=== PATIENT | male | born 1960 | race Caucasian/White ===

== ENCOUNTER 2016-10-07 15:54 | Inpatient (IN) | payer MEDICAID, OTHER ==
[~2016-10-07] VITALS: Ht 188 cm; Wt 71.5 kg
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
--- NOTE | ~2016-10-07 | CT4 ---
[facility] A Service of [facility] & [facility] RADIOLOGY TEXT RESULTS PATIENT: FRANCESCA RAI LOCATION: [facility] 333-01 : [birth year] UNIT #: [id number] AGE: [address]: Reece Carter MD SEX: M ORDER DR: [id number] [facility]. [place], [place] [address] [id number] I MR#: [id number] Acc #: [id number] NAME: FRANCESCA RAI : 1960 SEX: M STUDY DATE/TIME: 10/07/2016 17:47 UNIT: CEDOF ROOM: 95646 STUDY DESCRIPTION: CT Abd and Pelv Wo Cont Attending Physician: Reece Carter M.D. Referring Physician: No Primary Care Physician Ordering Physician: Joe Zarate D.O. Primary Care Physician: No Primary Care Physician MEDICAL IMAGING REPORT This report is preliminary unless electronic signature is present EXAM CT abdomen and pelvis without contrast. HISTORY Abdominal pain, upper abdominal epigastric pain for 2 days. Rectal bleeding. TECHNIQUE Axial images performed through the abdomen and pelvis without contrast. Multi-plantar reconstructed images reviewed at a workstation. This CT exam was performed with one or more of the following radiation dose reduction techniques: automatic exposure control, adjustment of mA and/or kV according to patient size, and iterative reconstruction. FINDINGS ABDOMEN: Lung bases demonstrate severe emphysema with extensive right pleural thickening and extensive right pleural and diaphragmatic calcifications. This may be related to prior trauma or infection. Liver, spleen and gallbladder unremarkable. Pancreas and kidneys and adrenal glands unremarkable. Focal inflammatory changes are seen about the distal stomach and first portion of the duodenum could reflect underlying duodenitis or ulcer disease. Further evaluation with endoscopy may be warranted. No free air or free fluid. Visualized colon unremarkable. Diffuse aortic and iliac atherosclerotic changes. PELVIS: Bladder unremarkable. Postsurgical change seen in the right groin from femoral bypass. IMPRESSION 1. Suspected inflammatory changes within the distal stomach or proximal duodenum with bowel wall thickening and inflammation within the adjacent mesentery. This raises a concern for gastritis, duodenitis and/or ulcer disease. Further evaluation with endoscopy recommended. [facility] A Service of [facility] & [facility] RADIOLOGY TEXT RESULTS PATIENT: FRANCESCA RAI LOCATION: [facility] 333-01 : [birth year] UNIT #: [id number] AGE: [address]: Reece Carter MD SEX: M ORDER DR: No perforation or free air seen. 2. Severe emphysema, fibrosis at lung bases with extensive right pleural diaphragmatic calcifications. Dictated by... Kim Goodman M.D. THIS IS AN ELECTRONICALLY VERIFIED REPORT Kim Goodman M.D. at 10/08/2016 1:03 PM Ingrid TD: 10/08/2016 01:16 JOB #: [id number] MEDICAL IMAGING REPORT Page 1 of 1 COPY
--- NOTE | ~2016-10-07 | XA257 ---
[facility] A Service of [facility] & [facility] RADIOLOGY TEXT RESULTS PATIENT: FRANCESCA RAI LOCATION: [facility] 547-01 : [birth year] UNIT #: [id number] AGE: [address]: Sophy Ruiz MD SEX: M ORDER DR: [id number] [facility] [address] [facility]. [place], [place] [address] [id number] I MR#: [id number] Acc #: [id number] NAME: FRANCESCA RAI : 1960 SEX: M STUDY DATE/TIME: 10/11/2016 16:47 [facility] ST[facility]Y DESCRIPTION: XA [place] Arterial/Venous Bleed Attending Physician: Sophy Ruiz M.D. Referring Physician: No Primary Care Physician Ordering Physician: Roberto Richards M.D. Primary Care Physician: No Primary Care Physician MEDICAL IMAGING REPORT This report is preliminary unless electronic signature is present EXAM Mesenteric arteriogram with gastroduodenal artery embolization with conscious sedation. HISTORY Active bleeding duodenal ulcer seen in endoscopy. Significant active GI bleeding. TECHNIQUE The procedure was explained to the patient including risks, benefits, and complications. Informed consent was obtained and a formal time-out procedure was utilized. Informed consent was obtained from the patient's family. Full barrier sterile technique was utilized including long drapes, ChloraPrep skin preparation, cap, gloves, gowns, masks, shoe covers. Conscious sedation was employed with intravenous Versed and Fentanyl that was administered by nursing who was present and monitoring the patient during the examination. Total face time with the patient by the physician 45 minutes. TECHNIQUE Using full barrier sterile technique and following local anesthesia with 1% Xylocaine, a micropuncture set was used access the right common femoral artery. A 5-Canadian dilator was placed over the wire and a 5-Canadian sheath was placed at the groin. Through this a 5-Canadian C2 catheter was used initially to inject the celiac axis. The hydrophilic glide wire would not pass through the CT catheter. A Cobra catheter was used instead, satisfactorily. The Cobra catheter was anchored at the origin of the celiac axis and through this, a 3-Canadian Progreat tracking catheter was passed into the gastroduodenal artery and multiple DSA views were obtained. The catheter was advanced to the site of bleeding and contrast could be seen flowing directly from the catheter into the duodenal bulb. At this location, a series of coils were deposited in the duodenal branch and back into the gastroduodenal artery almost back to the hepatic artery [facility] A Service of [facility] & [facility] RADIOLOGY TEXT RESULTS PATIENT: FRANCESCA RAI LOCATION: [facility] 547-01 : 56 UNIT #: [id number] AGE: [address]: Sophy Ruiz MD SEX: M ORDER DR: origin. 6 coils were used. Three 2 mm x 4 cm coils, L1 3 mm x 5 cm coil, and to 3 mm x 10 cm coils. Packing of the coils was satisfactory. Repeat DSA imaging after coil placement shows no significant flow through the occluded segment. The catheters and sheath were withdrawn. Hemostasis was achieved at the groin with an Angio-Seal device. Total fluoroscopy time 18.2 minutes. Total contrast utilized at 25 mL of Isovue. The patient will be kept on bed rest for 4 hours following the procedure with close monitoring of vital signs. IMPRESSION Technically successful coil embolization of the gastroduodenal artery and the main duodenal branch to the site of bleeding. Dictated by... Jhonny Sanchez M.D. THIS IS AN ELECTRONICALLY VERIFIED REPORT Jhonny Sanchez M.D. at 10/12/2016 3:39 PM LUANN/kyler TD: 10/12/2016 08:31 JOB #: [id number] MEDICAL IMAGING REPORT Page 1 of 1 COPY
--- NOTE | ~2016-10-07 | EKG ---
PATIENT: FRANCESCA RAI UNIT #: [id number] Ventricular Rate: 125 BPM Atrial Rate: 125 BPM P-R Interval: 152 ms QRS Duration: 86 ms Q-T Interval: 326 ms QTC Calculation(Bezet): 470 ms Calculated R [place]: 37 degrees Calculated T [place]: 88 degrees Diagnosis Line: Sinus tachycardia Diagnosis Line: Cannot rule out Inferior infarct , age Diagnosis Line: undetermined Diagnosis Line: ST and T wave abnormality, consider anterolateral Diagnosis Line: ischemia Diagnosis Line: Abnormal ECG Diagnosis Line: No previous ECGs available Diagnosis Line: Confirmed by YEN HOGUE MD ([id number]) on Diagnosis Line: 10/10/2016 5:06:45 PM INTERPRETING MD: LENNIE ERICKSON
--- NOTE | ~2016-10-07 | CR72 ---
[facility] A Service of [facility] & [facility] RADIOLOGY TEXT RESULTS PATIENT: FRANCESCA RAI [address]: [address] : [birth year] UNIT #: [id number] AGE: [address]: Spohy Ruiz MD SEX: M ORDER DR: [id number] [facility] [address] [facility]. [place], [place] [address] [id number] I MR#: [id number] Acc #: [id number] NAME: FRANCESCA RAI : 1960 SEX: M STUDY DATE/TIME: 10/10/2016 5:09 UNIT: [facility] ROOM: [facility] STUDY DESCRIPTION: CR Chest Single View Portable Attending Physician: Sophy Ruiz M.D. Referring Physician: Primary Care Physician No Ordering Physician: Ed Doctor [id number] [facility] Primary Care Physician: Primary Care Physician No MEDICAL IMAGING REPORT This report is preliminary unless electronic signature is present EXAM Portable chest, 10/10/2016 HISTORY Post invasive procedure. Central line placement today. FINDINGS There is no prior chest radiograph for comparison. The heart is normal in size. Right internal jugular central line tip is in the superior vena cava. The lungs are hyperinflated with emphysematous and fibrotic changes characteristic of COPD. Pleural thickening and calcifications are seen at the right lung base. There is no airspace consolidation. There is no pneumothorax. IMPRESSION COPD with right internal jugular central line tip SVC. No pneumothorax. Dictated by... Keanu Olmos M.D. THIS IS AN ELECTRONICALLY VERIFIED REPORT Keanu Olmos M.D. at 10/10/2016 2:13 PM GA/reena TD: 10/10/2016 09:21 JOB #: [id number] MEDICAL IMAGING REPORT Page 1 of 1 COPY
--- NOTE | ~2016-10-07 | A ---
[facility] Nutrition Therapy DATE: 10/10/16 Patient: FRANCESCA RAI Physician: KATHIA Address: [address] [facility] Room/Bed: [address], Zip: [place] [address] Admit Date: 10/07/16 Date of : 56 Height: 6 2 Weight: 159 72.5 NUTRITIONAL ASSESSMENT: REASON: Low BMI, NPO in ICU (rapid response transfer from 10/09) Admitting dx: 56 y/o male admitted with GIB PMH: Depression, ETOH abuse, ischemic R foot, smoker, PTSD, CAD, PVD, HTN Anthropometrics: Ht: 74", Wt: 134 lbs (family confirms; pt is NOT 159 lbs), BMI: 17.3 (underweight) Labs: Na 134, glucose 113, AST 46, Mg 1.5, Phos/K WNL Meds: Zofran prn, therapeutic formula, protonix drip, NSIVF @ 100 ml/hr I/O & Bowel function: BM 10/10 Skin Integrity: Ischemic R foot, no edema Estimated Nutrition Needs: Increased due to underweight status/clinical condition Assessment: Chart reviewed, events noted. Patient on room air, with anxiety/confusion. EGD yesterday (10/09) showed clots in stomach, source of GIB unclear. He is scheduled for amputation of R foot today however due to receiving 4 units of blood and Hgb of 7.8 he may not get surgery today. He remains NPO since yesterday, was on clear liquids prior to NPO status). Has been without adequate nutrition x 3 days. Spoke with family at bedside who confirmed weight of 134 lbs, which puts the pt in the underweight category. They were unsure of recent weight loss. Discussed sending chocolate Ensure once oral diet advances. See RD recs, will follow. Dx: 1) Inadequate energy intake r/t diet not yet advanced AEB clear liquids/NPO x 3 days. 2) Underweight r/t unknown etiology AEB BMI 17.3. Intervention: GI soft diet/ONS Monitoring, Evaluation and Goals: 1. Tolerance of diet advancement. 2. Gradual weight gain towards a healthy BMI range. 3. Lytes WNL. Monitor: per protocol, criteria to determine if above goals met [facility] Nutrition Therapy DATE: 10/10/16 Patient: FRANCESCA LAMBOPHELIAJoshua Physician: KATHIA Address: [address] [facility] Room/Bed: [address], Zip: [place] [address] Admit Date: 10/07/16 Date of : [birth year] Height: 6 2 Weight: 159 72.5 Recommendations: 1. Once medically feasible advance to clear liquid diet and order Ensure clear mixed bolanos TID. Advance to full liquids and then GI soft diet as tolerated. Once diet advanced beyond clear liquids please change oral supplement to chocolate Ensure Enlive BID to provide more kcals/protein to promote weight gain. Once GIB resolved pt will be appropriate for a regular diet. 2. Replace lytes prn. 3. Please weigh q 3 days for monitoring purposes, as he is clinically underweight. RD will follow Moderate nutrition risk Respectfully, Krystal Barnard, TRUDY, CANDE [employer] [facility] cc: client file
--- NOTE | ~2016-10-07 | HP ---
Unit #: [id number] #: [id number] Patient: FRANCESCA RAI [id number] [facility]. [place], [place] [address] [id number] MR#: [id number] NAME: FRANCESCA RAI ROOM: 333 Age: 56 Sex: M Admission Date: 10/07/2016 : 1960 Attending Physician: Reece Carter M.D. HISTORY AND PHYSICAL CHIEF COMPLAINT Epigastric pain, GI bleed, and dark, black tarry stool. DISCUSSION This is a 56-year-old gentleman who has a past medical history significant for history of anxiety, depression, posttraumatic stress disorder, tobacco abuse, and alcohol abuse on a daily basis. He said he had an ischemic right foot. He had a femoral-popliteal bypass two years ago which has failed, and he has been having chronic right foot pain. He was told he needs amputation, but he said he has been holding on it. He has recently been drinking one pint of whiskey on a daily basis to kill the pain and has also been using marijuana on a daily basis. He presented to the emergency room today with the chief complaint of having epigastric pain which has been going on for almost one month and has been having dark, black tarry stool off and on for one week, and with increasing abdominal pain and weakness he came to the ER. He underwent workup, and his CT scan of the abdomen shows inflammatory changes in the distal stomach and also in proximal duodenum consistent with ulceration of the duodenum and gastritis versus peptic ulcer disease. He has been admitted for further workup and evaluation. He has been complaining of severe right foot pain. Denies fever, chills, or any other complaints. PAST MEDICAL HISTORY 1. Peripheral vascular disease. 2. (1) . 3. Ischemic right foot with history of right femoral-popliteal bypass two years ago which has failed. 4. Hypertension. 5. Anxiety and depression/posttraumatic stress disorder. SOCIAL HISTORY He has smoked one pack daily since age 13. He drinks alcohol, one pint of whiskey daily, and marijuana on a daily basis. FAMILY HISTORY Mother and father have history of heart disease and both from lung cancer. HOME MEDICATIONS 1. Zestril 40 mg daily. 2. Citalopram 40 mg daily. REVIEW OF SYSTEMS Unit #: [id number] #: [id number] Patient: FRANCESCA RAI CONSTITUTIONAL: Positive for generalized weakness but no fever. SKIN: No rash. ENDOCRINE: No history of diabetes and no polyuria or polydipsia. PULMONARY: No cough, no wheezing, and no shortness of breath. GASTROINTESTINAL: He reported dark, black tarry stool off and on for one week and diffuse epigastric pain. GENITOURINARY: No dysuria. NEUROLOGIC: No headache, no dizziness, no loss of consciousness. PSYCHIATRIC: Normal mood and affect. EXTREMITIES: Severe right foot pain. PHYSICAL EXAMINATION GENERAL: A middle-aged male lying in the bed comfortably, currently not in any distress. He is alert, awake, and oriented x3. CURRENT VITAL SIGNS: Temperature 98.4, respiratory rate 18, heart rate 90, blood pressure 137/84, and oxygen 100%. HEENT: Pupils equally reactive to light and accommodation. Head is normocephalic and atraumatic. NECK: Supple. No JVD. HEART: S1 and S2, regular rate and rhythm. LUNGS: Clear to auscultation bilaterally. No rhonchi and no wheezing. ABDOMEN: Soft, nontender, and nondistended. Bowel sounds positive. EXTREMITIES: Right foot with positive tenderness on touching in the foot. I did not feel any dorsalis pedis pulse. NEUROLOGIC: No focal neurologic deficit. Cranial nerves II-XII intact bilaterally, 5 out of 5 on both side. SKIN: No rash. PSYCHIATRIC: Normal mood and affect. DIAGNOSTIC STUDIES LABORATORY: INR 0.9. Troponin less than 0.05. WBC 8, hemoglobin 12, hematocrit 38, and platelets of 429,000. Chemistry with sodium of 136, potassium 4, chloride 101, CO2 of 23, glucose 92, BUN 17, and creatinine 0.69. LFTs within normal limits. Lipase 34. IMAGING: CT scan shows inflammatory changes around the distal stomach and proximal duodenum. ASSESSMENT AND PLAN 1. Gastrointestinal bleed with epigastric pain. Differential diagnosis includes gastritis, duodenitis, and peptic ulcer disease. Will keep the patient on clear liquid diet, start on IV Protonix, monitor hemoglobin and hematocrit, and ask Gastroenterology, Dr. Richards, to evaluate. 2. Peripheral vascular disease with ischemic right foot with history of right femoral-popliteal bypass which has failed. As per him, he was told he needs amputation. Will ask Vascular Surgery to evaluate. 3. Hypertension. 4. History of depression and posttraumatic stress disorder. Continue citalopram. 5. Alcohol abuse, uses whiskey one pint on a daily basis. Will place the patient on CIWA protocol. 6. Tobacco abuse. 7. Deep venous thrombosis prophylaxis. Will place the patient on SCDs. 1. Dictated by Martha Sullivan M.D. Unit #: [id number] #: [id number] Patient: CECELIAFRANCESCA Birgit TD: 10/08/2016 14:55 JOB #: [id number] HISTORY AND PHYSICAL Page 1 of 1 X X HISTORY AND PHYSICAL
--- NOTE | ~2016-10-07 | CO ---
Unit #: [id number] #: [id number] Patient: FRANCESCA RAI [id number] [address] [place], [place] [address] [id number] I MR#: [id number] NAME: FRANCESCA RAI ROOM: 562 Age: 56 Sex: M Admission Date: 10/07/2016 : 1960 Attending Physician: Sophy Ruiz M.D. Primary Care Physician: Primary Care Physician No Consultation Date: 10/13/2016 CONSULTATION REPORT REASON FOR CONSULTATION Atrial fibrillation. HISTORY OF PRESENT ILLNESS This is a 56-year-old male with a prior history of hypertension, COPD, severe peripheral artery disease, status post fem-pop bypass in 2014 with persistent chronic foot pain, PTSD, anxiety, depression, tobacco abuse x40 years, alcoholism, and daily marijuana use. He presented to the ER on 10/07 with ongoing epigastric pain and tarry stools for approximately [address] scan of the abdomen showed gastric inflammatory changes consistent with an ulcer. In addition, Vascular was consulted for his ischemic right foot. On 10/10/2016, he underwent right above-knee amputation. Postoperatively, he had a low hemoglobin of 4 to 6. On 10/11/2016, he underwent an EEG with GDA embolization. Last night, he experienced atrial fibrillation with rates in the 150s to 160s. He was given a Cardizem bolus and started on Cardizem drip. He is now in normal sinus rhythm with controlled rate in the 80s. He denies any prior history of cardiac disease. Denies chest pain or shortness of air at rest or with activities. He does report palpitations with episodes of anxiety. States he has PTSD with anxiety attacks. An EKG on 10/09/2016 showed atrial fibrillation with rate of 108, and EKG last night showed atrial fibrillation with rapid ventricular rate of 132. PAST MEDICAL HISTORY 1. Severe peripheral artery disease, status post fem-pop bypass in 2014. 2. Hypertension. 3. Chronic obstructive pulmonary disease. 4. Posttraumatic stress disorder. 5. Anxiety. 6. Depression. 7. Tobacco abuse x40 years. 8. Alcoholism, drinks 1 pint per day. 9. Marijuana use. SOCIAL HISTORY Lives with his . He states he is survivor of [place] and has suffered from PTSD since then. He drinks 1 pint of whisky per day. He has been smoking marijuana everyday due to his chronic foot pain. He does smoke 1 pack per day since the age of 13. FAMILY HISTORY Positive for coronary artery disease in his mother and father. Unit #: [id number] #: [id number] Patient: FRANCESCA RAI PAST SURGICAL HISTORY 1. Right thoracotomy with lung resection for a benign mass. 2. Right femoral-tibial bypass graft with prosthetic graft. 3. Right above-knee amputation on 10/10/2016. 4. EGD with GDA embolization on 10/11/2016. ALLERGIES No known drug allergies. HOME MEDICATIONS Zestril 40 mg p.o. daily and citalopram 40 mg p.o. daily. REVIEW OF SYSTEMS A 10-point review of systems was conducted and was otherwise negative except for what was stated in the HPI. PHYSICAL EXAMINATION VITAL SIGNS: Temperature 98.9, heart rate 85, respiratory rate 18, and blood pressure 117/66. GENERAL APPEARANCE: This is a 56-year-old male, resting in bed, in no acute distress. HEENT: Head is atraumatic and normocephalic. Pupils are equal and reacting to light. Mucous membranes are moist. NECK: Supple. Trachea is midline. Negative for JVD. LUNGS: Clear. Diminished at bases. Nonlabored respirations. EXTREMITIES: Left lower extremity, pulses palpable, no pedal edema. No cyanosis. NEUROLOGIC: Alert and oriented x3. Moves all extremities equally and following commands without difficulty. DIAGNOSTIC STUDIES LABORATORY RESULTS: Sodium 136, potassium 3.5, chloride 108, BUN 9, creatinine 0.5, glucose 89, and magnesium 1.7. Hemoglobin 8.9, hematocrit 27.1, white blood cell count 12.9, and platelets 179. AST 23, ALT 11, and alkaline phosphatase 47. IMAGING STUDIES: Chest x-ray shows normal heart size. Hyperinflated lungs with emphysematous and fibrotic changes characteristic COPD. Pleural thickening and calcification at right lung base. No pneumothorax. CARDIOVASCULAR STUDIES: EKG on 10/09/2016 showed atrial fibrillation with rate of 108. EKG on 10/12/2016, which showed atrial fibrillation with rate of 152. No acute ST changes. ASSESSMENT 1. Upper gastrointestinal bleed secondary to duodenal ulcer, status post esophagogastroduodenoscopy with gastroduodenal artery embolization on 10/11/2016. 2. Peripheral artery disease, status post right above-knee amputation on 10/10/2016. 3. New paroxysmal atrial fibrillation with rapid ventricular rate, now normal sinus rhythm. 4. Anemia. 5. ETOH abuse. 6. Tobacco abuse. Unit #: [id number] #: [id number] Patient: FRANCESCA RAI He has currently normal sinus rhythm. We will discontinue his Cardizem drip and start p.o. Cardizem 30 mg p.o. every 6 hours. We will provide parameters to hold if his rate less than 60 or systolic blood pressure less than 100. We will check an echocardiogram. Check his magnesium level. We will not anticoagulate him due to his high risk for bleeding. Thank you for asking us to see this patient. We appreciate the consult. Dictated by... RIKKI Villalta/kathleen TD: 10/14/2016 05:45 JOB #: [id number] CONSULTATION REPORT Page 1 of 1 X X CONSULTATION REPORT
--- NOTE | ~2016-10-07 | DS ---
Unit #: [id number] #: [id number] Patient: FRANCESCA RAI [id number] [address] [address] [id number] I MR#: [id number] NAME: FRANCESCA RAI ROOM: 562 Age: 56 Sex: M Admission Date: 10/07/2016 : 1960 Discharge Date: 10/16/2016 Attending Physician: Sophy Ruiz M.D. Referring Physician: No Primary Care Physician Primary Care Physician: No Primary Care Physician DISCHARGE SUMMARY NOTE This is in followup of transition of care note dictated earlier. ADDITIONAL DISCHARGE DIAGNOSES 1. Acute delirium. 2. Systolic congestive heart failure. Ejection fraction 45%. No acute exacerbation. CONSULTANTS Dr. Cevallos, psychiatry. HOSPITAL COURSE Following last dictation, the patient became increasingly agitated and delirious last Sunday. He had been on Celexa as an outpatient, which had not been reinitiated in anticipation of his recent discharge. Ultimately Dr. Cevallos was consulted and the patient was placed back on his Celexa in addition to Vistaril and behavior has been much more appropriate. The patient was monitored all weekend by cardiology. He has converted back to normal sinus rhythm and then changed from Cardizem to metoprolol succinate. Ejection fraction is noted to be mildly low at 45%. Unfortunately, his blood pressure will not tolerate the addition of an TAQUERIA inhibitor at this time secondary to hypotension. This can be reevaluated as an outpatient. The patient is otherwise clinically stable and will be discharged home today with [facility] for a few visits psychiatric. DISCHARGE CONDITION Stable. DISPOSITION Discharge to home. DISCHARGE MEDICATIONS 1. Celexa 40 mg daily. 2. Vistaril 25 mg b.i.d. 3. Toprol XL 25 mg b.i.d. 4. Percocet 10/325 mg 0.5-1 tablet q.6 h. p.r.n. pain. 5. Protonix 40 mg b.i.d. DISCHARGE INSTRUCTIONS The patient was instructed to follow a regular diet. He can increase his activity as tolerated. He is to use a walker with activity. Unit #: [id number] #: [id number] Patient: FRANCESCA RAI FOLLOWUP 1. The patient is to follow up with Dr. Suhail Stevens in one month. 2. The patient is to follow up with Dr. Richards in four to six weeks. 3. The patient will follow up with Dr. Lin in one month as well. Dictated by... pAple Allen/jeevan TD: 10/18/2016 08:50 JOB #: [id number] DISCHARGE SUMMARY Page 1 of 1 X Sophy Ruiz MD X DISCHARGE SUMMARY
--- NOTE | ~2016-10-07 | CO ---
Unit #: [id number] #: [id number] Patient: FRANCESCA RAI [id number] [facility] [address] [facility]. [place], [place] [address] [id number] I MR#: [id number] NAME: FRANCESCA RAI ROOM: 562 Age: 56 Sex: M Admission Date: 10/07/2016 : 1960 Attending Physician: Sophy Ruiz M.D. Primary Care Physician: Primary Care Physician No Consultation Date: 10/15/2016 CONSULTATION REPORT REASON FOR CONSULTATION Followup. DISCUSSION Mr. Flannery is a 56-year-old male, seen in room 562, bed 1, on 10/15/2016 at [facility]. The patient dressed casually, lying comfortably in bed. The patient's family was at the bedside. The patient's vital signs; temperature 98.2, heart rate 66, respiratory rate 18, blood pressure 114/75, and oxygen saturation 98%. The patient reports medication helped him, able to sleep good, feeling better, decrease in anxiety and depression. Denied any psychotic symptom or any suicidal ideation. REVIEW OF SYSTEMS Complete review of systems is unremarkable. MENTAL STATUS EXAMINATION General appearance; the patient dressed casually, lying comfortably in bed. Attention span and concentration, fair. Speech, regular rate and coherent. Oriented in time, place, and person. Mood and affect, sad and dysphoric, but able to smile. Thought process, coherent. Thought content, the patient denied any suicidal or homicidal ideation. Denied any hallucination. Recent and remote memory, fair. Language, intact. Fund of knowledge, fair. Insight and judgment, fair to slightly impaired. DIAGNOSES Psychiatric: Major depressive disorder, recurrent, severe, F33.2; posttraumatic stress disorder, chronic; and anxiety disorder, not otherwise specified, F40.01. ASSESSMENT AND PLAN 1. Supportive psychotherapy and psychoeducation provided to the patient. 2. Educated about benefits and side effects of medication and course and prognosis of illness. 3. Advised to continue with current medication. If needed, consider further adjustment of medication. Please feel free to call if any questions, telephone #[phone]. Dictated by... Girish Cevallos M.D. ARASELI/kathleen Unit #: [id number] #: [id number] Patient: FRANCESCA RAI TD: 10/15/2016 19:52 JOB #: [id number] CONSULTATION REPORT Page 1 of 1 X Girish Cevallos MD CONSULTATION REPORT
--- NOTE | ~2016-10-07 | CO ---
Unit #: [id number] #: [id number] Patient: FRANCESCA HENDRICKS [id number] [facility] [address] [facility]. [place], [place] [address] [id number] I MR#: [id number] NAME: FRANCESCA HENDRICKS ROOM: 333 Age: 56 Sex: M Admission Date: 10/07/2016 : 1960 Attending Physician: Reece Carter M.D. Primary Care Physician: Primary Care Physician No Consultation Date: 10/08/2016 CONSULTATION REPORT CHIEF COMPLAINT Pain, right foot. HISTORY OF PRESENT ILLNESS Mr. Hendricks is a 56-year-old gentleman with a history of peripheral artery disease, who states that he underwent a right leg bypass with an artificial graft at [facility] about 2 years ago. He reports that his bypass graft thrombosed about 2 months ago. He was told that he has no alternatives except undergo a right above-knee amputation. He was not ready to proceed with amputation, so he was declined to have any type of intervention. The pain in his foot is so bad that has been drinking about one pint of liquor a day. However, he is now reporting blood in his stool. He presented to the emergency room at [facility] for further evaluation. He states that he was ambulatory when his bypass graft was open, but he has not been able to ambulate well since that time, because of pain in his right foot. He denies any similar pain in his left foot. He has never had ulceration or gangrene of his feet. He denies any fevers or chills. He states that he has been diagnosed with bleeding from his stomach in the past. He was on Coumadin to help keep his right leg bypass graft open, but his Coumadin was discontinued when he began bleeding from his stomach. PAST MEDICAL HISTORY Hypertension, hyperlipidemia, coronary artery disease. PAST SURGICAL HISTORY 1. Right thoracotomy with lung resection for a benign mass. 2. Right femoral tibial bypass graft with prosthetic graft. MEDICATIONS Lisinopril 40 mg p.o. daily, citalopram 40 mg p.o. daily. Since admission, he has also been started on Protonix and Zofran. ALLERGIES Penicillin. He is not sure what type of problem penicillin causes him. SOCIAL HISTORY He is and lives in [place]. 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 He smokes one pack of cigarettes per day. He drinks one pint of alcohol per day. He also smokes marijuana. FAMILY HISTORY Both parents had heart disease. He states that both parents of lung Unit #: [id number] #: [id number] Patient: FRANCESCA HENDRICKS cancer related to asbestos exposure. REVIEW OF SYSTEMS Positive for GI bleeding as described above. Otherwise 10-point review of systems negative. PHYSICAL EXAMINATION VITAL SIGNS: Temperature 97.4, pulse 62, respirations 16, blood pressure 112/75. GENERAL APPEARANCE: Thin white male, relatively stoic. Cooperative. Fully alert and oriented. Fair historian. No acute distress. HEENT: Extraocular movements intact. No xanthelasma of the eyelids. Oral mucosa is pink and moist. NECK: No cervical bruits. No JVD. LUNGS: Decreased breath sounds bilaterally. Clear. No use of accessory respiratory muscles. HEART: Regular rate and rhythm without murmur. No extra heart sounds. CHEST: Well-healed right lateral thoracotomy scar. ABDOMEN: Soft, nondistended, and nontender. No palpable masses. No palpable hepatomegaly or splenomegaly. EXTREMITIES: Both feet are cool. There is dependent rubor of the right foot. There is an open wound on the plantar aspect of the right fifth metatarsal head, which measures about 15 mm x 10 mm. There is no erythema, fluctuance, or drainage associated with his right foot wound. There are multiple well-healed surgical scars on the right leg including one over the right dorsalis pedis artery. Radial and femoral pulses are palpable bilaterally. Popliteal, dorsalis pedis, and posterior tibial pulses are not palpable on either side. DIAGNOSTIC STUDIES LABORATORY RESULTS: Remarkable for hemoglobin of 10.0 and white blood count 7.3. BUN and creatinine are 15 and 0.6 respectively. Estimated GFR is 110. Coags are normal. IMPRESSION 1. Ischemic rest pain of the right foot. Status post failed right femoral tibial bypass. 2. Active gastrointestinal bleeding. Evaluation of his gastrointestinal bleed is currently underway. He is tentatively scheduled for an esophagogastroduodenoscopy on 10/09/2016. 3. Hypertension. 4. Hyperlipidemia. 5. History of coronary artery disease. PLAN My recommendation would be to perform a lower extremity arterial segmental pressure to better evaluate the severity of his ischemia. If he requires an amputation, the segmental pressure will also help to determine his level of the amputation. I would also recommend a lower extremity arteriogram to see if he is a candidate for redo bypass surgery for attempted limb salvage. We can tentatively schedule arteriogram for 10/09/2016 or 10/10/2016 depending on the schedule in the timing of the upper GI endoscopy. Based on the results of the arteriogram, we can decide to proceed with redo right lower extremity revascularization versus primary amputation. The risks, benefits, and alternatives of the procedure were discussed with Unit #: [id number] #: [id number] Patient: FRANCESCA HENDRICKS the patient. Dictated by... Apple Kim/kathleen TD: 10/08/2016 12:16 JOB #: [id number] CONSULTATION REPORT Page 1 of 1 X Suhail Stevens MD X CONSULTATION REPORT
--- NOTE | ~2016-10-07 | TOC ---
Unit #: [id number] #: [id number] Patient: FRANCESCA RAI [id number] [address] [place], [place] [address] [id number] I MR#: [id number] NAME: FRANCESCA RAI ROOM: 562 Age: 56 Sex: M Admission Date: 10/07/2016 : 1960 Attending Physician: Sophy Ruiz M.D. Referring Physician: No Primary Care Physician Primary Care Physician: No Primary Care Physician TRANSFER OF CARE SUMMARY ANTICIPATED DATE OF DISCHARGE 10/14/2016. PRINCIPAL DIAGNOSES 1. Hemorrhagic shock secondary to number two. 2. Acute upper GI bleed secondary to duodenal ulcer, now status post embolization of the gastroduodenal artery. 3. Acute blood loss anemia, status post transfusion of six units of packed red blood cells. 4. Severe right lower extremity peripheral arterial disease, status post right xooxo-qyr-blik amputation. 5. New onset atrial fibrillation with rapid ventricular response, now converted back to normal sinus rhythm. 6. Non-anion gap metabolic acidosis. 7. Chronic alcohol abuse with very mild delirium tremens, now resolved. 8. Chronic obstructive pulmonary disease. 9. Acute hypoxic respiratory failure secondary to blood loss, now resolved. 10. Under weight. 11. Severe protein malnutrition. 12. History of hypertension with stable blood pressure currently. 13. Peripheral arterial disease. 14. Anxiety and depression. 15. PTSD. 16. Tobaccoism. CONSULTANTS Dr. Richards, gastroenterology. Dr. Stevens, vascular surgery. Dr. Ohara, pulmonology. PROCEDURES 1. EGD on 10/09/2016, with residual blood and clots and food residue in the fundus of the stomach. No active bleeding was noted. The rest of the upper gastrointestinal tract was normal. 2. Repeat EGD on 10/11/2016 with a large duodenal ulcer near the posterior duodenal bulb with a pulsating visible vessel; 3 cc of 1:10,000 epinephrine and heater probe were applied. 3. Mesenteric arteriogram with gastroduodenal artery embolization on 10/11/2016. 4. Ultrasound-guided cannulation of the left common femoral artery, abdominal and pelvic arteriogram, selective right lower extremity arteriogram and placement of left common femoral artery 5-Frisian Minx closure device on 10/09/2016. Unit #: [id number] #: [id number] Patient: FRANCESCA RAI 5. Right hkoha-hpd-xonv amputation on 10/10/2016. 6. Central line placement which occurred without complication. DIAGNOSTIC DATA IMAGING: CT scan of the abdomen and pelvis without contrast on 10/07/2016, with inflammatory changes of the distal stomach or proximal duodenum with bowel thickening, inflammation within the adjacent mesentery. Severe emphysema or fibrosis of the lung bases noted. Chest x-ray on 10/10/2016 with changes of chronic obstructive pulmonary disease. CLINICAL HISTORY/HOSPITAL COURSE Mr. Rai is a 56-year-old male admitted to the hospital due to having black tarry stools at home. The patient had been drinking alcohol heavily for quite some time to numb pain of chronic ischemic right foot, for which he did not want amputation. In the emergency department he was Hemoccult positive. Hemoglobin was found to be 12 and the patient was subsequently admitted. In regard to the patient's GI bleed, Dr. Richards was consulted. The patient was placed on Protonix IV q.12 h. The following morning hemoglobin was down to 10.0 and by the morning of the it dropped to 8.3. Plan was for a routine EGD on the . However, the patient developed significant amount of bright red blood per rectum and subsequently became hypotensive, tachycardic and hypoxic. He was subsequently transferred to the ICU and given aggressive fluid resuscitation. Hemoglobin following this episode dropped to as low as 4.9 and the patient was transfused 2 units of packed red blood cells. Later that day, when blood pressure and respiratory status were stable, the patient underwent the first of his EGDs with finding of a large clot. He was placed on Protonix drip. Just prior to this EGD he was continued on Protonix drip. However, the patient continued to be transfused and hemoglobin continued to drop back down. A second EGD was done on the , with findings as noted and the patient underwent epinephrine injection and heat probe placement. He subsequently was sent to IR and underwent embolization of his gastroduodenal artery. After this procedure hemoglobin has been trending upward and is now in the 8's. He has had no further abdominal pain and is tolerating a diet. He has been transitioned to oral Protonix. Need for alcohol cessation has been discussed extensively. The patient also needs to avoid NSAIDs in the future. Vascular surgery was consulted, given the patient's chronic right lower extremity ischemia, for which he had avoided amputation. He was seen her by vascular and on the prior to his large blood bowel movement underwent arteriogram which revealed no blood flow to the right lower extremity and plans were for an kvikk-cno-baxu amputation. After discussion with Dr. Richards, the patient subsequently underwent his right sfqve-twg-dbkq amputation on the . He is still having a little bit of oozing from the wound site, but otherwise in regard to this condition the patient is stable. He has received his AmpuShield. I will note the patient has no insurance and does not qualify for Medicaid. His family is well aware that he will have to go home and he does have a nurse in the family who is going to help him with physical therapy at home. I am going to ask [place] to evaluate to hopefully help with perhaps reduced cost therapy on an outpatient basis. As noted above, the patient did have significant alcohol use, but only had Unit #: [id number] #: [id number] Patient: FRANCESCA RAI very mild withdrawal. No type of seizure. He is going to be seen by social work regarding alcohol treatment. The patient did have a very short run of atrial fibrillation with his initial hypotension when transferred to the unit, but then transitioned back to normal sinus rhythm. However, last evening he returned to atrial fibrillation and was placed on Cardizem drip, which has converted him back to normal sinus rhythm. I am awaiting cardiology evaluation and will likely transition the patient to oral rate control medications. At this point in time, given his other conditions, he is a very poor candidate for anticoagulation and this would not be in his best interest. As noted above, the patient has no medical insurance and is unable to get it through his 's employer at this time and makes too much for Medicaid. I believe that the family is in the process of trying to perhaps arrange insurance through the exchange. The family, however, is agreeable to taking the patient home with the necessary equipment and we will try to arrange outpatient physical therapy at reduced cost at [facility]. I anticipate home within the next 24-48 hours and further hospital course will be dictated as an addendum. Dictated by... Sophy Ruiz M.D. CARLYH/gz TD: 10/13/2016 09:23 JOB #: [id number] TRANSFER OF CARE SUMMARY Page 1 of 1 X Sophy Ruiz MD X TRANSFER OF CARE SUMMARY
--- NOTE | ~2016-10-07 | CO ---
Unit #: [id number] #: [id number] Patient: FRANCESCA HENDRICKS [id number] [address] [place], [place] [address] [id number] I MR#: [id number] NAME: FRANCESCA HENDRICKS ROOM: [facility] Age: 56 Sex: M Admission Date: 10/07/2016 : 1960 Attending Physician: Sophy Ruiz M.D. Consultation Date: 10/09/2016 CONSULTATION REPORT REASON FOR CONSULTATION Upper gastrointestinal bleed, melena, and anemia of acute gastrointestinal blood loss. HISTORY OF PRESENT ILLNESS Mr. Hendricks is a 56-year-old white gentleman, who has presented with pain in the right foot and has been found to have failed femoral-popliteal bypass done couple of years ago with recurrent ischemia of the right foot. In addition, he also presents with history of epigastric pain along with black tarry stools for about a week before presentation. The patient was found to have a normal hemoglobin at admission which has since dropped from 12 to 8. PAST MEDICAL HISTORY Significant for history of anxiety, depression, hypertension, PTSD, ischemic right foot with history of right femoral-popliteal bypass surgery done years ago, history of peripheral arterial disease. MEDICATIONS At home included citalopram and Zestril. SOCIAL HISTORY Smokes a pack of cigarette daily from the past 40 to 45 years. Does drink alcohol, 1 pint of whiskey on a daily basis and uses marijuana on a daily basis. ALLERGIES No known drug allergies. FAMILY HISTORY Heart disease and lung cancer in both parents. REVIEW OF SYSTEMS Detailed review of organ systems does not reveal any recent weight loss. No history of fever, chills, or rigors. No history of headache, seizures, chest pain, or syncope. No history of cough, expectoration, or hemoptysis. No history of dysuria, hematuria, or pyuria. No history of focal seizures or extremity weakness. There is history of right foot pain from the ischemic foot. PHYSICAL EXAMINATION GENERAL: He is alert and oriented, and appears comfortable. VITAL SIGNS: Stable with a temperature of 98.5, pulse is 95 per minute and regular, respirations 18, blood pressure is 100/70. He weighs 134 Unit #: [id number] #: [id number] Patient: FRANCESCA HENDRICKS pounds and appears average. HEENT: He has mild pallor. There being no icterus, lymphadenopathy, or peripheral edema. CARDIOVASCULAR: Normal heart sounds. No murmurs. LUNGS: Auscultation over the lungs reveals normal breath sounds. Good air entry. ABDOMEN: Soft and nontender. Liver and spleen are not palpable. Bowel sounds normal. DIAGNOSTIC STUDIES LABORATORY RESULTS: Shows a hemoglobin of 8.3, baseline hemoglobin on admission day before yesterday was 12.5; his white count is normal at 6000; MCV is elevated to 107; and platelet count is 307. INR is 0.9. Serum chemistry shows normal BUN, creatinine, and electrolytes and albumin of 2.8 yesterday and 3.5 day before yesterday. LFTs otherwise normal. Alcohol level on admission was 73. IMAGING STUDIES: The patient had a CT scan of the abdomen and pelvis without contrast, and the latter showed thickening and inflammation of the distal stomach and adjacent duodenum in this entry as well as severe emphysema. IMPRESSION 1. The patient most likely has had an upper gastrointestinal bleed as a result of gastroduodenal ulcer. 2. Anemia of acute gastrointestinal blood loss. 3. Underlying chronic obstructive pulmonary disease and emphysema. 4. Right ischemic foot as a result of peripheral arterial disease. MANAGEMENT PLAN 1. The patient being seen by Vascular surgery. 2. An upper GI endoscopy and possible endotherapy will be needed and is being scheduled for later today. The pros and cons of procedure, potential risks, and complications were discussed with the patient, he was reassured. Thank you for asking me to see this pleasant gentleman. I appreciate the consult. Dictated by... Apple Kidd/kathleen TD: 10/09/2016 13:11 JOB #: [id number] CC: Apple Perales M.D. Unit #: [id number] #: [id number] Patient: FRANCESCA HENDRICKS CONSULTATION REPORT Page 1 of 1 X Roberto Richards MD X CONSULTATION REPORT
--- NOTE | ~2016-10-07 | OR ---
Unit #: [id number] #: [id number] Patient: FRANCESCA RAI [id number] [address] [place], [place] [address] [id number] MR#: [id number] NAME: FRANCESCA RAI ROOM: [facility] Date of Procedure: 10/09/2016 Admission Date: 10/07/2016 Surgeon: Mariza Queen M.D. : 1960 Attending Physician: Sophy Ruiz M.D. Referring Physician: Primary Care Physician No OPERATIVE REPORT PREOPERATIVE DIAGNOSES Peripheral arterial disease with ischemic rest pain of the right lower extremity. POSTOPERATIVE DIAGNOSES Peripheral arterial disease with ischemic rest pain of the right lower extremity. PROCEDURES PERFORMED 1. Ultrasound-guided cannulation, left common femoral artery. 2. Abdominal and pelvic arteriogram. 3. Selective right lower extremity arteriogram. 4. Placement of left common femoral artery 5-Mosotho Mynx closure device. ANESTHESIA Local with sedation, total time 45 minutes. COMPLICATIONS None. ESTIMATED BLOOD LOSS 10 mL. SPECIMENS None. INDICATIONS FOR PROCEDURE The patient is a 56-year-old gentleman with significant peripheral arterial disease with a past history of bypass of the right lower extremity that had failed 2 years ago. He was offered at that time amputation as no other re-constructable options of the right leg were identified. He deferred at that time, and is now admitted for other reasons, but has increasing in significant rest pain of the right lower extremity. He was seen over the weekend and recommended an arteriogram. He understood the planned procedure including the associated risks, benefits, complications, and alternatives and he wishes to proceed. DESCRIPTION OF PROCEDURE The patient was taken to the operating room, placed on the operating table in the supine position. Following initiation of continuous pulse, pulse oximetry, and blood pressure monitoring by nursing staff, he was given Versed and fentanyl for sedation. Total time of sedation was 45 minutes. Unit #: [id number] #: [id number] Patient: FRANCESCA RAI The bilateral groins were then prepped and draped in normal standard manner. Using fluoroscopy, the femoral heads were identified and marked. Using ultrasound, the left common femoral artery was identified and 1% lidocaine was infused over it. Using the ultrasound, the artery was directly cannulated under direct ultrasound vision with the access needle and a starter wire was then passed into the infrarenal aorta confirmed on fluoroscopy. A 4-Mosotho sheath was advanced over the wire and a sheath arteriogram confirmed common femoral artery placement. An Omni Flush catheter was advanced to the L1 vertebral body. An abdominal and pelvic arteriogram was then performed with 20 mL of contrast at 10 mL/second. Utilizing a glidewire, the Omni Flush catheter was selectively placed into the distal right external iliac artery and then a bolus moraima technique arteriogram of the right lower extremity was performed from the femoral head to the toes with 40 mL of contrast at 4 mL/second. A single arteriogram of the right foot was then performed with 20 mL of contrast at 5 mL/sec. The Omni Flush catheter was withdrawn over a wire and a 5-Mosotho sheath was used to replace this 4-Mosotho sheath. A 5-Mosotho Mynx closure device was then advanced into the sheath and deployed without incident with hemostasis being excellent. Pressure was held on the site for 5 minutes. No bleeding was noted. Dressing applied. The procedure was then terminated. The patient tolerated the procedure well and was taken to the recovery room in stable condition. All needle, sponge, and instrument counts were correct at the end of the case. FINDINGS The abdominal aorta is widely patent from the renal arteries to the aortic bifurcation. There were single renal vessel bilaterally. The right and left common iliac artery, internal iliac artery, and external iliac arteries were patent with mild diffuse atherosclerotic plaque, but no stenosis. The right common femoral artery and profunda femoral artery were widely patent with no stenosis or occlusions. The right superficial femoral artery and popliteal arteries are occluded and did not reconstitute. The anterior tibial artery and peroneal arteries are occluded and did not reconstitute. The posterior tibial artery proximally is occluded, but in the mid calf reconstitutes via collaterals and then is patent for a short distance and is very small and only fills from the mid calf to above the malleolus. There is no observable flow into the right foot. Dictated by... Apple Handy/kathleen TD: 10/10/2016 03:15 JOB #: [id number] Unit #: [id number] #: [id number] Patient: FRANCESCA RAI OPERATIVE REPORT Page 1 of 1 X Mariza Queen MD PROCEDURE OPERATIVE NOTE
--- NOTE | ~2016-10-07 | OR ---
Unit #: [id number] #: [id number] Patient: FRANCESCA RAI [id number] [address] [place], [place] [address] [id number] I MR#: [id number] NAME: FRANCESCA RAI ROOM: 56 Date of Procedure: 10/11/2016 Admission Date: 10/07/2016 Surgeon: Roberto Richards M.D. : 1960 Attending Physician: Sophy Ruiz M.D. OPERATIVE REPORT PREOPERATIVE DIAGNOSIS Upper gastrointestinal bleed. PROCEDURES PERFORMED Upper gastrointestinal endoscopy and hemorrhage control. POSTOPERATIVE DIAGNOSES The patient had a large anterior duodenal ulcer located near the roof of the duodenal bulb. There was a single pulsating visible vessel in the middle of the ulcer. The ulcer was at least 1.52 cm in size. After injection of epinephrine, the visible vessel was coagulated using heater probe application. Subsequently, significant hemorrhage was noted and an Endoclip was applied. The area was then immediately covered with a clot formation. RECOMMENDATIONS The patient has had extremely high risk of recurrent bleed and embolization of the gastroduodenal artery is needed. Discussion was held with intervention radiologist on-call and the patient was taken immediately to the intervention radiology suite for embolization therapy. SEDATION USED MAC. DESCRIPTION OF PROCEDURE Following detailed explanation of the potential risks and complications of an upper endoscopy, namely perforation, bleeding, and complication related to sedation, the patient was brought to GI lab. The patient was laid in the supine position, head of the bed elevated. The procedure was done in intensive care unit. Sedation using MAC was given. A bite-block was placed. Lubricated tip of the Olympus video upper endoscope was passed through bite-block into the proximal esophagus under direct vision. The entire esophageal mucosa was examined and appeared normal. Z-line was nicely demarcated, there being no esophagitis or hiatus hernia. The scope was advanced into the gastric cavity and the latter was insufflated. The entire gastric mucosa appeared clear except for presence of fresh blood entering into the stomach from the duodenum through the pyloric channel. The scope was then advanced and the pylorus was intubated with visualization of the duodenal bulb. A large duodenal ulcer was noted located near the roof posteriorly off the duodenal bulb. The ulcer was at least 1.52 cm in size, grayish-white ulcer base, and a single pulsating visible vessel in the middle. After careful assessment, we proceeded to Unit #: [id number] #: [id number] Patient: FRANCESCA RAI with visible vessel. 1:10,000 epinephrine was injected around the visible vessel, about 3 mL was injected. Then, using heater probe application, the visible vessel was treated by coaptive coagulation, instantly it started to bleed. After significant coaptive coagulation was done, it was felt that continuation will be lead to perforation. A single Endoclip was then applied. The area was rapidly covered with fresh hemorrhage and clot formation making it impossible to visualize the initial area of interest. However, clot formation suggested cessation of hemorrhage. The scope was then withdrawn after suctioning of the blood and blood residue. I then called the Intervention Radiology and spoke with the intervention radiology doctor and the patient was taken down to the intervention radiology suite for embolization therapy. This was done successfully and family was appropriately kept informed throughout the procedure. Dictated by... Apple Kidd/kathleen TD: 10/12/2016 08:25 JOB #: [id number] CC: Sophy Ruiz M.D. OPERATIVE REPORT Page 1 of 1 X Roberto Richards MD X PROCEDURE OPERATIVE NOTE
--- NOTE | ~2016-10-07 | EKG ---
PATIENT: FRANCESCA RAI UNIT #: [id number] Ventricular Rate: 108 BPM Atrial Rate: 87 BPM QRS Duration: 90 ms Q-T Interval: 362 ms QTC Calculation(Bezet): 485 ms Calculated R [place]: -19 degrees Calculated T [place]: 118 degrees Diagnosis Line: Atrial fibrillation with rapid ventricular Diagnosis Line: response Diagnosis Line: ST depression, consider subendocardial injury or Diagnosis Line: digitalis effect Diagnosis Line: Nonspecific T wave abnormality , probably Diagnosis Line: digitalis effect Diagnosis Line: Abnormal ECG Diagnosis Line: When compared with ECG of 09-OCT-2016 16:08, Diagnosis Line: (unconfirmed) Diagnosis Line: Atrial fibrillation has replaced Sinus rhythm Diagnosis Line: T wave inversion no longer evident in Anterior Diagnosis Line: leads Diagnosis Line: Confirmed by YEN HOGUE MD ([id number]) on Diagnosis Line: 10/10/2016 5:07:45 PM INTERPRETING MD: LENNIE ERICKSON
--- NOTE | ~2016-10-07 | EKG ---
PATIENT: FRANCESCA RAI UNIT #: [id number] Ventricular Rate: 152 BPM Atrial Rate: 90 BPM QRS Duration: 74 ms Q-T Interval: 274 ms QTC Calculation(Bezet): 435 ms Calculated R [place]: -17 degrees Calculated T [place]: 115 degrees Diagnosis Line: Atrial fibrillation with rapid ventricular Diagnosis Line: response with premature ventricular or aberrantly Diagnosis Line: conducted complexes Diagnosis Line: ST and T wave abnormality, consider anterolateral Diagnosis Line: ischemia or digitalis effect Diagnosis Line: Abnormal ECG Diagnosis Line: When compared with ECG of 09-OCT-2016 18:26, Diagnosis Line: ST more depressed Anterior leads Diagnosis Line: Nonspecific T wave abnormality now evident in Diagnosis Line: Inferior leads Diagnosis Line: T wave inversion now evident in Anterior leads Diagnosis Line: Confirmed by LEILA DICKEY MD ([id number]) on Diagnosis Line: 10/13/2016 9:55:11 AM INTERPRETING MD: KELI ERICKSON
--- NOTE | ~2016-10-07 | OR ---
Unit #: [id number] #: [id number] Patient: FRANCESCA RAI [id number] [address]. [place], [place] [address] [id number] I MR#: [id number] NAME: FRANCESCA RAI ROOM: [facility] Date of Procedure: 10/09/2016 Admission Date: 10/07/2016 Surgeon: Roberto Richards M.D. : 1960 Attending Physician: Sophy Ruiz M.D. Referring Physician: Primary Care Physician No OPERATIVE REPORT PREOPERATIVE DIAGNOSIS Upper gastrointestinal bleed. PROCEDURES PERFORMED Upper gastrointestinal endoscopy. POSTOPERATIVE DIAGNOSES The patient had a large amount of the residual blood and clot and food residue in the fundus of the stomach; however, no active bleeding was noted. The rest of the examination of the upper gastrointestinal tract was normal. The esophagus, the body and antrum of the stomach, duodenal bulb and second and third part of duodenum were all normal. RECOMMENDATIONS The patient is given a dose of erythromycin intravenously as a prokinetic to empty the stomach. We will monitor his hemoglobin and hematocrit and based upon the latter, consider a repeat examination either later tonight or in the next 24 hours. If the patient's hemoglobin is maintained on transfusion, then he can undergo amputation of the right lower extremity. SEDATION USED MAC. DESCRIPTION OF PROCEDURE Following detailed explanation of the potential risks and complications of an upper endoscopy, namely perforation, bleeding, and complications related to sedation, the patient was brought to GI lab. The patient was laid in the left lateral decubitus position. The procedure was done in intensive care unit at the bedside. Lubricated tip of the Olympus video upper endoscope was passed through bite block into the proximal esophagus under direct vision. The entire esophageal mucosa was examined and appeared normal. Z-line was nicely demarcated, there being no esophagitis or hiatus hernia. The scope was then advanced into the gastric cavity. A large amount of clot with food residue and fresh blood was seen in the gastric cavity. Systematic examination of the stomach was performed after washing the entire mucosa. It was however impossible to completely clear the fundic mucosa because of the large clots that could not be suctioned. The body and antrum of the stomach appeared normal. Pylorus was intubated with visualization of normal duodenal bulb and second and third part of the duodenum. Upon withdrawal and retroflexion, incisura, cardia, and greater curve were examined and no additional findings were noted. The scope was then withdrawn into the distal esophagus. The entire esophageal Unit #: [id number] #: [id number] Patient: FRANCESCA RAI mucosa was examined all the way up to pharynx. No additional findings were noted. The patient tolerated the procedure without any postprocedure complications. Dictated by... Apple Kidd/kathleen TD: 10/11/2016 06:26 JOB #: [id number] OPERATIVE REPORT Page 1 of 1 X Roberto Richards MD X PROCEDURE OPERATIVE NOTE
--- NOTE | ~2016-10-07 | EKG ---
PATIENT: FRANCESCA RAI UNIT #: [id number] Ventricular Rate: 85 BPM Atrial Rate: 85 BPM P-R Interval: 156 ms QRS Duration: 122 ms Q-T Interval: 390 ms QTC Calculation(Bezet): 464 ms P [place]: 60 degrees Calculated R [place]: 21 degrees Calculated T [place]: 95 degrees Diagnosis Line: Sinus rhythm with occasional Premature ventricular Diagnosis Line: complexes Diagnosis Line: Possible Lateral infarct , age undetermined Diagnosis Line: Possible Inferior infarct , age undetermined Diagnosis Line: Abnormal ECG Diagnosis Line: When compared with ECG of 12-OCT-2016 23:11, Diagnosis Line: Significant changes have occurred Diagnosis Line: Confirmed by KELVIN ALEXANDER MD ([id number]) on 10/18/2016 Diagnosis Line: 7:41:39 AM INTERPRETING MD: BENJAMIN ERICKSON
--- NOTE | ~2016-10-07 | EKG ---
PATIENT: FRANCESCA RAI UNIT #: [id number] Ventricular Rate: 120 BPM Atrial Rate: 120 BPM P-R Interval: 168 ms QRS Duration: 88 ms Q-T Interval: 332 ms QTC Calculation(Bezet): 469 ms P [place]: 79 degrees Calculated R [place]: 12 degrees Calculated T [place]: 93 degrees Diagnosis Line: Sinus tachycardia Diagnosis Line: Low voltage QRS Diagnosis Line: Marked ST abnormality, possible anterior Diagnosis Line: subendocardial injury Diagnosis Line: Abnormal ECG Diagnosis Line: When compared with ECG of 09-OCT-2016 15:26, Diagnosis Line: (unconfirmed) Diagnosis Line: Minimal criteria for Inferior infarct are no Diagnosis Line: longer Present Diagnosis Line: Confirmed by YEN HOGUE MD ([id number]) on Diagnosis Line: 10/10/2016 5:06:55 PM INTERPRETING MD: LENNIE ERICKSON
--- NOTE | ~2016-10-07 | FU ---
[facility] DATE: 10/13/16 Patient: FRANCESCA RAI Physician: KATHIA Address: [address] [facility] Room/Bed: [address] [place] [address], Zip: [place] [address] Admit Date: 10/07/16 Date of : [birth year] Height: 6 2 Weight: 156 71 NUTRITION MONITORING/FOLLOW-UP: Reason: Nutrition follow-up 56 y/o male admitted for GIB Anthropometrics: ht: 6'2" wt: 156# (71 kg) BMI 17 -Previous weights per pt 134#-139# Labs: Creat 0.5, Ca++ 7.2, Phos 2.3, Alb 1.6 Meds: Protonix, miralax, percocet, zofran, NaCL I&O's: 1723/850. BM 10/12 Skin: PAMUNKEY- RT leg; scar- upper back. No edema. 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 Pt seen for follow-up. Pt was transferred to [facility] from ICU and is now on a healthy heart diet. RD accounting intern visited pt at bedside. Pt reports that he has a good appetite and has had no n/v/d. He ate 100% of his breakfast this morning and was getting ready to order his lunch for today. [employer] indicates a weight of 156#, but pt reports he is 139# and states that is his normal weight. Pt was agreeable to chocolate Ensure TID in order to increase his protein/kcal intake to promote weight gain. noted severe PCM, however pt does not qualify for malnutrition based on weight history and PO intake. Although pt is underweight he states his current weight is his usual body weight and he appears well-nourished upon physical exam. RD will continue to follow. Dx: 1) Inadequate energy intake r/t diet not yet advanced AEB clear liquids/NPO x 5 days -RESOLVED 2) Underweight r/t unknown etiology AEB BMI 17.3 -ACTIVE Intervention: 1. Healthy heart diet 2. Ensure enlive TID Monitoring, Evaluation and Goals: 1. Tolerance of diet advancement -MET [facility] DATE: 10/13/16 Patient: FRANCESCA RAI Physician: KATHIA Address: [address] [facility] Room/Bed: [address] [place] [address], Zip: [place] [address] Admit Date: 10/07/16 Date of : [birth year] Height: 6 2 Weight: 156 71 2. Gradual weight gain towards a healthy BMI range -NOT MET/IN PROGRESS 3. Lytes WNL -IMPROVED/IN PROGRESS Recommendations: 1. Healthy heart diet + Ensure Enlive chocolate TID. 2. Encourage adequate PO intake. 3. Please obtain updated weight and weigh q 3 days as pt is clinically underweight. RD will f/u per protocol as pt is at mild/moderate nutritional risk. Respectfully, Alyssia Lui, Caser Krystal Barnard RD, LD [facility] cc: client file
--- NOTE | ~2016-10-07 | CO ---
Unit #: [id number] #: [id number] Patient: FRANCESCA RAI [id number] [address] [place], [place] [address] [id number] I MR#: [id number] NAME: FRANCESCA RAI ROOM: CIC3 Age: 56 Sex: M Admission Date: 10/07/2016 : 1960 Attending Physician: Sophy Ruiz M.D. Primary Care Physician: Leonor Primary Care Physician Consultation Date: 10/10/2016 CONSULTATION REPORT REASON FOR CONSULT ICU management. CHIEF COMPLAINT Right lower extremity pain and bloody bowel movement. HISTORY OF PRESENT ILLNESS This is a pleasant 56-year-old male with past medical history significant for significant peripheral vascular disease, depression, anxiety, PTSD, alcohol abuse who presented to the emergency room with bloody bowel movement. Apparently, patient has been battling with severe peripheral vascular disease of his right lower extremity for two years and he had a failed femoral-popliteal bypass in the past. Patient was dealing with his pain with drinking more alcohol and taking razo-iuw-gfafxol ibuprofen. After presentation, patient's hemoglobin and blood pressure dropped significantly mandating transfer to the intensive care unit for blood transfusion and hydration. Patient underwent EGD that showed large clot in the stomach, but there was no clear source of the bleeding. The patient continued to require multiple blood transfusions throughout the night with low hemoglobin and active bloody bowel movement. PAST MEDICAL HISTORY 1. Peripheral vascular disease. 2. Hypertension. 3. Ischemic right foot. 4. Anxiety. 5. Depression. 6. PTSD. SOCIAL HISTORY The patient smokes one pack daily since age 13. He drinks alcohol, one pint of whiskey daily and he smokes marijuana on daily basis. FAMILY HISTORY Coronary artery disease and cancer. HOME MEDICATIONS 1. Citalopram. 2. Zestril. 3. Ibuprofen. PAST SURGICAL HISTORY 1. Femoral-popliteal bypass graft in the past. 2. Right thoracotomy with lung resection of benign mass. Unit #: [id number] #: [id number] Patient: FRACNESCA RAI REVIEW OF SYSTEMS A 12-point review of systems was obtained and was negative except for what was mentioned above. PHYSICAL EXAMINATION GENERAL: The patient in no acute distress, but he is very frustrated. VITAL SIGNS: Blood pressure 109/62, respiratory rate 20, O2 saturation 98%. HEENT: Atraumatic, normocephalic. PERRLA. EOMI. NECK: Supple. No JVD. No lymphadenopathy. CHEST: Clear to auscultation bilaterally. HEART: S1, S2. No murmurs, gallops, or rubs. ABDOMEN: Soft, nontender. Bowel sounds are positive. No hepatosplenomegaly. EXTREMITIES: No edema or cyanosis; however, the right foot is cold with no pulse and with decreased sensation. SKIN: No rashes. CENTRAL NERVOUS SYSTEM: Awake, alert, oriented x3. No focal motor/sensory deficit. DIAGNOSTIC STUDIES LABORATORY: Creatinine 0.5, sodium 134, CO2 of 25. Magnesium 1.5. Hemoglobin 7.2. IMAGING: Tests are reviewed and noted. ASSESSMENT 1. Hemorrhagic shock. 2. Acute on chronic anemia due to blood loss. 3. Lower gastrointestinal bleed. 4. Ischemic right foot. 5. History of hypertension. 6. Coronary artery disease. 7. Hypomagnesemia. 8. Depression. 9. Posttraumatic stress disorder. PLAN 1. Will continue blood transfusion to keep hemoglobin above 7. 2. Monitor electrolyte with massive blood transfusion. 3. Status post esophagogastroduodenoscopy but continues to have active bleeding. I suggest involving interventional radiology for direct embolization. 4. Discontinue bicarb drip and change to normal saline. 5. Monitor urine output very closely. 6. Pain medication. 7. CIWA protocol. 8. Sequential compression devices. 9. Protonix drip. Critical care time spent on this patient was 34 minutes. Dictated by... Kenzie Ohara M.D. Unit #: [id number] #: [id number] Patient: FRANCESCA RAI YULISSA/tosha TD: 10/10/2016 09:25 JOB #: [id number] CONSULTATION REPORT Page 1 of 1 X KENZIE RENEE MD CONSULTATION REPORT
--- NOTE | ~2016-10-07 | OR ---
Unit #: [id number] #: [id number] Patient: FRANCESCA HENDRICKS [id number] [address] [place], [place] [address] [id number] I MR#: [id number] NAME: FRANCESCA HENDRICKS ROOM: [facility] Date of Procedure: 10/10/2016 Admission Date: 10/07/2016 Surgeon: Suhail Stevens M.D. : 1960 Attending Physician: Sophy Ruiz M.D. Referring Physician: Primary Care Physician No OPERATIVE REPORT PREOPERATIVE DIAGNOSIS Ischemic rest pain, right foot. POSTOPERATIVE DIAGNOSIS Ischemic rest pain, right foot. PROCEDURE PERFORMED Right above-knee amputation. ANESTHESIA General endotracheal. ESTIMATED BLOOD LOSS 200 mL. COMPLICATIONS None. INDICATIONS Mr. Francesca Hendricks is a 56-year-old gentleman with a history of peripheral artery disease, who has undergone right leg bypass in the past. His right leg bypass graft is now occluded. An arteriogram showed no good options for additional revascularization of his right leg for limb salvage. He was taken to the operating room to undergo right above-knee amputation to relieve his severe ischemic symptoms. DESCRIPTION OF PROCEDURE The patient was placed in supine position. His right leg was prepped and sterilely draped. A circumferential incision was made along the distal thigh. The incision was made in a fishmouth shape on the medial and lateral aspects. Dissection continued through the subcutaneous tissue and fascia circumferentially with the use of electrocautery. The anterior muscle groups were divided with electrocautery. The superficial femoral artery and vein were doubly clamped, divided, and ligated with 3-0 silk ties. There was also a bypass graft identified adjacent to the superficial femoral artery, which was dissected free proximally and then transected. The femur was dissected free circumferentially and skeletonized with a periosteal elevator. The femur was transected with a power saw. The posterior muscle groups were divided with electrocautery. The specimen was removed and sent to pathology. The sciatic nerve was identified and ligated high with a 2-0 Vicryl suture Unit #: [id number] #: [id number] Patient: FRANCESCA HENDRICKS ligature. Additional bleeding vessels were treated with electrocautery. The end of the femur was made smooth with a bone rasp. The wound was irrigated with 1 L of bacitracin irrigation solution. The anterior and posterior fascial edges were approximated using interrupted 0 Vicryl. The skin was closed using skin yusuf. Sterile dressings were applied. An Frandy wrap was applied. Sponge and needle count were correct. The patient tolerated the procedure well and was taken to the postanesthesia care unit in stable condition. Dictated by... Apple Kim/kathleen TD: 10/10/2016 18:49 JOB #: [id number] OPERATIVE REPORT Page 1 of 1 X Suhail Stevesn MD X PROCEDURE OPERATIVE NOTE
[2016-10-07 16:59] LABS: BASOPHIL% 0.4 % (0-2.5); EOSINOPHIL% 0.3 % (0.0-7.0); HEMOGLOBIN 12.5 gm/dL (13.0-16.0); LYMPHOCYTE# 2.3 X10e3 (1.0-3.5); LYMPHOCYTE% 26.6 % (17.0-45.0); MEAN CELL VOLUME 106.3 FL (83-96); MEAN CORPUSCULAR HGB CONC 32.9 g/dL (30-36); MEAN PLATELET VOLUME 7.1 FL (6.5-11.5); MONOCYTE# 0.8 X10e3 (0-1.0); MONOCYTE% 9.2 % (3.0-12.0); NEUTROPHIL# 5.4 X10e3 (1.5-7.1); NEUTROPHIL% 63.5 % (40-75); PLATELET COUNT 429 X10e3 (140-420); RED BLOOD COUNT 3.58 X10e (3.90-5.60); RED CELL DISTRIBUTION WIDTH 14.5 % (11.0-15.5); WHITE BLOOD COUNT 8.5 X10e3 (4.0-10.5)
[2016-10-07 17:04] LABS: DIFF IND YES
[2016-10-07 17:05] LABS: INR 0.9; PARTIAL THROMBOPLASTIN TIME 27.4 SECONDS (23.5-31.3)
[2016-10-07 17:07] LABS: POC - CKMB 3.1 ng/mL (0.0-7.9); POC - TROPONIN <0.05 ng/mL (<=0.05)
[2016-10-07 17:14] LABS: ALBUMIN SERUM 3.5 g/dL (3.5-5.0); BILIRUBIN, DIRECT 0.1 mg/dL (0.0-0.2); BILIRUBIN,TOTAL 1.1 mg/dL (0.2-2.0); BUN/CREATININE RATIO 28.33; CALCIUM SERUM 8.8 mg/dL (8.4-10.2); CREATININE SERUM 0.6 mg/dL (0.6-1.4); GLOM FILT RATE Estimated 110.9 mL/min (>60); PROTEIN TOTAL SERUM 6.9 g/dL (6.0-8.3)
[2016-10-07 17:15] LABS: PLATELET ESTIMATE INCREASED (NORMAL)
[2016-10-07] MEDS ORDERED: CITALOPRAM HBR40 M1 PO (19:23)
[2016-10-07] MEDS ORDERED: ZESTRIL40 MG PO (19:23)
[2016-10-07 19:44] LABS: URINE SOURCE CLEAN CATCH
[2016-10-07 19:51] LABS: URINE APPEARANCE CLEAR; URINE BILIRUBIN NEG (NEG); URINE BLOOD NEG (NEG); URINE COLOR DK YELLOW; URINE GLUCOSE NEG (NEG); URINE KETONE NEG (NEG); URINE LEUKOCYTE ESTERASE NEG (NEG); URINE NITRATE NEG (NEG); URINE PH 5.5 (5-8); URINE PROTEIN NEG (NEG); URINE SPECIFIC GRAVITY 1.028 (1.003-1.035)
[2016-10-07 20:08] LABS: CULTURE INDICATED? NO
[2016-10-07 23:40] LABS: THYROID STIMULATING HORMONE 1.45 uIU/ml (0.34-5.60)
[2016-10-07 23:47] LABS: FREE THYROXIN (T4) 0.94 ng/dL (0.58-1.64)
[2016-10-08 01:42] LABS: BASOPHIL# 0.1 X10e3 (0-0.3); BASOPHIL% 1.2 % (0-2.5); EOSINOPHIL% 0.5 % (0.0-7.0); HEMATOCRIT 30.2 % (38.0-50.0); LYMPHOCYTE# 2.4 X10e3 (1.0-3.5); MEAN CELL VOLUME 105.8 FL (83-96); MEAN CORPUSCULAR HEMOGLOBIN 35.1 PG (28-34); MEAN CORPUSCULAR HGB CONC 33.2 g/dL (30-36); MEAN PLATELET VOLUME 6.7 FL (6.5-11.5); MONOCYTE# 0.7 X10e3 (0-1.0); MONOCYTE% 9.6 % (3.0-12.0); NEUTROPHIL# 4.1 X10e3 (1.5-7.1); NEUTROPHIL% 55.7 % (40-75); PLATELET COUNT 334 X10e3 (140-420); RED BLOOD COUNT 2.86 X10e (3.90-5.60); RED CELL DISTRIBUTION WIDTH 14.5 % (11.0-15.5); WHITE BLOOD COUNT 7.3 X10e3 (4.0-10.5)
[2016-10-08 01:43] LABS: DIFF IND NO
[2016-10-08 01:50] LABS: ALBUMIN SERUM 2.8 g/dL (3.5-5.0); BILIRUBIN,TOTAL 0.7 mg/dL (0.2-2.0); CREATININE SERUM 0.6 mg/dL (0.6-1.4); GLOM FILT RATE Estimated 110.9 mL/min (>60); POTASSIUM 4.1 mmol/L (3.5-5.1); PROTEIN TOTAL SERUM 5.7 g/dL (6.0-8.3)
[2016-10-09 06:46] LABS: HEMATOCRIT 25.6 % (38.0-50.0); HEMOGLOBIN 8.3 gm/dL (13.0-16.0); MEAN CELL VOLUME 107.5 FL (83-96); MEAN CORPUSCULAR HEMOGLOBIN 34.9 PG (28-34); MEAN CORPUSCULAR HGB CONC 32.4 g/dL (30-36); MEAN PLATELET VOLUME 7.3 FL (6.5-11.5); RED BLOOD COUNT 2.38 X10e (3.90-5.60); RED CELL DISTRIBUTION WIDTH 14.1 % (11.0-15.5); WHITE BLOOD COUNT 6.1 X10e3 (4.0-10.5)
[2016-10-09 07:26] LABS: BUN/CREATININE RATIO 26.66; CALCIUM SERUM 8.4 mg/dL (8.4-10.2); CREATININE SERUM 0.6 mg/dL (0.6-1.4); GLOM FILT RATE Estimated 110.9 mL/min (>60); MAGNESIUM 1.7 mg/dL (1.6-3.0); POTASSIUM 4.7 mmol/L (3.5-5.1)
[2016-10-09 15:17] LABS: ARTERIAL BLD GAS O2 SATURATION 98.7 % (90.0-100.0); ARTERIAL BLOOD GAS CARBOXY HB 0.7 %sat (0.0-9.0); ARTERIAL BLOOD GAS HCO3 13.5 mmol/L; ARTERIAL BLOOD GAS PCO2 32.9 mmHg (35.0-45.0); ARTERIAL BLOOD GAS pH 7.222 (7.350-7.450)
[2016-10-09 15:18] LABS: ARTERIAL BLOOD GAS ALLEN TEST NORMAL; ARTERIAL BLOOD GAS ART SITE RIGHT BRACHIAL; ARTERIAL BLOOD GAS DELIVERY NON REBREATHER MASK; ARTERIAL DRAW? YES
[2016-10-09 16:34] LABS: HEMATOCRIT 18.5 % (38.0-50.0)
[2016-10-09 16:37] LABS: HEMOGLOBIN 5.9 gm/dL (13.0-16.0)
[2016-10-09 16:38] LABS: ALBUMIN SERUM 2.1 g/dL (3.5-5.0); BILIRUBIN,TOTAL 0.6 mg/dL (0.2-2.0); BUN/CREATININE RATIO 22.85; CALCIUM SERUM 7.3 mg/dL (8.4-10.2); CREATININE SERUM 0.7 mg/dL (0.6-1.4); GLOM FILT RATE Estimated 104.1 mL/min (>60); POTASSIUM 5.2 mmol/L (3.5-5.1); PROTEIN TOTAL SERUM 4.2 g/dL (6.0-8.3)
[2016-10-09 22:27] LABS: HEMATOCRIT 14.7 % (38.0-50.0)
[2016-10-09 22:32] LABS: HEMOGLOBIN 4.9 gm/dL (13.0-16.0)
[2016-10-09 22:46] LABS: BUN/CREATININE RATIO 21.42; CALCIUM SERUM 6.5 mg/dL (8.4-10.2); CREATININE SERUM 0.7 mg/dL (0.6-1.4); GLOM FILT RATE Estimated 104.1 mL/min (>60); POTASSIUM 4.6 mmol/L (3.5-5.1)
[2016-10-10 04:32] LABS: BASOPHIL% 0.2 % (0-2.5); LYMPHOCYTE# 1.6 X10e3 (1.0-3.5); LYMPHOCYTE% 16.4 % (17.0-45.0); MEAN CORPUSCULAR HEMOGLOBIN 30.9 PG (28-34); MEAN CORPUSCULAR HGB CONC 34.3 g/dL (30-36); MEAN PLATELET VOLUME 7.4 FL (6.5-11.5); MONOCYTE# 0.9 X10e3 (0-1.0); MONOCYTE% 8.6 % (3.0-12.0); NEUTROPHIL# 7.5 X10e3 (1.5-7.1); NEUTROPHIL% 74.8 % (40-75); PLATELET COUNT 180 X10e3 (140-420); RED BLOOD COUNT 2.33 X10e (3.90-5.60); RED CELL DISTRIBUTION WIDTH 20.6 % (11.0-15.5)
[2016-10-10 04:33] LABS: HEMOGLOBIN 7.2 gm/dL (13.0-16.0); MEAN CELL VOLUME 90.1 FL (83-96)
[2016-10-10 04:34] LABS: DIFF IND NO
[2016-10-10 04:48] LABS: ALBUMIN SERUM 2.3 g/dL (3.5-5.0); BILIRUBIN,TOTAL 1.4 mg/dL (0.2-2.0); CALCIUM SERUM 6.7 mg/dL (8.4-10.2); CREATININE SERUM 0.5 mg/dL (0.6-1.4); GLOM FILT RATE Estimated 119.5 mL/min (>60); MAGNESIUM 1.5 mg/dL (1.6-3.0); PHOSPHOROUS 3.6 mg/dL (2.5-4.6); POTASSIUM 4.5 mmol/L (3.5-5.1)
[2016-10-10 09:14] LABS: BASOPHIL% 0.2 % (0-2.5); HEMATOCRIT 22.6 % (38.0-50.0); HEMOGLOBIN 7.8 gm/dL (13.0-16.0); LYMPHOCYTE# 1.5 X10e3 (1.0-3.5); LYMPHOCYTE% 18.3 % (17.0-45.0); MEAN CELL VOLUME 89.2 FL (83-96); MEAN CORPUSCULAR HEMOGLOBIN 30.8 PG (28-34); MEAN CORPUSCULAR HGB CONC 34.5 g/dL (30-36); MEAN PLATELET VOLUME 7.5 FL (6.5-11.5); MONOCYTE# 0.8 X10e3 (0-1.0); NEUTROPHIL% 71.5 % (40-75); PLATELET COUNT 164 X10e3 (140-420); RED BLOOD COUNT 2.54 X10e (3.90-5.60); RED CELL DISTRIBUTION WIDTH 19.4 % (11.0-15.5); WHITE BLOOD COUNT 8.4 X10e3 (4.0-10.5)
[2016-10-10 09:26] LABS: DIFF IND YES
[2016-10-10 09:30] LABS: PARTIAL THROMBOPLASTIN TIME 32.2 SECONDS (23.5-31.3); PROTHROMBIN TIME (PATIENT) 11.1 SECONDS (10.0-11.7)
[2016-10-10 10:55] LABS: PLATELET ESTIMATE NORMAL (NORMAL)
[2016-10-10 10:56] LABS: ANISOCYTOSIS SL
[2016-10-10 10:57] LABS: MICROCYTOSIS MOD; POIKILOCYTOSIS SL
[2016-10-10 12:01] LABS: HEMATOCRIT 21.9 % (38.0-50.0); HEMOGLOBIN 7.6 gm/dL (13.0-16.0); MEAN CELL VOLUME 88.4 FL (83-96); MEAN CORPUSCULAR HEMOGLOBIN 30.8 PG (28-34); MEAN CORPUSCULAR HGB CONC 34.8 g/dL (30-36); MEAN PLATELET VOLUME 7.6 FL (6.5-11.5); RED BLOOD COUNT 2.47 X10e (3.90-5.60); RED CELL DISTRIBUTION WIDTH 19.7 % (11.0-15.5); WHITE BLOOD COUNT 8.2 X10e3 (4.0-10.5)
[2016-10-10 17:06] LABS: BASOPHIL% 0.3 % (0-2.5); EOSINOPHIL% 0.2 % (0.0-7.0); HEMATOCRIT 21.1 % (38.0-50.0); HEMOGLOBIN 7.2 gm/dL (13.0-16.0); LYMPHOCYTE# 1.8 X10e3 (1.0-3.5); LYMPHOCYTE% 20.5 % (17.0-45.0); MEAN CORPUSCULAR HEMOGLOBIN 30.6 PG (28-34); MEAN CORPUSCULAR HGB CONC 34.4 g/dL (30-36); MEAN PLATELET VOLUME 7.5 FL (6.5-11.5); MONOCYTE# 0.7 X10e3 (0-1.0); MONOCYTE% 7.8 % (3.0-12.0); NEUTROPHIL# 6.3 X10e3 (1.5-7.1); NEUTROPHIL% 71.2 % (40-75); PLATELET COUNT 166 X10e3 (140-420); RED BLOOD COUNT 2.37 X10e (3.90-5.60); RED CELL DISTRIBUTION WIDTH 20.1 % (11.0-15.5); WHITE BLOOD COUNT 8.8 X10e3 (4.0-10.5)
[2016-10-10 17:08] LABS: DIFF IND NO
[2016-10-11 06:49] LABS: CALCIUM SERUM 6.9 mg/dL (8.4-10.2); CREATININE SERUM 0.5 mg/dL (0.6-1.4); GLOM FILT RATE Estimated 119.5 mL/min (>60); MAGNESIUM 1.7 mg/dL (1.6-3.0); PHOSPHOROUS 2.3 mg/dL (2.5-4.6); POTASSIUM 3.9 mmol/L (3.5-5.1)
[2016-10-11 06:50] LABS: BASOPHIL% 0.2 % (0-2.5); EOSINOPHIL% 0.2 % (0.0-7.0); LYMPHOCYTE# 1.6 X10e3 (1.0-3.5); LYMPHOCYTE% 16.4 % (17.0-45.0); MEAN CELL VOLUME 89.7 FL (83-96); MEAN CORPUSCULAR HEMOGLOBIN 30.1 PG (28-34); MEAN CORPUSCULAR HGB CONC 33.6 g/dL (30-36); MEAN PLATELET VOLUME 7.7 FL (6.5-11.5); MONOCYTE# 0.9 X10e3 (0-1.0); MONOCYTE% 9.4 % (3.0-12.0); NEUTROPHIL# 7.2 X10e3 (1.5-7.1); NEUTROPHIL% 73.8 % (40-75); PLATELET COUNT 181 X10e3 (140-420); RED BLOOD COUNT 2.22 X10e (3.90-5.60); RED CELL DISTRIBUTION WIDTH 19.7 % (11.0-15.5); WHITE BLOOD COUNT 9.7 X10e3 (4.0-10.5)
[2016-10-11 06:58] LABS: DIFF IND NO; HEMOGLOBIN 6.7 gm/dL (13.0-16.0)
[2016-10-11 15:16] LABS: HEMATOCRIT 22.9 % (38.0-50.0); HEMOGLOBIN 8.1 gm/dL (13.0-16.0)
[2016-10-12 00:27] LABS: BASOPHIL% 0.4 % (0-2.5); DIFF IND NO; EOSINOPHIL% 0.1 % (0.0-7.0); HEMATOCRIT 26.3 % (38.0-50.0); HEMOGLOBIN 8.8 gm/dL (13.0-16.0); LYMPHOCYTE# 1.9 X10e3 (1.0-3.5); LYMPHOCYTE% 15.4 % (17.0-45.0); MEAN CELL VOLUME 86.1 FL (83-96); MEAN CORPUSCULAR HEMOGLOBIN 28.8 PG (28-34); MEAN CORPUSCULAR HGB CONC 33.5 g/dL (30-36); MEAN PLATELET VOLUME 7.6 FL (6.5-11.5); MONOCYTE% 8.1 % (3.0-12.0); NEUTROPHIL# 9.3 X10e3 (1.5-7.1); PLATELET COUNT 159 X10e3 (140-420); RED BLOOD COUNT 3.05 X10e (3.90-5.60); RED CELL DISTRIBUTION WIDTH 18.9 % (11.0-15.5); WHITE BLOOD COUNT 12.2 X10e3 (4.0-10.5)
[2016-10-12 04:34] LABS: BASOPHIL% 0.2 % (0-2.5); EOSINOPHIL% 0.2 % (0.0-7.0); HEMATOCRIT 26.4 % (38.0-50.0); HEMOGLOBIN 8.9 gm/dL (13.0-16.0); LYMPHOCYTE# 1.1 X10e3 (1.0-3.5); LYMPHOCYTE% 9.8 % (17.0-45.0); MEAN CELL VOLUME 86.6 FL (83-96); MEAN CORPUSCULAR HEMOGLOBIN 29.1 PG (28-34); MEAN CORPUSCULAR HGB CONC 33.5 g/dL (30-36); MEAN PLATELET VOLUME 7.8 FL (6.5-11.5); MONOCYTE# 1.1 X10e3 (0-1.0); NEUTROPHIL# 9.1 X10e3 (1.5-7.1); NEUTROPHIL% 79.8 % (40-75); PLATELET COUNT 149 X10e3 (140-420); RED BLOOD COUNT 3.05 X10e (3.90-5.60); RED CELL DISTRIBUTION WIDTH 19.1 % (11.0-15.5); WHITE BLOOD COUNT 11.4 X10e3 (4.0-10.5)
[2016-10-12 04:40] LABS: DIFF IND NO
[2016-10-12 05:14] LABS: CALCIUM SERUM 6.8 mg/dL (8.4-10.2); CREATININE SERUM 0.4 mg/dL (0.6-1.4); POTASSIUM 3.6 mmol/L (3.5-5.1)
[2016-10-12 22:35] LABS: BASOPHIL% 0.1 % (0-2.5); EOSINOPHIL% 0.1 % (0.0-7.0); HEMATOCRIT 27.1 % (38.0-50.0); HEMOGLOBIN 8.9 gm/dL (13.0-16.0); LYMPHOCYTE# 0.7 X10e3 (1.0-3.5); LYMPHOCYTE% 5.4 % (17.0-45.0); MEAN CELL VOLUME 87.3 FL (83-96); MEAN CORPUSCULAR HEMOGLOBIN 28.7 PG (28-34); MEAN CORPUSCULAR HGB CONC 32.8 g/dL (30-36); MEAN PLATELET VOLUME 7.4 FL (6.5-11.5); MONOCYTE# 1.3 X10e3 (0-1.0); NEUTROPHIL# 10.9 X10e3 (1.5-7.1); NEUTROPHIL% 84.4 % (40-75); PLATELET COUNT 172 X10e3 (140-420); RED CELL DISTRIBUTION WIDTH 19.4 % (11.0-15.5); WHITE BLOOD COUNT 12.9 X10e3 (4.0-10.5)
[2016-10-12 22:37] LABS: DIFF IND NO
[2016-10-13 05:31] LABS: BASOPHIL% 0.1 % (0-2.5); HEMATOCRIT 23.7 % (38.0-50.0); HEMOGLOBIN 8.1 gm/dL (13.0-16.0); LYMPHOCYTE# 0.8 X10e3 (1.0-3.5); LYMPHOCYTE% 6.7 % (17.0-45.0); MEAN CELL VOLUME 87.8 FL (83-96); MEAN CORPUSCULAR HEMOGLOBIN 29.8 PG (28-34); MEAN PLATELET VOLUME 7.9 FL (6.5-11.5); MONOCYTE# 1.1 X10e3 (0-1.0); MONOCYTE% 8.8 % (3.0-12.0); NEUTROPHIL# 10.1 X10e3 (1.5-7.1); NEUTROPHIL% 84.4 % (40-75); PLATELET COUNT 179 X10e3 (140-420)
[2016-10-13 05:42] LABS: DIFF IND NO
[2016-10-13 06:02] LABS: ALBUMIN SERUM 1.6 g/dL (3.5-5.0); BILIRUBIN,TOTAL 0.9 mg/dL (0.2-2.0); CALCIUM SERUM 7.2 mg/dL (8.4-10.2); CREATININE SERUM 0.5 mg/dL (0.6-1.4); GLOM FILT RATE Estimated 119.5 mL/min (>60); POTASSIUM 3.5 mmol/L (3.5-5.1); PROTEIN TOTAL SERUM 3.9 g/dL (6.0-8.3)
[2016-10-14 07:18] LABS: HEMATOCRIT 23.1 % (38.0-50.0); HEMOGLOBIN 7.7 gm/dL (13.0-16.0); MEAN CELL VOLUME 89.5 FL (83-96); MEAN CORPUSCULAR HEMOGLOBIN 29.9 PG (28-34); MEAN CORPUSCULAR HGB CONC 33.4 g/dL (30-36); MEAN PLATELET VOLUME 7.9 FL (6.5-11.5); RED BLOOD COUNT 2.58 X10e (3.90-5.60); RED CELL DISTRIBUTION WIDTH 19.9 % (11.0-15.5); WHITE BLOOD COUNT 9.8 X10e3 (4.0-10.5)
[2016-10-14 07:56] LABS: BUN/CREATININE RATIO 22.5; CALCIUM SERUM 7.3 mg/dL (8.4-10.2); CREATININE SERUM 0.4 mg/dL (0.6-1.4); POTASSIUM 3.3 mmol/L (3.5-5.1)
[2016-10-14 21:15] LABS: HEMOGLOBIN 9.1 gm/dL (13.0-16.0)
[2016-10-15 06:27] LABS: HEMATOCRIT 25.6 % (38.0-50.0); HEMOGLOBIN 8.7 gm/dL (13.0-16.0); MEAN CELL VOLUME 87.8 FL (83-96); MEAN CORPUSCULAR HEMOGLOBIN 29.8 PG (28-34); MEAN PLATELET VOLUME 7.8 FL (6.5-11.5); RED BLOOD COUNT 2.92 X10e (3.90-5.60); RED CELL DISTRIBUTION WIDTH 19.1 % (11.0-15.5); WHITE BLOOD COUNT 8.6 X10e3 (4.0-10.5)
[2016-10-15 07:58] LABS: ALBUMIN SERUM 1.7 g/dL (3.5-5.0); BILIRUBIN,TOTAL 0.8 mg/dL (0.2-2.0); CALCIUM SERUM 7.5 mg/dL (8.4-10.2); CREATININE SERUM 0.3 mg/dL (0.6-1.4); GLOM FILT RATE Estimated 147.4 mL/min (>60); MAGNESIUM 1.7 mg/dL (1.6-3.0); POTASSIUM 3.4 mmol/L (3.5-5.1); PROTEIN TOTAL SERUM 4.5 g/dL (6.0-8.3)
[2016-10-16 06:40] LABS: HEMATOCRIT 26.1 % (38.0-50.0); HEMOGLOBIN 8.8 gm/dL (13.0-16.0); MEAN CELL VOLUME 88.9 FL (83-96); MEAN CORPUSCULAR HGB CONC 33.8 g/dL (30-36); MEAN PLATELET VOLUME 7.8 FL (6.5-11.5); RED BLOOD COUNT 2.93 X10e (3.90-5.60); RED CELL DISTRIBUTION WIDTH 18.9 % (11.0-15.5); WHITE BLOOD COUNT 8.7 X10e3 (4.0-10.5)
[2016-10-16 07:15] LABS: CALCIUM SERUM 7.6 mg/dL (8.4-10.2); CREATININE SERUM 0.5 mg/dL (0.6-1.4); GLOM FILT RATE Estimated 119.5 mL/min (>60); MAGNESIUM 1.9 mg/dL (1.6-3.0); POTASSIUM 3.9 mmol/L (3.5-5.1)
[2016-10-16] MEDS ORDERED: VISTARIL PO (12:43)
[2016-10-16] MEDS ORDERED: TOPROL XL PO (12:44)
[2016-10-16] MEDS ORDERED: PROTONIX PO (12:44)
[2016-10-16] MEDS ORDERED: PERCOCET10 PO (12:45)
[2016-12-07] MEDS ORDERED: COMBIVENT U/D3 M2 INH (04:25)
[2016-12-07] MEDS ORDERED: PREDNISONE PO (04:28)
[2016-12-07] MEDS ORDERED: DESYREL50 MG PO (04:30)
[2016-12-07] MEDS ORDERED: BUMEX1 MG PO (04:31)
[2016-12-07] MEDS ORDERED: MULTI-VITAMIN1 EAC1 PO (04:33)
[2016-12-07] MEDS ORDERED: K-TAB ER20 MEQ PO (04:36)
[2016-12-07] MEDS ORDERED: ASCORBIC ACID500 M3 PO (04:36)
== END 2016-10-16 13:46 | disposition home health service (06) | DRG 981 ==
LOC: CED 15:54 → CEDOF 20:15 → C3A PCU 20:15 → CED 20:26 → CEDOF 20:26 → C3A PCU 10-08 07:59 → CEDOF 10-08 07:59 → C3A PCU 10-09 09:30 → CICCU3 10-09 15:26 → C5B 10-12 11:09
PROVIDERS: Emergency Medicine; Internal Medicine; Internal Medicine Endocrinology, Diabetes & Metabolism; Internal Medicine Gastroenterology; Internal Medicine Pulmonary Disease; Nurse Practitioner; Surgery Vascular Surgery
PROC: 05H533Z Insertion of Infusion Device into Right Subclavian Vein, Percutaneous Approach (ICD-10-PCS; 2016-10-08)
PROC: B546ZZA Ultrasonography of Right Subclavian Vein, Guidance (ICD-10-PCS; 2016-10-08)
PROC: 0DJ08ZZ Inspection of Upper Intestinal Tract, Via Natural or Artificial Opening Endoscopic (ICD-10-PCS; 2016-10-09)
PROC: B410YZZ Fluoroscopy of Abdominal Aorta using Other Contrast (ICD-10-PCS; 2016-10-09)
PROC: B41CYZZ Fluoroscopy of Pelvic Arteries using Other Contrast (ICD-10-PCS; 2016-10-09)
PROC: B41FYZZ Fluoroscopy of Right Lower Extremity Arteries using Other Contrast (ICD-10-PCS; 2016-10-09)
PROC: 05HM33Z Insertion of Infusion Device into Right Internal Jugular Vein, Percutaneous Approach (ICD-10-PCS; 2016-10-09)
PROC: B543ZZA Ultrasonography of Right Jugular Veins, Guidance (ICD-10-PCS; 2016-10-09)
PROC: 30233N1 Transfusion of Nonautologous Red Blood Cells into Peripheral Vein, Percutaneous Approach (ICD-10-PCS; 2016-10-09)
PROC: 0Y6F0ZZ Detachment at Right Knee Region, Open Approach (ICD-10-PCS; principal; 2016-10-10 12:00)
PROC: 04V33DZ Restriction of Hepatic Artery with Intraluminal Device, Percutaneous Approach (ICD-10-PCS; 2016-10-11 15:35)
PROC: 0W3P8ZZ Control Bleeding in Gastrointestinal Tract, Via Natural or Artificial Opening Endoscopic (ICD-10-PCS; 2016-10-11 15:35)
PROC: B24BYZZ Ultrasonography of Heart with Aorta using Other Contrast (ICD-10-PCS; 2016-10-13)
DX: K26.4 Chronic or unspecified duodenal ulcer with hemorrhage (principal); T81.19XA Other postprocedural shock, initial encounter; J96.01 Acute respiratory failure with hypoxia; E43 Unspecified severe protein-calorie malnutrition; G92 Toxic encephalopathy; F10.231 Alcohol dependence with withdrawal delirium; F33.2 Major depressive disorder, recurrent severe without psychotic features; R65.10 Systemic inflammatory response syndrome (SIRS) of non-infectious origin without acute organ dysfunction; E87.2 Acidosis; D62 Acute posthemorrhagic anemia; E44.0 Moderate protein-calorie malnutrition; E87.1 Hypo-osmolality and hyponatremia; Z68.1 Body mass index [BMI] 19.9 or less, adult; I48.0 Paroxysmal atrial fibrillation; E83.42 Hypomagnesemia; I70.221 Atherosclerosis of native arteries of extremities with rest pain, right leg; F41.9 Anxiety disorder, unspecified; F17.210 Nicotine dependence, cigarettes, uncomplicated; I10 Essential (primary) hypertension; J44.9 Chronic obstructive pulmonary disease, unspecified; F43.12 Post-traumatic stress disorder, chronic; I25.10 Atherosclerotic heart disease of native coronary artery without angina pectoris; E87.6 Hypokalemia
CPT/HCPCS: 36415; 36430; 36600; 71010; 74176; 75625; 75710; 80048; 80053; 80076; 81003; 82330; 82553; 82607; 82803; 82947; 83690; 83735; 84100; 84132; 84439; 84443; 84484; 85014; 85018; 85025; 85027; 85610; 85730; 86592; 86850; 86900; 86901; 86923; 88307; 93005; 93306; 94760; 94761; 96361; 96374; 96375; 97110; 97116; 97162; 97530; 97535; 99285; C1725; C1760; C1887; C1894; C9113; G0480; G8978-GP; G8979-GP; J0171; J0610; J0690; J1170; J1364; J1630; J1644; J1940; J2060; J2250; J2270; J2370; J2405; J3010; J3370; J3411; J3475; J7042; P9016; P9045; Q9967

== ENCOUNTER 2016-10-27 09:08 | Inpatient (IN) | payer MEDICAID ==
[~2016-10-27] VITALS: Ht 182.9 cm; Wt 49.5 kg
--- NOTE | ~2016-10-27 | FU ---
[facility] Nutrition Therapy DATE: 11/02/16 Patient: FRANCESCA RAI Physician: ABIDA Address: [facility] Room/Bed: [address] [place] [address], Zip: [place] [address] Admit Date: 10/27/16 Date of : 56 Height: 6 0 Weight: 109 49.5 NUTRITION MONITORING/FOLLOW-UP: Reason: PT SEEN FOR FOLLOW-UP DX: SOA, SAMAN Anthropometrics: 6'2", WT: 111# (50.4 KG), BMI: 14.3 -ADMIT WEIGHT: 121# Labs: BUN: 8, ALB: 2.1, NA+:133 Meds: FUROSEMIDE, COLACE, SPIRONOLACTONE, PROTONIX, LAXATIVE, NACL I&O's: 2734/1999 Skin: PREVIOUSLY NOTED; SCROTAL FUNGAL IMPACTION EDEMA: LLE CELLULITIS Estimated Nutrition Needs: INCREASED NEEDS 2' PT UNDERWEIGHT, CURRENT CONDITION, PMH, WEIGHT LOSS Assessment: CHART REVIEWED AND EVENTS NOTED. PT SEEN FOR FOLLOW-UP. PT REPORTS GOOD PO INTAKE AND APPETITE, NO C/O N/V/D. PT REPORTS DRINKING ENSURE SHAKE DAILY. PT CONTINUES TO BE ON REGULAR DIET + [address]. THIS [address] ENCOURAGED ADEQUATE KCAL AND PROTEIN INTAKE, PT AGREED. PT REPORTED NO DIET QUESTIONS AT THIS TIME. RD TO REMAIN AVAILABLE. Dx: 1. UNDERWEIGHT R/T UNKNOWN ETIOLOG, RECENT (R) AKA AEB BMI OF 15.5, 64%IBW, WEIGHT LOSS NOTED.-ACTIVE 2. INCREASED PROTEIN NEEDS R/T SKIN BREAKDOWN AEB STAGE 2 PRESSURE ULCER COCCYX + (R)AKA.-ACTIVE Intervention: 1. REGULAR DIET + 1800 ML FLUID RESTRICTION 2. ENSURE SHAKE DAILY Monitoring, Evaluation and Goals: 1. ORAL INTAKE; CONSUME/TOLERATE >50% OF MEALS AND SUPPLEMENTS-MET 2. WEIGHTS; PROMOTE GRADUAL WEIGHT GAIN TOWARDS A HEALTHY BMI; PREVENT WEIGHT LOSS-NOT MET/IN PROGRESS 3. LABS; WNL-IN PROGRESS 4. SKIN; PROMOTE SKIN HEALING-IN PROGRESS [facility] Nutrition Therapy DATE: 11/02/16 Patient: FRANCESCA RAI Physician: ABIDA Address: [facility] Room/Bed: [address] [place] [address], Zip: [place] [address] Admit Date: 10/27/16 Date of : 56 Height: 6 0 Weight: 109 49.5 MONITOR: -PO INTAKE/APPETITE -WEIGHTS -SUPPLEMENT INTAKE Recommendations: 1. CONTINUE TO ENCOURAGE ADEQUATE PO AND SUPPLEMENT INTAKE 2. CONSIDER ADDING MVI W/MINERAL DAILY TO PT'S CURRENT MEDICATION REGIMEN TO PROMOTE SKIN HEALING 3. CONTINUE TO WEIGH q 3 DAYS FOR MONITORING PURPOSES RD WILL F/U PER PROTOCOL PT IS MILDLY COMPROMISED Respectfully, RACHEL ZIEGLER MS, RD, LD Food and Nutritional Services [facility] cc: client file
--- NOTE | ~2016-10-27 | CR151 ---
[facility] A Service of [facility] & [facility] RADIOLOGY TEXT RESULTS PATIENT: FRANCESCA RAI [facility] 560-01 : [birth year] UNIT #: [id number] AGE: [address]: Paris Mccord MD SEX: M ORDER DR: [id number] [facility] [address]. [place], [place] [address] [id number] I MR#: [id number] #: [id number] NAME: FRANCESCA RAI : 1960 SEX: M STUDY DATE/TIME: 10/31/2016 10:42 [facility] ROOM: [facility] STUDY DESCRIPTION: CR Hip Min 2 Views Rt Attending Physician: Paris Mccord M.D. Ordering Physician: Paris Mccord M.D. Primary Care Physician: Primary Care Physician No MEDICAL IMAGING REPORT This report is preliminary unless electronic signature is present EXAM Right hip 2 views, 10/31/2016 HISTORY Right hip pain and swelling for 1 week. No known injury. FINDINGS Two views of the right hip demonstrate no fracture. There is degenerative change with mild axial narrowing of the hip joints bilaterally. The bones are normally mineralized. Atherosclerotic calcification is seen in the inguinal regions bilaterally. IMPRESSION Mild degenerative change right hip. No acute abnormality. Dictated by... Keanu Olmos M.D. THIS IS AN ELECTRONICALLY VERIFIED REPORT Keanu Olmos M.D. at 11/01/2016 7:27 AM AG/reena TD: 10/31/2016 14:06 JOB #: [id number] MEDICAL IMAGING REPORT Page 1 of 1 COPY
--- NOTE | ~2016-10-27 | A ---
[facility] Nutrition Therapy DATE: 10/28/16 Patient: FRANCESCA RAI Physician: ABIDA Address: [address] [place] [address] Room/Bed: [address] [place] [address], Zip: [place] [address] Admit Date: 10/27/16 Date of : 56 Height: 6 0 Weight: 120 54.8 NUTRITIONAL ASSESSMENT: REASON: LOW BMI PT IS 56 Y.O. MALE ADMITTED FOR SOA, PNA PMH: PAD S/P (R) AKA ON 10/10/16 (HX OF ISCHEMIC FOOT), ETOH ABUSE, SMOKER, PTSD, HLD, CAD, HTN, AFIB Anthropometrics: 6'2", WT: 121# (55 KG), BMI: 15.5, 64%IBW Labs: CA+:7.5, ALB: 1.9, PHOS: 2.3 (10/11/16), NA+:134 Meds: NACL, FUROSEMIDE, COLACE, PROTONIX, LAXATIVE, SPIRONLACTONE I/O & Bowel function: 1110/1827, 2 BMs NOTED Skin Integrity: STAGE 2 PRESSURE ULCER COCCYX; SCAR UPPER BACK EDEMA: LLE 1+ EDEMA Estimated Nutrition Needs: INCREASED NEEDS 2' PT UNDERWEIGHT, CURRENT CONDITION, PMH, WEIGHT LOSS Assessment: CHART REVIEWED AND EVENTS NOTED. PT SEEN FOR UNDERWEIGHT STATUS. PT REPORTS USUAL GOOD PO INTAKE AND APPETITE,NO C/O N/V/D (PT REPORTS CONSUMING 2 MEALS + SNACKS DAILY). PT REPORTS UBW IS ~139-140#, WEIGHT LOSS NOTED. PER RD ASSESSMENT SEPTEMBER 2016, PT'S WEIGHT WAS 134#. PT IS S/P (R) AKA, CONTRIBUTING TO HIS WEIGHT LOSS. THIS RD ENCOURAGED ADEQUATE KCAL AND PROTEIN INTAKE, PT AGREED TO ENSURE SHAKE W/LUNCH MEAL. PT ON REGULAR DIET + 1800 ML FLUID RESTRICTION. PT REPORTED NO DIET QUESTIONS AT THIS TIME. RD TO FOLLOW. SEE RECOMMENDATIONS BELOW. Dx: UNDERWEIGHT R/T UNKNOWN ETIOLOGY, RECENT (R) AKA AEB BMI OF 15.5, 64%IBW, WEIGHT LOSS NOTED. 2. INCREASED PROTEIN NEEDS R/T SKIN BREAKDOWN AEB STAGE 2 PRESSURE ULCER COCCYX + (R) AKA. Intervention: 1. REGULAR DIET + 1800 ML FLUID RESTRICTION 2. ENSURE SHAKE DAILY Monitoring, Evaluation and Goals: 1. ORAL INTAKE; CONSUME/TOLERATE >50% OF MEALS AND SUPPLEMENTS 2. WEIGHTS; PROMOTE GRADUAL WEIGHT GAIN TOWARDS A HEALTHY BMI; PREVENT WEIGHT LOSS 3. LABS; WNL 4. SKIN; PROMOTE SKIN HEALING [facility] Nutrition Therapy DATE: 10/28/16 Patient: FRANCESCA LAMBJIGNA Physician: ABIDA Address: [address] [place] [address] Room/Bed: [address] [place] [address], Zip: [place] [address] Admit Date: 10/27/16 Date of : 56 Height: 6 0 Weight: 120 54.8 MONITOR: -PO INTAKE/APPETITE -WEIGHTS -SUPPLEMENT INTAKE Recommendations: 1. PLEASE ORDER STRAWBERRY ENSURE SHAKE W/LUNCH MEAL DAILY FOR ADDITIONAL PROTEIN AND KCAL 2. PLEASE ADD MVI W/MINERAL DAILY + 100-200 MG VITAMIN C DAILY TO PROMOTE SKIN HEALING 3. PLEASE WEIGH PT q 3 DAYS FOR MONITORING PURPOSES, PT IS UNDERWEIGHT RD WILL F/U PER PROTOCOL PT IS MILD/MODERATELY COMPROMISED Respectfully, RACHEL ZIEGLER MS, RD, LD Food and Nutritional Services [facility] cc: client file
--- NOTE | ~2016-10-27 | CO ---
Unit #: [id number] #: [id number] Patient: FRANCESCA RAI [id number] [address] [place], [place] [address] [id number] MR#: [id number] NAME: FRANCESCA RAI ROOM: 560 Age: 56 Sex: M Admission Date: 10/27/2016 : 1960 Attending Physician: Paris Mccord M.D. Primary Care Physician: Leonor Primary Care Physician Consultation Date: 10/31/2016 CONSULTATION REPORT REQUESTING PHYSICIAN Dr. Mccord. REASON FOR CONSULTATION Leukocytosis. HISTORY OF PRESENT ILLNESS The patient is a 56-year-old male with history of hypertension, hyperlipidemia, atrial fibrillation, had a fem-pop bypass, right kvnxn-qbq-vsnb amputation, came in with complaints of shortness of breath. There is some question of left lower extremity cellulitis. He was admitted with possible pneumonia, started on Zosyn and vancomycin. WBC count is increasing. Infectious disease consultation is requested for further evaluation and antibiotic management. The patient denies any nausea, vomiting, diarrhea, cough, congestion, headaches, or dizziness. There are also concerns of scrotal swelling and erythema. The patient does complain of some pain around there and he said it started a day or so ago. PAST MEDICAL HISTORY 1. Peripheral vascular disease. 2. Right ommnt-msv-cwij amputation. 3. Hypertension. 4. Anxiety/depression. 5. Posttraumatic stress disorder. SOCIAL HISTORY Noncontributory. FAMILY HISTORY Noncontributory. ALLERGIES Penicillin, reaction unknown. CURRENT MEDICATIONS List reviewed. Antibiotics include Zosyn and vancomycin, although chart mentions him to be allergic to penicillin. PHYSICAL EXAMINATION GENERAL: Laying comfortably in bed. Does not seem to be in any distress. VITAL SIGNS: Temperature is 97.2, pulse 92, respirations 16, blood pressure 113/82. HEENT: Unremarkable. Unit #: [id number] #: [id number] Patient: FRANCESCA RAI CHEST: Clear to auscultation. HEART: Normal S1, S2. ABDOMEN: Soft, nontender. EXTREMITIES: Show a right aebph-nkz-yiln amputation. Left lower extremity on the lower part of the leg and ankle revealed mild erythema, warmth. No swelling. No tenderness. Scrotal area is mostly erythema without any significant swelling, some tenderness. No masses were felt. DIAGNOSTIC STUDIES LABORATORY: BUN 12, creatinine 0.7. WBC 13.6, hemoglobin 9.2, platelets 741,000. Blood cultures have been negative. IMAGING: CT scan of the chest negative for pulmonary embolism. Does have some evidence of multifocal pneumonia. ASSESSMENT 1. Possible pneumonia. 2. Possible left lower extremity cellulitis. 3. Scrotal (1) . 4. Right mlwpt-xlc-asvn amputation. 5. Leukocytosis. PLAN We are going to continue with current antibiotics, add Diflucan 200 mg IV q.24 hours. Monitor WBC count. Further recommendations depending on the course. I would like to thank Dr. Mccord for asking us to participate in the care of this patient. We will follow this patient along with you. Dictated by... Apple Shi TD: 11/01/2016 16:53 JOB #: [id number] CONSULTATION REPORT Page 1 of 1 X Ranjan Winston MD CONSULTATION REPORT
--- NOTE | ~2016-10-27 | US85 ---
[facility] A Service of [facility] & [facility] RADIOLOGY TEXT RESULTS PATIENT: FRANCESCA RAI LOCATION: [facility] 560-01 : 56 UNIT #: [id number] AGE: [address]: DEXTER OHARA MD SEX: M ORDER DR: [id number] [facility] [address]. [place], [place] [address] [id number] I MR#: [id number] Acc #: [id number] NAME: FRANCESCA RAI : 1960 SEX: M STUDY DATE/TIME: 10/27/2016 9:54 UNIT: [facility] ROOM: [facility] STUDY DESCRIPTION: US LE Veins Unilat or Ltd Stdy Attending Physician: Dexter Ohara M.D. Ordering Physician: Osorio Mojica M.D. Primary Care Physician: Primary Care Physician No MEDICAL IMAGING REPORT This report is preliminary unless electronic signature is present EXAM Left lower extremity venous duplex, 10/27/2016 HISTORY Left lower extremity pain for 2 days status post right leg amputation 2 weeks ago. Evaluate for deep vein thrombosis. TECHNIQUE Venous ultrasound examination of the left lower extremity was performed using grayscale, spectral Doppler and color flow Doppler imaging. FINDINGS The examination is negative. There is no evidence of left lower extremity deep venous thrombus from the groin to the lower calf. Visualized greater saphenous vein is also patent. IMPRESSION Negative examination. No evidence of left lower extremity deep venous thrombosis. Dictated by... Keanu Olmos M.D. THIS IS AN ELECTRONICALLY VERIFIED REPORT Keanu Olmos M.D. at 10/27/2016 4:54 PM AG/reena TD: 10/27/2016 14:45 JOB #: [id number] MEDICAL IMAGING REPORT Page 1 of 1 COPY
--- NOTE | ~2016-10-27 | CT16 ---
[facility] A Service of [facility] & [facility] RADIOLOGY TEXT RESULTS PATIENT: FRANCESCA RAI LOCATION: [facility] 560-01 : 56 UNIT #: [id number] AGE: [address]: DEXTER LARA MD SEX: M ORDER DR: [id number] [facility] [address] [facility] [place], [place] [address] [id number] MR#: [id number] Acc #: [id number] NAME: FRANCESCA RAI : 1960 SEX: M STUDY DATE/TIME: 10/27/2016 11:25 UNIT: [facility] ROOM: STUDY DESCRIPTION: CT Angio Chest for PE Attending Physician: Osorio Mojica M.D. Ordering Physician: Osorio Mojica M.D. Primary Care Physician: Primary Care Physician No MEDICAL IMAGING REPORT This report is preliminary unless electronic signature is present EXAM CT angiogram of the chest for pulmonary embolism, 10/27/2016 11:25 hours HISTORY Shortness of air for 1-1/2 days. Recent surgery with lower extremity amputation last week. Evaluate for pulmonary embolism. COMPARISON Chest film 10/27/2016, 10/09/[address] abdomen and pelvis 10/07/2016. TECHNIQUE Dynamic helical CT angiographic images were obtained from the thoracic inlet through the upper abdomen. 3-D sagittal and coronal reconstructions were performed. Contrast was Isovue-370, 100 mL IV. Total exam DLP 441 mGy-cm. This CT exam was performed with one or more of the following radiation dose reduction techniques: automatic exposure control, adjustment of mA and/or kV according to patient size, and iterative reconstruction. FINDINGS Images through the thoracic inlet demonstrate no thyroid lesion or adenopathy. Images through the chest demonstrate well opacified pulmonary arteries which are normal in caliber. There are no filling defects to suggest the presence of pulmonary emboli. The aorta appears normal as well. There are coronary artery calcifications. Cardiac chambers and pericardium appear normal. The esophagus is normal. There are small likely reactive nodes in the right paratracheal, precarinal, AP window region and subcarinal region. There is a small amount of soft tissue density at the yamileth extending STS. [facility] A Service of [facility] & [facility] RADIOLOGY TEXT RESULTS PATIENT: FRANCESCA RAI LOCATION: [facility] 560-01 : 56 UNIT #: [id number] AGE: [address]: DEXTER LARA MD SEX: M ORDER DR: towards the left mainstem bronchus dependently. Mucous or debris is favored. The lungs are abnormal with marked emphysematous changes more severe at the upper lobe and lower lobes although blebs and bullae are present diffusely. The patient has areas of peribronchiolar wall thickening in the upper lower lungs likely bronchitis which could be chronic. There are multifocal airspace changes as well as areas of ground-glass change and interstitial change in both lungs. These parenchymal changes are new from 10/07/2016. Findings most likely represent multifocal pneumonia. Edema is possible. The irregular distribution may be related to the underlying distorted architecture from the extensive emphysematous change. There is pleural thickening at the right base with very coarse calcification unchanged from prior exams. Limited views through the upper abdomen are negative. IMPRESSION 1. No evidence of pulmonary embolism. Normal aorta. 2. Again demonstrated is marked underlying emphysematous change with blebs and bullae bilaterally and very coarse calcification at the right hemidiaphragm. The patient has new multifocal airspace and ground-glass changes as well as interstitial changes in an irregular distribution through both lungs. The irregular distribution may be related to the distorted underlying architecture from the emphysematous changes. Certainly the basilar changes are new from 10/07/2016. The findings could represent multifocal pneumonia or edema. There is a small amount of mucous debris seen dependently at the yamileth within the airway. This could represent mucous from underlying pneumonia. The presence of aspiration, however cannot be excluded. 3. Limited views through the upper abdomen are unchanged. STAT * RESULT Dictated by... Carly Heart M.D. THIS IS AN ELECTRONICALLY VERIFIED REPORT Carly Heart M.D. at 10/27/2016 2:30 PM JUAN/reena TD: 10/27/2016 11:54 JOB #: [id number] MEDICAL IMAGING REPORT [facility] A Service of [facility] & [facility] RADIOLOGY TEXT RESULTS PATIENT: FRANCESCA RAI LOCATION: [facility] 560-01 : 56 UNIT #: [id number] AGE: [address]: DEXTER LARA MD SEX: M ORDER DR: Page 1 of 1 COPY
--- NOTE | ~2016-10-27 | CO ---
Unit #: [id number] #: [id number] Patient: FRANCESCA RAI [id number] [facility]. [place], [place] [address] [id number] I MR#: [id number] NAME: FRANCESCA RAI ROOM: 560 Age: 56 Sex: M Admission Date: 10/27/2016 : 1960 Attending Physician: Sophy Ruiz M.D. Primary Care Physician: Primary Care Physician No Consultation Date: 10/29/2016 CONSULTATION REPORT REASON FOR CONSULTATION Possible infection, right itcpx-ugh-jiva amputation. HISTORY OF PRESENT ILLNESS He is a 56-year-old gentleman with a history of severe peripheral artery disease, who has undergone previous right leg bypass at [facility] about two years ago. His bypass graft failed. He subsequently underwent right adqyz-auo-kgyy amputation at [facility] on 10/10/2016. He is now readmitted with congestive heart failure and possible pneumonia. He was also noted to have redness of his right jbkbq-vvs-vlze amputation incision. He denies any increased pain from his incision. He denies any fever or chills. He has not observed any drainage from his incision. He was started empirically on antibiotics on admission and the redness of his right leg has been reported to have decreased. PAST MEDICAL HISTORY Coronary artery disease, hypertension, hyperlipidemia, and peripheral artery disease. PAST SURGICAL HISTORY Right thoracotomy with resection of a benign mass, right femoral tibial bypass with prosthetic graft, and right erkxy-pot-fnlz amputation. MEDICATIONS Citalopram 40 mg p.o. daily, Vistaril 25 mg p.o. b.i.d., Toprol-XL 25 mg p.o. b.i.d., Protonix 40 mg p.o. b.i.d., and Percocet 10/325 one p.o. every 6 hours as needed. ALLERGIES Penicillin. SOCIAL HISTORY He is and lives in [place]. 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 He smokes one pack of cigarettes per day. He drinks one pint of alcohol per day. He also smokes marijuana. FAMILY HISTORY Both parents had heart disease. He states that both of his parents of lung cancer related to asbestos exposure. REVIEW OF SYSTEMS 10-point review of systems is negative. PHYSICAL EXAMINATION Unit #: [id number] #: [id number] Patient: FRANCESCA RAI VITAL SIGNS: Temperature 98.3, pulse 58, respirations 16, and blood pressure 109/71. GENERAL APPEARANCE: A thin white male. Relatively stoic. Somewhat confused. No acute distress. HEENT: Extraocular movements intact. No xanthelasma of the eyelids. Oral mucosa is pink and moist. NECK: No cervical bruits. No JVD. LUNGS: Decreased breath sounds bilaterally. Otherwise clear. No use of accessory respiratory muscles. HEART: Regular rate and rhythm without murmur. No extra heart sounds. CHEST: Well-healed right lateral thoracotomy scar. ABDOMEN: Soft, nondistended, and nontender. No palpable masses. No palpable hepatomegaly or splenomegaly. EXTREMITIES: The right stwlq-wuc-bfxh amputation wound edges are well approximated with no fluctuance or drainage. There is mild erythema adjacent to the staple line. Radial and femoral pulses are palpable bilaterally. Popliteal, dorsalis pedis, and posterior tibial pulses are not palpable on the left. DIAGNOSTIC STUDIES LABORATORY RESULTS: White blood count is currently 9200. IMPRESSION 1. Mild erythema of the right pywbh-ied-bxen amputation staple line, could be related to cellulitis, but it is clinically improving. There is no evidence of deep space infection, which would warrant surgical intervention. 2. Congestive heart failure. 3. History of gastrointestinal bleeding. 4. Hypertension. 5. Hyperlipidemia. 6. History of coronary artery disease. PLAN My recommendation would be to remove every other staple from his incision to help decrease irritation from the yusuf. I would also recommend keeping his wound clean with antibacterial soap and water. I will see him back in the office in about two weeks to reassess his wound. Hopefully, the remaining yusuf can be removed at that time. If there are other questions or problems in the meantime, I will be happy to see him sooner. Dictated by... Suhail Stevens M.D. ZULEYMA/kathleen TD: 10/29/2016 15:11 JOB #: [id number] Unit #: [id number] #: [id number] Patient: FRANCESCA RAI CONSULTATION REPORT Page 1 of 1 X Self,Suhail Spencer MD X CONSULTATION REPORT
--- NOTE | ~2016-10-27 | CR72 ---
[facility] A Service of [facility] RADIOLOGY TEXT RESULTS PATIENT: FRANCESCA RAI LOCATION: [facility] 560-01 : 56 UNIT #: [id number] AGE: [address]: DEXTER LARA MD SEX: M ORDER DR: [id number] [id number] [facility]. [place], [place] [address] [id number] MR#: [id number] Acc #: [id number] NAME: FRANCESCA RAI : 1960 SEX: M STUDY DATE/TIME: 10/27/2016 09:36 UNIT: SUSANNA ROOM: STUDY DESCRIPTION: CR Chest Single View Portable Attending Physician: Osorio Mojica M.D. Ordering Physician: Osorio Mojica M.D. Primary Care Physician: Primary Care Physician No MEDICAL IMAGING REPORT This report is preliminary unless electronic signature is present EXAM Chest portable, 10/27/2016 09:36 hours HISTORY 56-year-old man with shortness of air and lower leg swelling today. COMPARISON 10/09/2016 FINDINGS Portable upright chest demonstrates heart size at the upper limits of normal. The aorta is atherosclerotic. The patient has underlying emphysematous change with suture line in the right apex. The patient has developed diffuse coarse bilateral interstitial changes in both lungs since 10/10/2016 most suggestive of pulmonary edema. There is blunting of the right costophrenic sulcus consistent with a small effusion. IMPRESSION There is underlying emphysematous change with new bilateral coarse interstitial change throughout both lungs greater in the mid and lower lung zones since 10/10/2016. There is a small associated right pleural effusion. Findings most likely represent pulmonary edema. Dictated by... Carly Heart M.D. THIS IS AN ELECTRONICALLY VERIFIED REPORT Carly Heart M.D. at 10/27/2016 2:30 PM Ashish TD: 10/27/2016 13:23 [facility] A Service of [facility] RADIOLOGY TEXT RESULTS PATIENT: FRANCESCA RAI LOCATION: [facility] 560-01 : 56 UNIT #: [id number] AGE: [address]: DEXTER LARA MD SEX: M ORDER DR: JOB #: [id number] MEDICAL IMAGING REPORT Page 1 of 1 COPY
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
--- NOTE | ~2016-10-27 | HP ---
Unit #: [id number] #: [id number] Patient: FRANCESCA RAI [id number] [address] [place], [place] [address] [id number] I MR#: [id number] NAME: FRANCESCA RAI ROOM: 560 Age: 56 Sex: M Admission Date: 10/27/2016 : 1960 Attending Physician: Dexter Ohara M.D. Primary Care Physician: No Primary Care Physician HISTORY AND PHYSICAL CHIEF COMPLAINT Shortness of breath. HISTORY OF PRESENT ILLNESS The patient is a 56-year-old male with a history of hypertension, hyperlipidemia, paroxysmal afib, not on anticoagulation secondary to the severe anemia with a GI bleed and peripheral arterial disease, status post fem-pop bypass in 2014 and right above the knee amputation on October 10, presented to the emergency room complaining of the shortness of breath. The patient stated the patient has been having gradually worsening shortness of breath since surgery. The patient was found to be in acute systolic heart failure and the patient with a BNP of 1249. The patient's lactic was 5.8 and then patient had a CT angio of the chest that showed no evidence of pulmonary embolism. Again demonstrates marked underlying emphysematous change with blebs and bullae bilaterally and very coarse calcification at the right hemidiaphragm. The patient has a new multifocal airspace and ground-glass changes as well as interstitial changes in an irregular distribution throughout both lungs. The irregular distribution may be related to distorted underlying architecture from the emphysematous change. Certainly the basilar changes are new from 10/07. The findings could represent multifocal pneumonia or edema. There is a small amount of mucous debris seen dependently at the yamileth within the airway. The patient has been started on the empiric IV antibiotics and sepsis protocol. The patient is being admitted for the above reasons. PAST MEDICAL HISTORY 1. History of peripheral vascular disease. 2. Ischemic foot, status post right AKA. 3. Hypertension. 4. Anxiety and depression. 5. Post traumatic stress disorder. SOCIAL HISTORY He has smoked one pack daily since the age of 13. He drinks alcohol, one pint of whiskey daily. Marijuana on a daily basis. FAMILY HISTORY Positive for heart disease. HOME MEDICATIONS He is on citalopram, Vistaril, Toprol, Protonix, Percocet. ALLERGIES Unit #: [id number] #: [id number] Patient: FRANCESCA RAI. REVIEW OF SYMPTOMS Positive for shortness of breath. Positive for redness of the left lower extremity and swelling of the left lower extremity. Positive for chest pain. Denies any fever. Denies any nausea and vomiting and other systems have been reviewed and all other systems were negative. PHYSICAL EXAMINATION GENERAL APPEARANCE: On examination the patient is lying on a bed, not in acute distress. VITAL SIGNS: Temperature 99.7, pulse 118, respiratory rate 20, blood pressure 115/67, sating 99% at room air. HEENT: Head atraumatic and normocephalic. Pupils equal, round and reacting to light and accommodation. Extraocular movements are intact. NECK: Supple. LUNGS: Decreased air entry at the bases. Positive for rhonchi and rales. HEART: Regular rate and rhythm. ABDOMEN: Soft, positive bowel sounds. EXTREMITIES: Right rqiim-oyc-jbok amputation with the yusuf intact and no open wound. Lower extremities positive for trace edema and the erythema of the left lower extremity. NEUROLOGIC: Awake, alert and oriented. No gross focal motor deficit. DIAGNOSTIC STUDIES LABORATORY DATA: WBCs 9.4, hemoglobin 9.8, hematocrit 29.9 and platelets 684, INR is 1, lactic acid is 5.8, and sodium 140, potassium 3.7, chloride 109, bicarb 118, glucose 93, BUN 8, creatinine 0.5, AST 29, ALT 15, alkaline phosphatase 102, total bilirubin is less than 0.1, albumin is 1.9, BNP is 1249 and troponin is 0.29. Alcohol blood level is 60. Troponin is 0.17. Lactic acid is down to 1.7. Troponin is positive for 0.38. IMAGING: CT angio of the chest shows no evidence of pulmonary embolism. Normal aorta. Again demonstrated is marked underlying emphysematous change with blebs and bullae bilaterally and very coarse calcification at the right hemidiaphragm. The patient has new multifocal airspace and ground-glass changes as well as interstitial changes in an irregular distribution through both lungs. The irregular distribution may be related to the distorted underlying architecture from the emphysematous changes. Certainly the basilar changes are new from 10/07/2016. The findings could represent multifocal pneumonia or edema. There is a small amount of mucous debris seen dependently at the yamileth within the airway. This could represent mucous from underlying pneumonia. The presence of aspiration however cannot be excluded. Limited views through the upper abdomen are unchanged. Chest x-ray shows there is underlying emphysematous change with new bilateral coarse interstitial changes throughout both lungs, greater in the mid and lower lung zones. There is a small associated right pleural effusion. Findings most likely represent pulmonary edema. Ultrasound of the left lower extremity shows negative examination. No evidence of left lower extremity deep venous thrombosis. ASSESSMENT 1. Acute systolic heart failure. 2. Sepsis. Unit #: [id number] #: [id number] Patient: FRANCESCA RAI 3. Multifocal pneumonia. 4. Non-ST elevation myocardial infarction. PLAN 1. Plan to admit the patient to the inpatient. 2. Patient will be continued with the diuresis with the Lasix 40 mg q.6 h. for three days and continue with the empiric IV antibiotic with Maxipime and Zithromax. 3. Continue the sepsis protocol. 4. Further recommendations will follow as more lab results are available. Dictated by Apple Akins/donato TD: 10/27/2016 20:09 JOB #: [id number] HISTORY AND PHYSICAL Page 1 of 1 X DEXTER OHARA MD X HISTORY AND PHYSICAL
--- NOTE | ~2016-10-27 | EKG ---
PATIENT: FRANCESCA RAI UNIT #: [id number] Ventricular Rate: 90 BPM Atrial Rate: 90 BPM P-R Interval: 130 ms QRS Duration: 112 ms Q-T Interval: 414 ms QTC Calculation(Bezet): 506 ms P Rachel: 65 degrees Calculated R Rachel: -9 degrees Calculated T Rachel: 54 degrees Diagnosis Line: Suspect unspecified pacemaker failure Diagnosis Line: Sinus rhythm with occasional Premature atrial Diagnosis Line: complexes Diagnosis Line: Cannot rule out Inferior infarct (cited on or Diagnosis Line: before 15-OCT-2016) Diagnosis Line: ST and T wave abnormality, consider lateral ischemia Diagnosis Line: Prolonged QT Diagnosis Line: Abnormal ECG Diagnosis Line: When compared with ECG of 15-OCT-2016 05:59, Diagnosis Line: Inverted T waves have replaced nonspecific T wave Diagnosis Line: abnormality in Lateral leads Diagnosis Line: Confirmed by KELVIN ALEXANDER MD ([id number]) on 10/29/2016 Diagnosis Line: 2:48:25 PM INTERPRETING MD: BENJAMIN ERICKSON
--- NOTE | ~2016-10-27 | DS ---
Unit #: [id number] #: [id number] Patient: FRANCESCA RAI [id number] [address] [address] [id number] I MR#: [id number] NAME: FRANCESCA RAI ROOM: 560 Age: 56 Sex: M Admission Date: 10/27/2016 : 1960 Discharge Date: 11/02/2016 Attending Physician: Paris Mccord M.D. Primary Care Physician: No Primary Care Physician DISCHARGE SUMMARY DISCHARGE DIAGNOSES 1. Acute systolic heart failure, ejection fraction 45%-50%. 2. Paroxysmal atrial fibrillation, currently normal sinus rhythm. 3. Severe peripheral arterial disease, status post right-side ysrtl-zre-iegu amputation with right stump infection. 4. Left lower leg cellulitis. 5. Scrotal fungal infection. 6. History of recent GI bleed. Status post embolization. 7. Chronic obstructive pulmonary disease. 8. Hypertension. 9. Hyperlipidemia. 10. Anxiety. 11. Depression. 12. Paranoia with acute psychosis. 13. Alcohol dependence. 14. No pneumonia. 15. Anemia, likely iron deficiency. 16. Thrombocytosis. 17. History of posttraumatic stress disorder. CONSULTANTS Dr. Cevallos. Dr. Stevens. Dr. Winston. PROCEDURES PERFORMED None. DIAGNOSTIC DATA LABORATORY: Blood cultures negative. Sodium 133, potassium 4.3, creatinine 0.6, white blood cell count 11.9, hemoglobin 8.7, platelets 706, magnesium 2.2. IMAGING: X-ray of the right hip shows mild degenerative changes. No acute findings. Urinalysis no infection. ALLERGIES No known drug allergies. DISCHARGE MEDICATIONS 1. Neurontin 100 mg p.o. t.i.d. 2. Celexa 40 mg daily. 3. Vistaril 25 mg p.o. b.i.d. 4. Nicotine 21 mg transdermal daily over the counter. Unit #: [id number] #: [id number] Patient: FRANCESCA RAI 5. Toprol XL 25 mg p.o. b.i.d. 6. Colace 100 mg p.o. b.i.d. 7. Lasix 40 mg daily. 8. Chlorhexidine 4% applied topically to the right cpxgy-vcg-cbdp amputation area daily. 9. Percocet 10 mg 0.5-1 tablet p.o. q.6 h. p.r.n. pain. 10. Spironolactone 25 mg p.o. daily. 11. Protonix 40 mg p.o. b.i.d. 12. Potassium 10 mEq p.o. daily. 13. Bactrim DS 1 tablet p.o. b.i.d. for 5 days. 14. Diflucan 200 mg p.o. daily for 5 days. 15. Lisinopril 2.5 mg daily. HOSPITAL COURSE The patient is a 56-year-old admitted because of shortness of breath. Acute systolic heart failure: Ejection fraction 40%-45%. The patient was seen by Dr. Conklin. The patient received diuretics. Currently compensated. He is on Lasix 40 mg p.o. daily, spironolactone, lisinopril daily. Severe peripheral arteria disease: Status post right vkoji-evi-cnfm amputation with right stump infection. The patient was seen by infectious disease. The patient received broad spectrum antibiotics. The patient will continue Bactrim for five more days. Left leg cellulitis: Currently resolved. The patient did receive broad spectrum antibiotics. The patient will continue five more days of Bactrim for it. Scrotal fungal infection: The patient received IV Diflucan. The patient's scrotal swelling got better. His (1) got better. The patient will be discharged on Diflucan 200 mg for 5 more days. Paroxysmal atrial fibrillation: The patient was seen by cardiology. Currently normal sinus rhythm. Rate controlled. Continue with metoprolol. Acute psychosis during hospitalization course: Likely from alcohol dependence and withdrawal. The patient was seen by Dr. Cevallos. He added Haldol. Currently stable. Continue Vistaril at home, which he has a prescription for at home. Severe protein malnutrition: Continue with high protein diet as per dietitian recommendations. Change of Lasix. The patient has been discharged on lisinopril 20 mg p.o. daily and spironolactone 12.5 mg p.o. daily. Discussed with infectious disease. Okay to discharge the patient home. DISCHARGE INSTRUCTIONS 1. The patient discharged home to follow up with family physician in one week time. 2. The patient will have a BMP in one week time and follow up with primary care physician with results. 3. The patient will have home health. 4. Follow up with Dr. Stevens, vascular, in two weeks time. Discharge time taken was 32 minutes. Unit #: [id number] #: [id number] Patient: FRANCESCA RAI Dictated by... Apple Huff/jeevan TD: 11/02/2016 13:14 JOB #: [id number] DISCHARGE SUMMARY Page 1 of 1 X Paris Mccord MD X DISCHARGE SUMMARY
[~2016-10-27 09:08] MED LIST: CITALOPRAM HBR40 M1 PO; PERCOCET10 PO; PROTONIX PO; TOPROL XL PO; VISTARIL PO; ZESTRIL40 MG PO
[2016-10-27 09:51] LABS: BASOPHIL% 0.3 % (0-2.5); EOSINOPHIL% 0.1 % (0.0-7.0); HEMATOCRIT 29.9 % (38.0-50.0); HEMOGLOBIN 9.8 gm/dL (13.0-16.0); LYMPHOCYTE# 1.4 X10e3 (1.0-3.5); LYMPHOCYTE% 14.8 % (17.0-45.0); MEAN CELL VOLUME 88.2 FL (83-96); MEAN CORPUSCULAR HEMOGLOBIN 28.9 PG (28-34); MEAN CORPUSCULAR HGB CONC 32.7 g/dL (30-36); MEAN PLATELET VOLUME 6.9 FL (6.5-11.5); MONOCYTE# 0.9 X10e3 (0-1.0); MONOCYTE% 9.2 % (3.0-12.0); NEUTROPHIL# 7.1 X10e3 (1.5-7.1); NEUTROPHIL% 75.6 % (40-75); PLATELET COUNT 684 X10e3 (140-420); RED BLOOD COUNT 3.39 X10e (3.90-5.60); RED CELL DISTRIBUTION WIDTH 19.3 % (11.0-15.5); WHITE BLOOD COUNT 9.4 X10e3 (4.0-10.5)
[2016-10-27 09:52] LABS: DIFF IND NO
[2016-10-27 10:09] LABS: PARTIAL THROMBOPLASTIN TIME 28.5 SECONDS (23.5-31.3); PROTHROMBIN TIME (PATIENT) 10.7 SECONDS (10.0-11.7)
[2016-10-27 10:21] LABS: ALBUMIN SERUM 1.9 g/dL (3.5-5.0); ALKALINE PHOSPHATASE 102 U/L (32-92); ALT (SGPT) 15 U/L (10-40); AST (SGOT) 29 U/L (10-42); BILIRUBIN, DIRECT 0.1 mg/dL (0.0-0.2); BLOOD UREA NITROGEN 8 mg/dL (9-23); CALCIUM SERUM 7.9 mg/dL (8.4-10.2); CARBON DIOXIDE 18 mmol/L (22-31); CHLORIDE 109 mmol/L (100-111); CREATININE SERUM 0.5 mg/dL (0.6-1.4); GLOM FILT RATE Estimated 119.5 mL/min (>60); GLUCOSE FASTING 93 mg/dL (70-110); POTASSIUM 3.7 mmol/L (3.5-5.1); PROTEIN TOTAL SERUM 5.8 g/dL (6.0-8.3); SODIUM 140 mmol/L (135-145)
[2016-10-27 10:22] LABS: BILIRUBIN,TOTAL <0.1 mg/dL (0.2-2.0)
[2016-10-27 10:41] LABS: POC - CKMB 9.1 ng/mL (0.0-7.9); POC - TROPONIN 0.29 ng/mL (<=0.05)
[2016-10-27 11:15] LABS: POC - TROPONIN 0.17 ng/mL (<=0.05)
[2016-10-28 05:28] LABS: HEMATOCRIT 28.7 % (38.0-50.0); HEMOGLOBIN 9.7 gm/dL (13.0-16.0); MEAN CELL VOLUME 87.1 FL (83-96); MEAN CORPUSCULAR HEMOGLOBIN 29.3 PG (28-34); MEAN CORPUSCULAR HGB CONC 33.7 g/dL (30-36); MEAN PLATELET VOLUME 7.2 FL (6.5-11.5); RED BLOOD COUNT 3.3 X10e (3.90-5.60); RED CELL DISTRIBUTION WIDTH 19.2 % (11.0-15.5); WHITE BLOOD COUNT 9.2 X10e3 (4.0-10.5)
[2016-10-28 06:14] LABS: BUN/CREATININE RATIO 17.14; CALCIUM SERUM 7.5 mg/dL (8.4-10.2); CREATININE SERUM 0.7 mg/dL (0.6-1.4); GLOM FILT RATE Estimated 104.1 mL/min (>60); MAGNESIUM 1.9 mg/dL (1.6-3.0); POTASSIUM 3.5 mmol/L (3.5-5.1)
[2016-10-29 07:05] LABS: BUN/CREATININE RATIO 16.66; CALCIUM SERUM 7.7 mg/dL (8.4-10.2); CREATININE SERUM 0.6 mg/dL (0.6-1.4); GLOM FILT RATE Estimated 110.9 mL/min (>60); POTASSIUM 4.1 mmol/L (3.5-5.1)
[2016-10-30 11:24] LABS: HEMATOCRIT 31.1 % (38.0-50.0); HEMOGLOBIN 9.7 gm/dL (13.0-16.0); MEAN CELL VOLUME 91.5 FL (83-96); MEAN CORPUSCULAR HEMOGLOBIN 28.5 PG (28-34); MEAN CORPUSCULAR HGB CONC 31.2 g/dL (30-36); MEAN PLATELET VOLUME 7.3 FL (6.5-11.5); RED BLOOD COUNT 3.41 X10e (3.90-5.60); RED CELL DISTRIBUTION WIDTH 19.1 % (11.0-15.5); WHITE BLOOD COUNT 12.9 X10e3 (4.0-10.5)
[2016-10-30 11:32] LABS: BUN/CREATININE RATIO 16.66; CREATININE SERUM 0.6 mg/dL (0.6-1.4); GLOM FILT RATE Estimated 110.9 mL/min (>60); POTASSIUM 4.7 mmol/L (3.5-5.1)
[2016-10-31 06:40] LABS: HEMATOCRIT 28.5 % (38.0-50.0); HEMOGLOBIN 9.2 gm/dL (13.0-16.0); MEAN CORPUSCULAR HEMOGLOBIN 28.2 PG (28-34); MEAN CORPUSCULAR HGB CONC 32.2 g/dL (30-36); MEAN PLATELET VOLUME 7.2 FL (6.5-11.5); RED BLOOD COUNT 3.25 X10e (3.90-5.60); RED CELL DISTRIBUTION WIDTH 19.2 % (11.0-15.5); WHITE BLOOD COUNT 13.6 X10e3 (4.0-10.5)
[2016-10-31 07:04] LABS: MEAN CELL VOLUME 87.4 FL (83-96)
[2016-10-31 07:20] LABS: ALBUMIN SERUM 2.1 g/dL (3.5-5.0); BILIRUBIN,TOTAL 0.5 mg/dL (0.2-2.0); BUN/CREATININE RATIO 17.14; CALCIUM SERUM 8.3 mg/dL (8.4-10.2); CREATININE SERUM 0.7 mg/dL (0.6-1.4); GLOM FILT RATE Estimated 104.1 mL/min (>60); POTASSIUM 4.2 mmol/L (3.5-5.1); PROTEIN TOTAL SERUM 6.5 g/dL (6.0-8.3)
[2016-11-01 12:17] LABS: HEMATOCRIT 26.3 % (38.0-50.0); HEMOGLOBIN 8.4 gm/dL (13.0-16.0); MEAN CELL VOLUME 87.7 FL (83-96); MEAN CORPUSCULAR HEMOGLOBIN 27.9 PG (28-34); MEAN CORPUSCULAR HGB CONC 31.8 g/dL (30-36); MEAN PLATELET VOLUME 6.7 FL (6.5-11.5); RED CELL DISTRIBUTION WIDTH 18.8 % (11.0-15.5)
[2016-11-01 13:35] LABS: BUN/CREATININE RATIO 18.33; CREATININE SERUM 0.6 mg/dL (0.6-1.4); GLOM FILT RATE Estimated 110.9 mL/min (>60); POTASSIUM 4.8 mmol/L (3.5-5.1)
[2016-11-02 06:28] LABS: HEMATOCRIT 26.3 % (38.0-50.0); HEMOGLOBIN 8.7 gm/dL (13.0-16.0); MEAN CELL VOLUME 87.5 FL (83-96); MEAN CORPUSCULAR HEMOGLOBIN 28.8 PG (28-34); MEAN CORPUSCULAR HGB CONC 32.9 g/dL (30-36); MEAN PLATELET VOLUME 6.9 FL (6.5-11.5); RED BLOOD COUNT 3.01 X10e (3.90-5.60); RED CELL DISTRIBUTION WIDTH 18.7 % (11.0-15.5); WHITE BLOOD COUNT 11.9 X10e3 (4.0-10.5)
[2016-11-02 07:33] LABS: BUN/CREATININE RATIO 13.33; CALCIUM SERUM 8.4 mg/dL (8.4-10.2); CREATININE SERUM 0.6 mg/dL (0.6-1.4); GLOM FILT RATE Estimated 110.9 mL/min (>60); MAGNESIUM 1.9 mg/dL (1.6-3.0); POTASSIUM 4.3 mmol/L (3.5-5.1)
[2016-11-02] MEDS ORDERED: NEURONTIN100 MG PO (14:14)
[2016-11-02] MEDS ORDERED: DOCUSATE SODIU100 MG PO (14:15)
[2016-11-02] MEDS ORDERED: NICOTINE PATCH1 EACH TD (14:15)
[2016-11-02] MEDS ORDERED: LASIX20 MG PO (14:16)
[2016-11-02] MEDS ORDERED: HIBICLENS 4% L120 ML TOP (14:17)
[2016-11-02] MEDS ORDERED: ALDACTONE PO (14:17)
[2016-11-02] MEDS ORDERED: KCL PO (14:18)
[2016-11-02] MEDS ORDERED: BACTRIM DS TAB1 EACH PO (14:19)
[2016-11-02] MEDS ORDERED: DIFLUCAN200 MG PO (14:19)
[2016-11-02] MEDS ORDERED: LISINOPRIL2.5 MG PO (14:20)
[2016-12-07] MEDS ORDERED: COMBIVENT U/D3 M2 INH (04:25)
[2016-12-07] MEDS ORDERED: PREDNISONE PO (04:28)
[2016-12-07] MEDS ORDERED: DESYREL50 MG PO (04:30)
[2016-12-07] MEDS ORDERED: BUMEX1 MG PO (04:31)
[2016-12-07] MEDS ORDERED: MULTI-VITAMIN1 EAC1 PO (04:33)
[2016-12-07] MEDS ORDERED: ASCORBIC ACID500 M3 PO (04:36)
[2016-12-07] MEDS ORDERED: K-TAB ER20 MEQ PO (04:36)
== END 2016-11-02 15:50 | disposition home health service (06) | DRG 291 ==
LOC: CED 09:08 → C5B 13:07 → CED 14:06 → C5B 10-28 05:26
PROVIDERS: Emergency Medicine; Internal Medicine; Internal Medicine Cardiovascular Disease; Nurse Practitioner
PROC: B32TYZZ Computerized Tomography (CT Scan) of Left Pulmonary Artery using Other Contrast (ICD-10-PCS; principal; 2016-10-27)
PROC: B32SYZZ Computerized Tomography (CT Scan) of Right Pulmonary Artery using Other Contrast (ICD-10-PCS; 2016-10-27)
DX: I50.21 Acute systolic (congestive) heart failure (principal); E43 Unspecified severe protein-calorie malnutrition; F33.2 Major depressive disorder, recurrent severe without psychotic features; B49 Unspecified mycosis; Z89.611 Acquired absence of right leg above knee; T87.43 Infection of amputation stump, right lower extremity; I48.0 Paroxysmal atrial fibrillation; L03.116 Cellulitis of left lower limb; Z68.1 Body mass index [BMI] 19.9 or less, adult; F10.239 Alcohol dependence with withdrawal, unspecified; F41.9 Anxiety disorder, unspecified; F43.12 Post-traumatic stress disorder, chronic; D72.829 Elevated white blood cell count, unspecified; I73.9 Peripheral vascular disease, unspecified; Z88.0 Allergy status to penicillin; I25.10 Atherosclerotic heart disease of native coronary artery without angina pectoris; E78.5 Hyperlipidemia, unspecified; J44.9 Chronic obstructive pulmonary disease, unspecified; D50.9 Iron deficiency anemia, unspecified; Y90.3 Blood alcohol level of 60-79 mg/100 ml
CPT/HCPCS: 36415; 71010; 71275; 73502; 80048; 80053; 80076; 80202; 82308; 82553; 83605; 83735; 83880; 84484; 85025; 85027; 85610; 85730; 87040; 93005; 93971; 96374; 97110; 97162; 97166; 97530; 97535; 99285; G0480; G8978-GP; G8979-GP; G8987-GO; G8988-GO; J0456; J0692; J1450; J1940; J2543; J3260; J3370; Q9967

== ENCOUNTER 2016-11-05 22:10 | Inpatient (IN) | payer MEDICAID ==
--- NOTE | ~2016-11-05 | US83 ---
[facility] A Service of [facility] RADIOLOGY TEXT RESULTS PATIENT: FRANCESCA RAI LOCATION: [facility] 329-01 : 56 UNIT #: [id number] AGE: [address]: Dante Saha MD SEX: M ORDER DR: [id number] [facility] [address] [facility] [facility] [place], [place] [address] [id number] I MR#: [id number] Acc #: [id number] NAME: FRANCESCA RAI : 1960 SEX: M STUDY DATE/TIME: 11/08/2016 20:33 UNIT: [address] ROOM: [address] [place] [address] DESCRIPTION: US [employer] Attending Physician: Janes Perales M.D. Ordering Physician: Mariza Queen M.D. Primary Care Physician: No Primary Care Physician MEDICAL IMAGING REPORT This report is preliminary unless electronic signature is present DATE OF EXAMINATION 11/08/2016 EXAM Right lower extremity arterial duplex. CLINICAL HISTORY Status post right above knee amputation. FINDINGS There is a significant amount of irregular, homogeneous, echogenic plaque seen in the right common femoral artery but no flow is seen. There is no flow seen in the right superficial femoral artery, also with heavy calcification. There is no flow seen in the right superficial femoral artery graft nor the right profunda artery. There is some small collateral flow seen in the groin. IMPRESSION This is an abnormal study. There is no flow seen in the right common femoral artery, superficial femoral artery, or profunda artery. There is no flow seen in the right lower extremity bypass graft. There is some small collateralization that is noted in the groin. STAT * RESULT Dictated by... Will Saldana M.D. THIS IS AN ELECTRONICALLY VERIFIED REPORT Will Saldana M.D. at 11/14/2016 4:06 PM [facility] A Service of [facility] RADIOLOGY TEXT RESULTS PATIENT: FRANCESCA RAI LOCATION: [facility] 329-01 : 56 UNIT #: [id number] AGE: [address]: Dante Saha MD SEX: M ORDER DR: Myron TD: 11/09/2016 13:46 JOB #: [id number] MEDICAL IMAGING REPORT Page 1 of 1 COPY
--- NOTE | ~2016-11-05 | CO ---
Unit #: [id number] #: [id number] Patient: FRANCESCA RAI [id number] [address] [place], [place] [address] [id number] I MR#: [id number] NAME: FRANCESCA RAI ROOM: 329 Age: 56 Sex: M Admission Date: 11/06/2016 : 1960 Attending Physician: Janes Perales M.D. Primary Care Physician: No Primary Care Physician Consultation Date: 11/08/2016 CONSULTATION REPORT REASON FOR CONSULT Possible pneumonia. HISTORY OF PRESENT ILLNESS This is a pleasant 56-year-old male with a past medical history significant for hypertension, peripheral vascular disease, LV dysfunction, who presented to the emergency room with tremors and confusion. The patient is well known to me from previous admission a month ago. However, apparently patient was readmitted again ten days ago for confusion. At that time, he was thought also to have a cellulitis and scrotum infection. CT angiogram on October 27, 2016, was concerning for multifocal pneumonia but there is no clear documentation of pneumonia treatment in the discharge summary. Patient went home on last week. However, on Sunday, he started declining again and becoming confused and shaky. His symptom progressed over the weekend and on Sunday he fell so decided to bring him to the emergency room. His chest x-ray today is consistent with bilateral diffuse infiltrate. However, he is not hypoxic and he has only minimal cough. The patient is oriented to self and place but confused to people. PAST MEDICAL HISTORY 1. LV dysfunction. 2. Upper GI bleed. 3. Duodenal ulcer. 4. COPD. 5. Peripheral vascular disease. 6. Hyperlipidemia. 7. Hypertension. 8. Anxiety. 9. Depression. 10. PTSD. PAST SURGICAL HISTORY 1. Right thoracotomy for benign lesion. 2. Right leg bypass surgery. 3. Above the knee amputation. 4. Multiple EGDs. 5. Embolization of the gastric artery. ALLERGIES Penicillin. Unit #: [id number] #: [id number] Patient: FRANCESCA RAI HOME MEDICATIONS 1. Neurontin. 2. Celexa. 3. Vistaril. 4. Toprol. 5. Lasix. 6. Percocet. 7. Spironolactone. 8. Protonix. 9. Bactrim. 10. Lisinopril. FAMILY HISTORY Coronary artery disease. SOCIAL HISTORY Patient lives with his . He smokes one pack per day since age 13. He used to be a heavy drinker of at least one pint of whiskey daily but, per his , he is drinking only minimally at this point. No history of drug abuse. REVIEW OF SYSTEMS Unable to obtain from the patient fully because he is confused. PHYSICAL EXAMINATION GENERAL: The patient is in no acute distress. VITAL SIGNS: Blood pressure is 110/62, respiratory rate 18, O2 saturation 98% on room air. HEENT: Atraumatic, normocephalic. PERRLA, EOMI. NECK: Supple. No JVD, no lymphadenopathy. CHEST: Decreased breath sounds bilaterally with fine rhonchi at the bases. HEART: S1, S2. No murmur, gallops or rubs. ABDOMEN: Soft, nontender. Bowel sound is positive. No hepatosplenomegaly. EXTREMITIES: Right above the knee amputation. SKIN: No rashes. VAT WASHER: Awake, alert but confused. No focal motor/sensory deficits. DIAGNOSTIC STUDIES LABORATORY: Creatinine 0.5, sodium 131, potassium 5.2, white blood count 17.6, hemoglobin 8.4, platelets 807. ASSESSMENT 1. Healthcare-associated pneumonia, likely Gram-negative/Gram-positive. 2. Toxic metabolic encephalopathy. 3. Leukocytosis. 4. Chronic anemia. 5. Hypertension. 6. Peripheral vascular disease. 7. History of alcoholism. PLAN 1. Hemodynamically stable on room air. However, his chest x-ray and CAT scan are concerning for pneumonia. 2. Will start patient on bronchodilator and mucolytics. 3. Will follow imaging tests to confirm the above findings. 4. Bronchoscopy with samples and lavage. Unit #: [id number] #: [id number] Patient: FRANCESCA RAI 5. I discussed antibiotics with ID and I will defer to them. 6. His altered mental status could be multifactorial secondary to pseudodementia from depression versus pneumonia versus history of alcoholism and polypharmacy. 7. Bronchodilator and Mucolytics. I discussed the case at length with Dr. Siegel, the patient's and the patient himself. Dictated by... Kenzie Ohara M.D. YULISSA/wilner TD: 11/08/2016 12:28 JOB #: [id number] CONSULTATION REPORT Page 1 of 1 X KENZIE RENEE MD CONSULTATION REPORT
--- NOTE | ~2016-11-05 | EKG ---
PATIENT: FRANCESCA RAI UNIT #: [id number] Ventricular Rate: 143 BPM Atrial Rate: 133 BPM QRS Duration: 104 ms Q-T Interval: 280 ms QTC Calculation(Bezet): 432 ms Calculated R [place]: -48 degrees Calculated T [place]: 94 degrees Diagnosis Line: Atrial fibrillation with rapid ventricular Diagnosis Line: response Diagnosis Line: Left anterior fascicular block Diagnosis Line: Minimal voltage criteria for LVH, may be normal Diagnosis Line: variant Diagnosis Line: ST and T wave abnormality, consider lateral ischemia Diagnosis Line: Abnormal ECG Diagnosis Line: When compared with ECG of 05-NOV-2016 22:28, Diagnosis Line: Atrial fibrillation has replaced Sinus rhythm Diagnosis Line: Vent. rate has increased BY 57 BPM Diagnosis Line: Confirmed by KELVIN ALEXANDER MD ([id number]) on 11/10/2016 Diagnosis Line: 4:52:49 PM INTERPRETING MD: BENJAMIN ERICKSON
--- NOTE | ~2016-11-05 | EKG ---
PATIENT: FRANCESCA RAI UNIT #: [id number] Ventricular Rate: 86 BPM Atrial Rate: 86 BPM P-R Interval: 178 ms QRS Duration: 86 ms Q-T Interval: 410 ms QTC Calculation(Bezet): 490 ms P [place]: 100 degrees Calculated R [place]: -18 degrees Calculated T [place]: 102 degrees Diagnosis Line: Normal sinus rhythm Diagnosis Line: Possible Lateral infarct , age undetermined Diagnosis Line: Abnormal ECG Diagnosis Line: When compared with ECG of 27-OCT-2016 09:32, Diagnosis Line: Significant changes have occurred Diagnosis Line: Confirmed by KELVIN ALEXANDER MD ([id number]) on 11/06/2016 Diagnosis Line: 10:06:33 PM INTERPRETING MD: BENJAMIN ERICKSON
--- NOTE | ~2016-11-05 | CO ---
Unit #: [id number] #: [id number] Patient: FRANCESCA HENDRICKS [id number] [facility]. [place], [place] [address] [id number] I MR#: [id number] NAME: FRANCESCA HENDRICKS ROOM: 329 Age: 56 Sex: M Admission Date: 11/06/2016 : 1960 Attending Physician: Janes Perales M.D. Primary Care Physician: No Primary Care Physician Consultation Date: 11/09/2016 CONSULTATION REPORT REASON FOR CONSULTATION Atrial fibrillation with rapid ventricular rate. HISTORY OF PRESENT ILLNESS The patient is a 56-year-old male with history of CHF, PAD, hypertension, who was admitted for confusion on 11/06/2016. He was recently hospitalized 10/27 through 11/02 for shortness of breath. The patient was treated with diuretics for CHF. He also had a left leg cellulitis at that time and was treated with antibiotics. He also had acute psychosis during that hospitalization that they felt was likely due to alcohol withdrawal. The patient is unable to provide much history today due to his confusion. The RN reports that the patient apparently last drank alcohol prior to his admission on 10/27/2016 and has been absent since. The patient was brought in by family due to increased confusion. He has a history of a GI bleed and is not on anticoagulation for that reason. He remained in sinus rhythm the beginning of his hospital course but then developed atrial fibrillation with RVR on 11/08/2016 evening. His heart rates run the 140s to 150s. He was started on an amiodarone drip as well as Lovenox. He has since converted to sinus rhythm. The patient denies chest pain or shortness of breath to me but is unable to tell me his first name, his location or the time. 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 PAST SURGICAL HISTORY He has a history of a thoracotomy for a benign mass, history of embolization of the gastric artery. SOCIAL HISTORY History of tobacco use. History of drinking one pint of whiskey daily. Again, this is reported the patient has not drank since 10/27/2016. History of marijuana use. This is all obtained through chart review. The patient is unable to provide a social history. FAMILY HISTORY Unobtainable due to patient's mental status. ALLERGIES Penicillins. Unit #: [id number] #: [id number] Patient: FRANCESCA HENDRICKS HOME MEDICATIONS 1. Citalopram 40 mg daily. 2. Vistaril 25 mg twice daily. 3. Toprol XL 25 mg twice daily. 4. Protonix 40 mg twice daily. 5. Percocet 10/325 mg one-half to one tab q.6 hours p.r.n. 6. Neurontin 100 mg t.i.d. 7. Colace 100 mg twice daily. 8. Lasix 20 mg daily. 9. Hibiclens one application to right AKA daily. 10. Aldactone 12.5 mg daily. 11. Potassium 10 mEq daily. 12. Bactrim DS one tab twice daily. 13. Lisinopril 2.5 mg daily. REVIEW OF SYSTEMS Unobtainable due to patient's mental status. He does deny chest pain or shortness of breath. PHYSICAL EXAMINATION GENERAL APPEARANCE: The patient is a well developed, thin, male who appears older than his stated age. He is currently confused and not oriented to person, place or time. He then has episodes where he seems a little less confused. VITAL SIGNS: Blood pressure 111/73. Heart rate 82 and regular. Respirations 22 and regular. Temperature 97.4. O2 sat 98% on room air. SKIN: No rashes or hives. HEENT: Head is normocephalic, atraumatic. There are no xanthelasma. Oral mucosa is pink and moist. NECK: No JVD or carotid bruits. SPINE: No scoliosis. CHEST: Clear to auscultation bilaterally with breath sounds decreased at the bases. No wheezes, rhonchi or rales. CORONARY: Regular rate and rhythm with no murmur, gallop, rub or lift appreciated. ABDOMEN: Soft, nontender, nondistended. Positive bowel sounds x4. The abdominal pulsation is not enlarged. EXTREMITIES: No clubbing, cyanosis or edema of left lower extremity. Right lower extremity is status post AKA with ischemic changes at the incision site. NEUROLOGIC: Awake, confused and not oriented. DIAGNOSTIC STUDIES LABORATORY: Sodium 130, potassium 2.7, chloride 98, CO2 21, BUN 9, creatinine 0.5 and glucose 106. WBC count 17, hemoglobin 8.4, hematocrit 25.9 and platelets are 843. IMAGING: Chest x-ray showed new blunting of the right lateral costophrenic angle suggesting small right pleural effusion. CARDIOVASCULAR: EKG from 11/08 shows atrial fibrillation with RVR and a ventricular rate of [address] abnormality. ASSESSMENT AND PLAN 1. Atrial fibrillation with RVR. 2. TME. 3. Possible healthcare-associated pneumonia. 4. Alcoholism. Unit #: [id number] #: [id number] Patient: FRANCESCA HENDRICKS 5. Peripheral arterial disease with right lower extremity bypass and subsequent right above-knee amputation. 6. Chronic obstructive pulmonary disease. 7. Anemia. 8. History of gastrointestinal bleeds bleeds. Mr. Hendricks was also evaluated by Dr. Zen Lin. We will continue the amiodarone drip for now as he is not quite alert enough to take oral medications. Once his mental status improves, this can be changed to oral amiodarone. We will continue Lovenox for now. He has a [id number] score of 2. Long-term AC is of concern given his recurrent GI bleeds. We will continue to monitor his blood count and chemistries. Dictated by... Allison Marroquin P.A.C. for Zen Lin M.D. DESTINY/josé TD: 11/10/2016 07:26 JOB #: [id number] CONSULTATION REPORT Page 1 of 1 X X CONSULTATION REPORT
--- NOTE | ~2016-11-05 | OR ---
Unit #: [id number] #: [id number] Patient: FRANCESCA RAI [id number] [address] [address] [id number] I MR#: [id number] NAME: FRANCESCA RAI ROOM: [facility] Date of Procedure: 11/09/2016 Admission Date: 11/06/2016 Surgeon: Kenzie Ohara M.D. : 1960 Attending Physician: Janes Perales M.D. Primary Care Physician: Leonor Primary Care Physician PROCEDURE OPERATIVE NOTE PROCEDURE PERFORMED Diagnostic and therapeutic bronchoscopy with bronchioalveolar lavage. INDICATION FOR PROCEDURE Pneumonia. FINDINGS Extensive amount of thick greenish secretions extending from the level of the yamileth to the right and lower main bronchi and lower lobes on both sides. ANESTHESIA MAC sedation. COMPLICATIONS None. PROCEDURE An informed consent was obtained from the patient after explaining the benefits and risks of this procedure. The patient was prepped and positioned in the appropriate way. Then he was inducted with propofol and then the bronchoscope was advanced through his oral cavity and at the level of his vocal cords 2% lidocaine was instilled and then the bronchoscope was advanced through the vocal cord into the trachea, which appeared normal except the lower part where extensive and copious amount of thick yellowish secretions were noted, which was aspirated then 1% lidocaine was instilled at the level of the yamileth. Then the bronchoscope was advanced into the right main bronchus and the right upper lobe, right lower lobe and right middle lobe were examined thoroughly and bronchioalveolar lavage was obtained from the right lower lobe. Mucus plugs were lavaged and cleaned properly and then the bronchoscope was retracted. Then we advanced into the left main bronchus and the left upper lobe, left lower lobe and lingula were examined thoroughly and also lavaged and washings were obtained from the left lower lobe. The bronchoscope was retracted out then and the patient tolerated his procedure well with no immediate complication. Dictated by... Kenzie Ohara M.D. Unit #: [id number] #: [id number] Patient: FRANCESCA RAI EA/gz TD: 11/11/2016 06:14 JOB #: [id number] PROCEDURE OPERATIVE NOTE Page 1 of 1 X KENZIE RENEE MD PROCEDURE OPERATIVE NOTE
--- NOTE | ~2016-11-05 | DS ---
Unit #: [id number] #: [id number] Patient: FRANCESCA RAI [id number] [facility]. [place], [place] [address] [id number] I MR#: [id number] NAME: FRANCESCA RAI ROOM: 329 Age: 56 Sex: M Admission Date: 11/06/2016 : 1960 Discharge Date: 11/19/2016 Attending Physician: Dante Saha M.D. Primary Care Physician: No Primary Care Physician DISCHARGE SUMMARY REASON FOR ADMISSION Toxic encephalopathy. HISTORY OF PRESENT ILLNESS/HOSPITAL COURSE Patient was originally admitted secondary to confusion, delirium, initially possibly related to polypharmacy. Neurontin, Vistaril initially were discontinued. Mentation somewhat improved. He had elevated white blood cell count, as well as mental status change. Consultation was placed to Dr. Ohara for reconsideration, as well as Dr. Sigala, infectious disease services. Ultimately, initial part of hospital course patient underwent bronchoscopy. Bronch cultures came back positive for gram-negative radha, likely related to Pseudomonas pneumonia. Patient was appropriately treated with IV antibiotics while here. He was also noted to have discoloration at the incision of right stump and/or ischemic changes/chronic necrotic changes. Consultation was subsequently placed to vascular services after evaluation. Please see their procedure note for complete details. Patient underwent vascular bypass surgery. Postoperatively he was placed on a heparin drip. He, otherwise, has been doing well. His INR today is 2.1, now therapeutic. He will be discharged on Coumadin 5 mg on a daily basis. Dr. Cevallos was also consulted from psychiatric services secondary to patient's acute agitation, as well as altered mental status. He felt as though patient was decisional. Patient did have runs of atrial fibrillation, rapid ventricular response. Cardiology services were consulted, as well. Patient was ultimately placed on amiodarone and will be given a prescription for at time of discharge. Overall, this patient's prognosis is guarded at best secondary to his poor insight into the disease process, as well as lack of appropriate outpatient followup. FINAL DISCHARGE DIAGNOSES 1. Ischemic/necrotic right [id number] amputation status post left common femoral artery to right profunda femoris artery bypass graft surgery. 2. Toxic encephalopathy, metabolic likely in origin, secondary to polypharmacy. 3. Gram-negative pneumonia, likely Pseudomonas, status post treatment. 4. Acute/chronic arterial insufficiency, peripheral vascular disease. 5. Stage (1)____ sacral decubitus ulcer, present on admission. Unit #: [id number] #: [id number] Patient: FRANCESCA RAI 6. Atrial fibrillation with rapid ventricular response. 7. Anxiety. 8. Depression. 9. Psychosis. 10. Alcohol abuse. 11. Chronic systolic heart failure, ejection fraction 45%. 12. Multifactorial anemia. 13. Prior history of severe gastrointestinal bleed with prior history of peptic ulcer disease. DISCHARGE MEDICATIONS 1. Hibiclens topical daily. 2. Percocet 10/325 one tablet p.o. q.6 p.r.n. 3. Protonix 40 mg p.o. b.i.d. 4. Coumadin 5 mg p.o. daily. 5. Tylenol 650 mg p.o. q.4 to 6 p.r.n. 6. Amiodarone 200 mg p.o. daily. 7. Celexa 40 mg p.o. daily. 8. Haldol 1 mg p.o. b.i.d. 9. Toprol XL 25 mg p.o. b.i.d. 10. Colace 100 mg p.o. b.i.d. 11. Lipitor 20 mg p.o. q.h.s. 12. Lisinopril 2.5 mg p.o. q.h.s. DISCHARGE CONDITION Stable. DISCHARGE DISPOSITION Home. FOLLOW UP 1. Follow up, Dr. Stevens, vascular services, 2 weeks. 2. Follow up, PCP, 7 to 10 days. Discharge hemoglobin 9. Discharge INR 2.1. Dictated by... Dante Saha M.D. RADHA/heidy TD: 11/20/2016 21:08 JOB #: [id number] DISCHARGE SUMMARY Page 1 of 1 X Dante Saha MD DISCHARGE SUMMARY
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
--- NOTE | ~2016-11-05 | EKG ---
PATIENT: FRANCESCA RAI UNIT #: [id number] Ventricular Rate: 86 BPM Atrial Rate: 86 BPM P-R Interval: 148 ms QRS Duration: 114 ms Q-T Interval: 412 ms QTC Calculation(Bezet): 493 ms P [place]: 13 degrees Calculated R [place]: -17 degrees Calculated T [place]: 91 degrees Diagnosis Line: Normal sinus rhythm Diagnosis Line: Left atrial enlargement Diagnosis Line: T wave abnormality, consider anterolateral Diagnosis Line: ischemia Baseline wander Prolonged QT Diagnosis Line: Abnormal ECG Diagnosis Line: When compared with ECG of 08-NOV-2016 20:08, Diagnosis Line: (unconfirmed) Diagnosis Line: Sinus rhythm has replaced Atrial fibrillation Diagnosis Line: Vent. rate has decreased BY 57 BPM Diagnosis Line: T wave inversion no longer evident in Lateral Diagnosis Line: leads Diagnosis Line: Confirmed by STEPHANIE DIANA MD ([id number]) on 11/16/2016 Diagnosis Line: 6:59:58 PM INTERPRETING MD: ADALGISA ERICKSON
--- NOTE | ~2016-11-05 | FU ---
[facility] Nutrition Therapy DATE: 11/14/16 Patient: FRANCESCA RAI Physician: GIO Address: [address] [facility] Room/Bed: [address] [place] [address], Zip: [place] [address] Admit Date: 11/06/16 Date of : 56 Height: Weight: 121 55 NUTRITION MONITORING/FOLLOW-UP: Reason: Nutrition follow-up Admitting dx: 56 y/o male admitted with delirium/confusion Anthropometrics: Ht: 71", admission wt: 113-121 lbs, current wt: 121 lbs, BMI: 17 (underweight; based on CBW), 70% IBW Labs: Reviewed; nothing significant Meds: IV Abx, colace, pepcid GI: BM 11/12 Skin: Stage II pressure ulcer coccyx, R AKA, no edema Estimated Nutrition Needs: Increased Assessment: [facility] [facility] chart reviewed, events noted. Physical chart unavailable for review at this time. Patient is now on a regular diet, which he is happy about. He is able to state he consumes < 50% of 2 meals a day. He states he is drinking strawberry Ensure QID but has not been receiving Eliu and does not wish to have it re-ordered. RD reviewed protein rich foods and the necessity for increased nutrient intake, patient agreed. RD encouraged pt to continue to increase oral intake (3 meals per day) and continue Ensure QID. See nutrition goals, dx and recs as stated below. Will continue to follow. Dx: 1) Increased nutrient needs r/t skin breakdown AEB stage II pressure ulcer coccyx, s/p R AKA - ACTIVE 2) Underweight r/t PMH AEB BMI 17, 70% IBW - ACTIVE Intervention: Continue current regimen Monitoring, Evaluation and Goals: 1. PO intake > 50% of meals - IN PROGRESS 2. Gradual weight gain towards a healthy BMI range - IN PROGRESS 3. Promote wound healing - IN PROGRESS 4. Labs WNL - MET No new goals [facility] Nutrition Therapy DATE: 11/14/16 Patient: FRANCESCA RAI Physician: GIO Address: [address] [facility] Room/Bed: [address] [place] [address], Zip: [place] [address] Admit Date: 11/06/16 Date of : [birth year] Height: Weight: 121 55 Monitor: per protocol, criteria to determine if above goals met Recommendations: 1. Continue regular diet with strawberry Ensure Enlive QID to provide adequate protein and kcals. Appreciate staff to assist with ordering meals and encouraging PO intake. 2. Wound care prn. 3. Please weigh q 3 days for monitoring purposes, as the patient is clinically underweight. Status: Mild-moderate nutrition risk Respectfully, Krystal Barnard RD, LD Food and Nutritional Services [facility] cc: client file
--- NOTE | ~2016-11-05 | OR ---
Unit #: [id number] #: [id number] Patient: FRANCESCA RAI [id number] [address] [place], [place] [address] [id number] I MR#: [id number] NAME: FRANCESCA RAI ROOM: [facility] Date of Procedure: 11/16/2016 Admission Date: 11/06/2016 Surgeon: Roberto Richards M.D. : 1960 Attending Physician: Dante Saha M.D. Primary Care Physician: Primary Care Physician No OPERATIVE REPORT PRIMARY CARE PHYSICIAN Dante Saha M.D. and Janes Perales M.D. PREOPERATIVE DIAGNOSES Drop in hemoglobin. The patient has not had any recurrent bleed clinically. He did initially presented with duodenal ulcer bleed several days ago. PROCEDURES PERFORMED Upper gastrointestinal endoscopy. POSTOPERATIVE DIAGNOSES 1. Partially healed duodenal ulcer in the bulb of the duodenum. 2. Mild to moderate prepyloric antral gastritis. This was in the form of erythema and erythematous streaks. 3. Rest of the examination up to third part of duodenum was normal. RECOMMENDATIONS The duodenal ulcer bleed has long resolved and the patient has no risk of rebleed. He can be restarted on heparin and regular diet. We will monitor his hemoglobin and hematocrit. SEDATION USED MAC. DESCRIPTION OF PROCEDURE Following detailed explanation of the potential risks and complications of an upper endoscopy, namely perforation, bleeding, and complications related to sedation, the patient was brought to GI lab and laid in the left lateral decubitus position. Lubricated tip of the Olympus video upper endoscope was passed through bite block into the proximal esophagus under direct vision. The entire esophageal mucosa was examined and appeared normal. Z-line was nicely demarcated, there being no esophagitis or hiatus hernia. The scope was then advanced into the gastric cavity and the latter was insufflated. Mucosa of the fundus, body, and antrum were examined and moderate prepyloric antral gastritis noted in the form of erythema, erythematous streaks, and erosions. Pylorus was intubated with visualization of the duodenal bulb. The latter was noted to have a healed duodenal ulcer posteriorly near the roof. The ulcer base was grayish white and ulcer was partially healed. Second and third part of duodenum were normal. No blood or blood residue was seen in the entire upper gastrointestinal tract. Upon withdrawal and retroflexion, incisura, Unit #: [id number] #: [id number] Patient: SKASKO,FRANCESCA cardia, and greater curve examined and no additional findings noted. The scope was then withdrawn in the distal esophagus. The entire esophageal mucosa was examined all the way up to pharynx. No additional findings noted. The patient tolerated the procedure without any postprocedure complications. Dictated by... Apple Kidd/kathleen TD: 11/16/2016 17:26 JOB #: [id number] OPERATIVE REPORT Page 1 of 1 X Roberto Richards MD X PROCEDURE OPERATIVE NOTE
--- NOTE | ~2016-11-05 | A ---
[facility] Nutrition Therapy DATE: 11/07/16 Patient: FRANCESCA RAI Physician: GIO Address: [address] [place] [address] Room/Bed: [address] [place] [address], Zip: [place] [address] Admit Date: 11/06/16 Date of : 56 Height: Weight: 113 51.3 NUTRITIONAL ASSESSMENT: REASON: LOW BMI PT IS 56 Y.O. MALE ADMITTED FOR DELIRIUM/CONFUSION PMH: PAD S/P (A) AKA IN SEPTEMBER 2016, ETOH ABUSE, SMOKER, CAD, COPD, ANXIETY, DEPRESSION, HTN, HLD, BAL, AFIB, PTSD, UPPER GI BLEED Anthropometrics: 6'2" (PER RD OBSERVATION: 5'11"), WT: 113-121# ( 51-55 KG), BMI: 15.8-16.9, 65-70%IBW Labs: CA+:8.2, ALB: 2.5, AST: 46, PHOS: 5.3 Meds: NACL, COLACE, PROTONIX I/O & Bowel function: 1020/225, IN CHART: PT REPORTS 9 DAYS SINCE LAST BM Skin Integrity: STAGE 2-3 PRESSURE ULCER COCCYX; SCROTUM ?FUNGAL INFECTION. PT IS S/P (R) AKA ON 09/2016 Estimated Nutrition Needs: INCREASED NUTRIENT NEEDS 2' WEIGHT LOSS NOTED, SKIN BREAKDOWN NOTED, PT UNDERWEIGHT Assessment: CHART REVIEWED AND EVENTS NOTED. PT SEEN FOR UNDERWEIGHT STATUS. PT SLIGHTLY CONFUSED AT TIMR OF VISIT REPORTING FAIR PO INTAKE AND APPETITE. THIS RD ENCOURAGED ADEQUATE KCAL AND PROTEIN INTAKE TO PREVENT SKIN BREAKDOWN AND PROMOTE GRADUAL WEIGHT GAIN, PT AGREED TO ENSURE SHAKES TID + BESSIE BID, RD TO ORDER. OF NOTE, RD ASSESSED PT ON 10/28/16. PT REPORTS UBW IS ~139-140#, NOTES LOSING WEIGHT PAST SEVERAL MONTHS. RD PROVIDED WRITTEN AND VERBAL HIGH KCAL AND HIGH PROTEIN + DIET EDUCATION FOR AMPUTATIONS. PT APPRECIATIVE OF THE DIET EDUCATION. PT REPORTED NO DIET QUESTIONS AT THIS TIME. RD TO FOLLOW. Dx: INCREASED NUTRIENT NEEDS R/T SKIN BREAKDOWN AEB STAGE 2-3 PRESSURE ULCER TO COCCYX, PT IS (R) AKA. 2. UNDERWEIGHT R/T PMH AEB LOW BMI OF 15-16, 65-70%IBW, S/P (R) AKA. Intervention: 1. HEALTHY HEART DIET 2. STRAW ENSURE SHAKES TID 3. BESSIE BID W/MEALS 4. MVI W/MINERAL Monitoring, Evaluation and Goals: [facility] Nutrition Therapy DATE: 11/07/16 Patient: FRANCESCA RAI Physician: GIO Address: [address] [facility] Room/Bed: [address] [place] [address], Zip: [place] [address] Admit Date: 11/06/16 Date of : 56 Height: Weight: 113 51.3 1. ORAL INTAKE; CONSUME/TOLERATE >50% OF MEALS 2. WEIGHTS; PROMOTE GRADUAL WEIGHT GAIN TOWARDS HEALTHY BMI; PREVENT WEIGHT LOSS 3. SKIN; PROMOTE SKIN HEALING 4. LABS; WNL MONITOR: -PO INTAKE/APPETITE -WEIGHTS -SUPPLEMENT INTAKE -EDUCATION NEEDS Recommendations: 1. PLEASE ORDER STRAW SHAKES TID W/MEALS 2. BESSIE BID W/MEALS TO PROMOTE SKIN HEALING 3. CONSIDER ADDING MVI W/MINERAL DAILY TO PT'S CURRENT MEDICATION REGIMEN 4. WOUND CARE TO FOLLOW 5. CONTINUE TO ENCOURAGE ADEQUATE PO AND SUPPLEMENT INTAKE 6. PLEASE PROVIDE WEIGHTS q 3 DAYS FOR MONITORING PURPOSES RD WILL F/U PER PROTOCOL PT IS MODERATELY COMPROMISED Respectfully, RACHEL ZIEGLER MS, RD, LD [employer] [facility] [employer] cc: client file
--- NOTE | ~2016-11-05 | TOC ---
Unit #: [id number] #: [id number] Patient: FRANCESCA RAI [id number] [address] [place], [place] [address] [id number] I MR#: [id number] NAME: FRANCESCA RAI ROOM: 329 Age: 56 Sex: M Admission Date: 11/06/2016 : 1960 Attending Physician: Janes Perales M.D. Primary Care Physician: No Primary Care Physician TRANSFER OF CARE SUMMARY PRIMARY DIAGNOSIS Toxic encephalopathy. SECONDARY DIAGNOSES 1. Gram-negative pneumonia, likely Pseudomonas. 2. Acute arterial insufficiency of the patient's right stump secondary to acute arterial atheroemboli. 3. Stage II/III sacral ulcer present on admission. 4. Paroxysmal atrial fibrillation with rapid ventricular rate. 5. Anxiety. 6. Depression. 7. Psychosis. 8. Alcohol abuse. 9. Alcohol dependence. 10. Hyperkalemia, resolved. 11. History of systolic heart failure with ejection fraction of 45%, clinically stable. 12. Hyponatremia, improving. 13. Metabolic acidosis, improving. 14. Thrombocytosis, likely reactive. 15. Anemia, multifactorial. 16. Recent hospitalization for severe GI bleed. HOSPITAL COURSE Patient was put in the hospital for some confusion and delirium and initially was thought possibly related to his medications so he had his Neurontin and Vistaril and pain medication stopped. His mentation improved somewhat but was still not normal for him and was intermittently oriented to situation, place and time, often only one of those but not always at the same time. Additionally he was noted to have some unexplained leukocytosis and was noted to have had some imaging abnormalities on his chest at his last hospitalization which were not felt to be infectious at that time but with his leukocytosis and altered mental status consultation was obtained with Dr. Aggie Ohara for reconsideration as well as Dr. Sigala with infectious disease. Patient underwent bronchoscopy and bronch cultures are growing back a Gram-negative radha which possibly could be pseudomonas at this time and patient is on antibiotics for that which were started after the bronchoscopy. He also empirically was started on vancomycin which could likely be stopped soon. Patient was also noted to have some dark areas of skin at the incision of his right stump at the closure of the rejdn-sos-yinq amputation that the patient recently had and so Dr. Queen with vascular surgery was consulted to reevaluate the stump. Ultrasound and CT angiogram with runoffs showed Unit #: [id number] #: [id number] Patient: FRANCESCA RAI severe atherosclerotic disease of the aorta with some associated disease of the renal arteries, mesenteric arteries and complete occlusion of multiple arteries going down to the stump. In fact, at least one of those arteries had what appeared to be an acute atheroemboli blocking sufficient blood flow to the right stump. As such, further vascular surgery is going to be needed on that leg and was initially planned on Sunday but had to be delayed due to an emergency vascular surgery at another hospital. Patient's surgery is currently planned for Sunday. Patient's mental status changes are possibly related to the toxic encephalopathy related to his ischemia of his right leg as well as the likely pneumonia but were quite unusual and questions for possible depression with pseudodementia or recurrence of his known history of psychosis. As such Dr. Cevallos was consulted who has seen the patient at multiple previous hospitalizations and is following along as well. Patient has been started on a low dose Haldol at his recommendation as well as continuing his Celexa. In addition trying to remove any medication that might be affecting his mental status, I did at least temporarily take him off of his proton pump inhibitor and switched him to an H2 fer. Presuming his mental status gets better I would switch him back to a twice daily proton pump inhibitor sometime in the next 7 to 14 days considering his history of GI bleed. Patient had a run of paroxysmal afib with RVR and cardiology was consulted. Patient was temporarily placed on an amiodarone drip and is being switched to p.o. amiodarone at this time. Final discharge summary will be dictated by the hospitalist taking care of the patient on the day of discharge. Dictated by... Janes Perales M.D. FLOWER/donato TD: 11/12/2016 20:29 JOB #: [id number] TRANSFER OF CARE SUMMARY Page 1 of 1 X Janes Perales MD X TRANSFER OF CARE SUMMARY
--- NOTE | ~2016-11-05 | CO ---
Unit #: [id number] #: [id number] Patient: FRANCESCA RAI [id number] [address] [place], [place] [address] [id number] I MR#: [id number] NAME: FRANCESCA RAI ROOM: 329 Age: 56 Sex: M Admission Date: 11/06/2016 : 1960 Attending Physician: Janes Perales M.D. Primary Care Physician: Primary Care Physician No Consultation Date: 11/08/2016 CONSULTATION REPORT REASON FOR CONSULTATION Peripheral arterial disease, recent fall and right above knee amputation stump incisional changes. HISTORY OF PRESENT ILLNESS The patient is a 48-year-old gentleman known to us with previous right above-knee amputation performed on 10/10/2016. Arteriogram done before amputation demonstrated significant arterial disease with no reconstructible options. He eventually went home after prolonged hospitalization including IR directed embolization for GI bleed. The IR embolization was likely done from the right groin. He was at home and at rehab and has had falls onto his right hhbwe-rob-htsv amputation stump. He has also had tremors and confusion which has made him presented back to the emergency room. He reports currently no pain in his right above-knee amputation stump. He notices no changes on the skin. He notices no change in the color or temperature of his leg. He currently reports eating his diet well and tolerating his medications without difficulty. We were asked to see him because of the changes of his right above-knee amputation stump. PAST MEDICAL HISTORY 1. LV dysfunction. 2. GI bleed. 3. Duodenal ulcer. 4. COPD. 5. Peripheral vascular disease. 6. Hyperlipidemia. 7. Hypertension. PAST SURGICAL HISTORY 1. Right leg bypass. 2. Arteriogram, lower extremity. 3. Right above knee amputation. 4. Multiple EGDs. 5. Embolization of the gastric artery. ALLERGIES Penicillin. MEDICATIONS Neurontin, Celexa, Vistaril, Toprol, Lasix, Percocet, spironolactone, Protonix, Bactrim, lisinopril. FAMILY HISTORY Unit #: [id number] #: [id number] Patient: FRANCESCA RAI Positive for coronary artery disease and hypertension. SOCIAL HISTORY He is a one bxvw-qil-ycw smoker. He is an occasional alcohol drinker, but used to be a heavy drinker. REVIEW OF SYSTEMS Per the HPI. The remainder of a 14-point review of systems appear negative. PHYSICAL EXAMINATION VITAL SIGNS: Temperature is 99, pulse 83, respirations 16, blood pressure 125/88. GENERAL APPEARANCE: The patient is a well-groomed, well-developed individual, appearing his stated age. No distress. Answers questions appropriately. HEENT: Pupils are equal and reactive to light and accommodation. Extraocular movements are intact. Mucous membranes are moist. No intraoral or intramucosal lesion or infections. NECK: Supple. No JVD. No carotid bruits bilaterally. Trachea is midline. Thyroid is midline without enlargement. HEART: S1 and S2. Regular rate and rhythm. No murmurs. LUNGS: Clear to auscultation bilaterally. No wheezing or crackles. ABDOMEN: Soft, nontender, and nondistended. Positive bowel sounds. No abdominal masses or hernias are noted. VASCULAR: Positive radial pulses bilaterally. Faintly palpable right and left femoral pulses. Left pedal pulse is nonpalpable. SKIN: There are ischemic changes to the right above-knee amputation incision both medially and laterally with areas of thin eschar. There is cyanosis and some mottling of the distal right above-knee amputation stump, roughly from the incision line extending cephalad 8 cm. No blebs or blisters. MUSCULOSKELETAL: No soft tissue masses or bony deformities. AK stump as discussed. Left lower extremity, no bony protuberances or abnormalities. LYMPHATICS: No lymphadenopathy of the cervical or femoral chain. PSYCHIATRIC: Alert and oriented x3. NEUROLOGIC: Cranial nerves II through XII are intact and 5/5 strength in all extremities. DIAGNOSTIC STUDIES LABORATORY RESULTS: INR 1.0. White count 17.6, platelets 807, hemoglobin 8.4. IMPRESSION AND PLAN Mr. Francesca Enriquez has a history of peripheral arterial disease, recent fall, and right hcdyj-qai-jdsu amputation stump with ischemic changes. Mr. Enriquez will have ultrasound of the right lower extremity vasculature to evaluate flow into the femoral artery and profunda femoral artery. Due to previous use of the right femoral artery likely from the IR embolization of the gastric artery, he may have issues with inflow to the right leg. This could be hampering healing and may require surgical intervention and/or higher level amputation of the right lower extremity. We will continue to follow along the way for testing results. Continue the remainder of his current medical care. Thank you for having us to see Mr. Enriquez. If you have any questions, do not hesitate to contact me. Unit #: [id number] #: [id number] Patient: FRANCESCA RAI Dictated by... Apple Handy/kathleen TD: 11/09/2016 01:03 JOB #: [id number] CONSULTATION REPORT Page 1 of 1 X Mariza Queen MD X CONSULTATION REPORT
--- NOTE | ~2016-11-05 | HP ---
Unit #: [id number] #: [id number] Patient: FRANCESCA RAI [id number] [address] [place], [place] [address] [id number] I MR#: [id number] NAME: FRANCESCA RAI ROOM: [address]3867 Age: 56 Sex: M Admission Date: 11/06/2016 : 1960 Attending Physician: Janes Perales M.D. Primary Care Physician: No Primary Care Physician HISTORY AND PHYSICAL CHIEF COMPLAINT Confusion/delirium. HISTORY This 56-year-old male with LV dysfunction, PAF, hypertension, peripheral vascular disease, is admitted for confusion. The patient was most recently admitted to this facility 10/27 through 11/02/2016 for left leg cellulitis, scrotal fungal infection, possibly psychosis related to alcohol withdrawal, and possible congestive heart failure, possible pneumonia. After his discharge four days ago, his family told ER physician that he has become somewhat confused, attempting to eat food without utensils. He was brought back to this emergency department where he does seem to be in a delirium. Apparently no alcohol since his discharge. When I speak with the patient, he tends to mumble, but denies any problems. He states that he is "pissed off" at his . He is a bit tremulous on exam. He does appear to be a bit dry. I do note that multiple medications were added at the time of this discharge. Family was concerned that some of these medications may be contributing to his confusion. In the ER, labs were performed. His potassium is 5.2, his BUN is 16, creatinine 1.3 up from a BUN of 8, creatinine of 0.6 several days ago. He as bolused with 2 L of saline. The rest of his workup is fairly unremarkable in terms of a source of his delirium. PAST MEDICAL HISTORY 1. LV dysfunction, ejection fraction 45-50% with paroxysmal atrial fibrillation. Patient is not anticoagulated due to previous admission for GI bleeding. 2. Upper GI bleed, admitted in September. Patient required embolization of a duodenal ulcer and multiple transfusions. 3. COPD. 4. Peripheral vascular disease, status post bypass surgery of the right leg and ultimately right AKA 09/2016. 5. Hyperlipidemia. 6. Hypertension. 7. Anxiety/depression/post-traumatic stress disorder. 8. Right thoracotomy for benign lesion. 9. Right leg bypass surgery and ultimately a right above the knee amputation 10/10/2016. ALLERGIES Listed as penicillin but patient has taken Zosyn in the past without Unit #: [id number] #: [id number] Patient: FRANCESCA RAI so he is not allergic to penicillin. HOME MEDICINES Patient was discharged several days ago on: 1. Neurontin 100 mg t.i.d. 2. Celexa 40 mg daily. 3. Vistaril 25 mg b.i.d. 4. NicoDerm patch. 5. Toprol XL 25 mg b.i.d. 6. Colace b.i.d. 7. Lasix 40 mg daily. 8. Chlorhexidine 4% topically to the right AKA daily. 9. Percocet 10 0.5 to 1 tablet q.6 hours as needed. 10. Spironolactone 25 mg daily. 11. Protonix 40 mg b.i.d. 12. Potassium 10 mEq daily. 13. Bactrim DS which the patient is now about finished with. 14. Diflucan 200 mg daily, again patient is about done with this medicine. 15. Lisinopril 2.5 mg daily. FAMILY HISTORY CAD. SOCIAL HISTORY The patient lives with his . Smoked a pack per day of tobacco since age 13. I believe he is still smoking a few cigarettes from what I can determine from his history. Was drinking a pint of whiskey daily but family told the ER physician the patient stopped drinking recently. REVIEW OF SYSTEMS Impossible to obtain as patient, himself, mumbles a history, is asking for an extra blanket and asking for ice chips. PHYSICAL EXAMINATION GENERAL: Thin 56-year-old, pale male, currently in no acute distress. VITAL SIGNS: Temperature 98.8, pulse 86, respirations 21, blood pressure 108/66. O2 saturation is 97% on room air. HEENT: Eyes PERRLA. Extraocular muscles are intact. Pharynx - very dry mucosal membranes. NECK: Supple without adenopathy or thyromegaly. CHEST: Clear. CARDIAC: Normal S1 and S2 without S3, S4 or murmur. ABDOMEN: Bowel sounds are somewhat hyperactive but abdomen is nontender. There may be mild hepatomegaly on exam but no tenderness. EXTREMITIES: Right AKA with yusuf still in place. Some bruising noted by these yusuf. The incision, however, looks to be clean and dry to my inspection. Left leg - diminished pedal pulse noted. No edema, no ulcers on the foot. NEUROLOGIC EXAM: The patient is awake, he is alert. He is oriented to the fact that he is in the hospital, person and year. His speech tends to be a bit mumbled and he is hard to understand because he is speaking so quietly. He does seem to be a bit delirious/confused but he follows commands appropriately. His cranial nerves are intact. His speech is fluent. He has equal strength throughout but is somewhat tremulous on exam. DIAGNOSTIC STUDIES Unit #: [id number] #: [id number] Patient: FRANCESCA RAI LABORATORY: Admission labs - hematocrit is 26.6 which is stable, white blood count is 14.7, platelet count is 864. Was high last admission but was noted to be normal in September so this could be reactive. Coags normal. SMA-12 - sodium 133, potassium 5.2, chloride 99, albumin is 2.5, normal lipase and amylase. Lactic acid is normal. Urinalysis negative. IMAGING: Chest x-ray is unchanged. COPD, fibrosis, scattered areas of infiltrates which were noted previously and some chronic pleural calcification. Head CT is negative. Mild diffuse chronic changes, chronic bibasilar ganglia, lacunar infarcts. CARDIOVASCULAR: EKG - normal sinus rhythm, rate 86, peaked T waves. T wave inversion AVL. ASSESSMENT 1. Likely delirium which may be, in part, related to medicines. Patient looks to be a little bit dry. Will certainly check an alcohol level and monitor for any alcohol withdrawal. Will also check a urine tox screen. 2. Mildly elevated potassium, on spironolactone and potassium. 3. Mild dehydration. 4. Mild LV dysfunction, ejection fraction 45-50%. 5. History of paroxysmal atrial fibrillation. Currently, patient is in a normal sinus rhythm. He is not anticoagulated due to previous upper GI bleed in September. 6. Peripheral vascular disease, status post right AKA. 7. Essential hypertension. 8. History of alcohol abuse. 9. Anxiety/depression/PTSD. 10. Peptic ulcer disease requiring embolization of duodenal ulcer in September. 11. COPD/tobacco. PLANS 1. Check alcohol level, urine tox screen, ammonia level, thyroid function tests and B12 level. 2. Patient received IV fluids in the ER. At this time, will Hep-lock, hold Lasix and discontinue spironolactone and potassium. 3. Hold some of the central acting medications such as Neurontin, Vistaril and Percocet. 4. Further workup depending on above. Dictated by Melonie Trujillo M.D. AML/df TD: 11/06/2016 07:29 JOB #: [id number] Unit #: [id number] #: [id number] Patient: FRANCESCA RAI HISTORY AND PHYSICAL Page 1 of 1 X Melonie Trujillo MD X HISTORY AND PHYSICAL
--- NOTE | ~2016-11-05 | CR72 ---
[facility] A Service of [facility] & [facility] RADIOLOGY TEXT RESULTS PATIENT: FRANCESCA RAI LOCATION: [facility] 329-01 : 56 UNIT #: [id number] AGE: [address]: Janes Perales MD SEX: M ORDER DR: [id number] [facility] [address] [place], [place] [address] [id number] I MR#: [id number] Acc #: [id number] NAME: FRANCESCA RAI : 1960 SEX: M STUDY DATE/TIME: 11/05/2016 23:05 UNIT: [facility] ROOM: [id number] STUDY DESCRIPTION: CR Chest Single View Portable Attending Physician: Janes Perales M.D. Ordering Physician: Osorio Mojica M.D. Primary Care Physician: No Primary Care Physician MEDICAL IMAGING REPORT This report is preliminary unless electronic signature is present EXAM AP portable chest 11/05/2016. HISTORY 56-year-old male in the ED complaining of 1-day history of shortness of air, cough and weakness. TECHNIQUE AP portable upright chest x-ray. FINDINGS Airspace infiltrates are scattered throughout the mid and lower lungs, unchanged since 10/27/2016. This is superimposed on a background of advanced pulmonary emphysema as well as multifocal pulmonary fibrosis including regions of honeycomb fibrosis. Chronic pleural calcification surrounds portions of the right lung base. Postoperative changes of right upper lung resection surgery with pulmonary surgical yusuf. All of the above findings are unchanged since the previous study of 10/27/2016 and were best demonstrated on chest CT of the same day. Heart size normal. No visible pneumothorax or pleural effusion. IMPRESSION 1. Multifocal pulmonary infiltrates in the mid and lower lungs superimposed on a background severe chronic lung disease as detailed above. 2. No new finding since 10/27/2016. 3. Previous right upper lung resection surgery. Dictated by... Yo Hopkins M.D. THIS IS AN ELECTRONICALLY VERIFIED REPORT Yo Hopkins M.D. at 11/06/2016 8:56 PM [facility] A Service of [facility] & [facility] RADIOLOGY TEXT RESULTS PATIENT: FRANCESCA RAI LOCATION: A 329-01 : 56 UNIT #: [id number] AGE: [address]: Janes Perales MD SEX: M ORDER DR: Juli TD: 11/06/2016 08:31 JOB #: [id number] MEDICAL IMAGING REPORT Page 1 of 1 COPY
--- NOTE | ~2016-11-05 | CT14 ---
[facility] A Service of [facility] & [facility] RADIOLOGY TEXT RESULTS PATIENT: FRANCESCA RAI LOCATION: [facility] 329-01 : 56 UNIT #: [id number] AGE: [address]: Janes Perales MD SEX: M ORDER DR: [id number] [facility] [address] [place], [place] [address] [id number] I MR#: [id number] Acc #: [id number] NAME: FRANCESCA RAI : 1960 SEX: M STUDY DATE/TIME: 11/09/2016 19:08 UNIT: A U ROOM: [facility] STUDY DESCRIPTION: CT Angio Abdomen and Pelvis Attending Physician: Janes Perales M.D. Ordering Physician: Janes Perales M.D. Primary Care Physician: No Primary Care Physician MEDICAL IMAGING REPORT This report is preliminary unless electronic signature is present EXAM CT angiogram of the abdomen and pelvis with bilateral lower extremity runoff. INDICATION This patient has a nonhealing wound of the right lower extremity. He has had a prior right above-knee amputation and had an arterial Doppler today which showed no flow within the right femoral artery. This is a preoperative examination prior to thrombectomy/endarterectomy tomorrow. TECHNIQUE Axial CT images were obtained from the dome of the diaphragm through both lower extremities following the administration of intravenous contrast material. Following this, 3-D reformatted images were obtained. This CT exam was performed with one or more of the following radiation dose reduction techniques: automatic exposure control, adjustment of mA and/or kV according to patient size, and iterative reconstruction. FINDINGS This patient has advanced background emphysematous changes. Calcified pleural plaques are seen at the right lung base. Patient has some areas of consolidation identified within the lungs. These were actually present on the prior exam from October 27, 2016, but appear improved. I would suggest continued followup until complete resolution, however, given advanced background emphysematous changes. Visualized portions of the thoracic aorta appear within normal limits. 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 The superior mesenteric artery shows some plaque within its more distal aspects, which I think does result in some moderate narrowing. There is a single right renal artery. There are 2 left renal arteries. There is probably some at least mild narrowing involving the main left renal artery, although full assessment is limited due to significant STS. [facility] A Service of [facility] & [facility] RADIOLOGY TEXT RESULTS PATIENT: FRANCESCA RAI LOCATION: [facility] 329-01 : 56 UNIT #: [id number] AGE: [address]: Janes Perales MD SEX: M ORDER DR: calcified plaque. Inferior mesenteric artery is patent. Patient is noted to have some areas of ulcerated plaque within the infrarenal abdominal aorta, some of which have a somewhat pedunculated appearance and certainly could reflect the source of this patient's occlusion. There is complete occlusion of the right common iliac artery, as well as the right external iliac artery. Right internal iliac artery does have some reconstitution distally. Left common iliac artery is widely patent as is the left internal iliac artery and left external iliac artery. The right common femoral artery is occluded. Right profunda femoris artery is occluded. Right superficial femoral artery is occluded. Right common femoral to above knee popliteal artery bypass graft. This patient is status post right above-knee amputation. The patient is noted to have some eccentric plaque within the left common femoral artery, probably resulting in some mild narrowing. Left profunda femoris artery does have some thrombus within it, although there is some very distal reconstitution. Left superficial femoral artery is patent, although it does show multifocal disease which becomes more confluent distally. It does, however, remain patent. Extensive eccentric calcified plaque is seen within the left popliteal artery, particularly at the level of the popliteal fossa. I do think there is three-vessel continuous runoff to the left foot. No focal hepatic lesions are identified. Spleen appears unremarkable. Stomach and proximal small bowel are within normal limits. There is heterogeneous enhancement of the right kidney which I think could reflect some infarction, although certainly correlation with urinalysis and urine cultures is suggested as pyelonephritis would be a consideration, although considered less likely. I do not see any free fluid or adenopathy within the abdomen. Extensive fecal burden is seen throughout the colon. Urinary bladder is within normal limits. Prostate gland contains some dystrophic calcifications. Small amount of free fluid is seen within the pelvis which certainly could be reactive. The patient does appear to be osteoporotic. Compression deformity is noted at L1, unchanged when compared to the October 07, 2016 examination. IMPRESSION 1. This patient has extensive atherosclerotic plaque seen within the abdominal aorta within the infrarenal segment. Some of the plaque appears pedunculated and potentially may be the source of this patient's known thromboembolic event. 2. Complete occlusions of the right common iliac artery, right external iliac artery, right common femoral artery, right profunda femoris artery, right superficial femoral artery as well as a right common femoral to above knee popliteal artery bypass graft. The patient also has a proximal occlusion of the right profunda femoris artery but it reconstitutes. There is also reconstitution of the distal right internal iliac artery. This has the appearance of acute STS. [facility] A Service of [facility] RADIOLOGY TEXT RESULTS PATIENT: FRANCESCA RAI LOCATION: [facility] 329-01 : 56 UNIT #: [id number] AGE: [address]: Janes Perales MD SEX: M ORDER DR: thrombus rather than chronic. 3. 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 There is some additional stenosis suspected within the mid superior mesenteric artery, although it remains patent. 4. Suspected at least mild stenosis of the main left renal artery. 5. Somewhat heterogeneous enhancement of the right kidney may reflect some evolving infarction. Pyelonephritis would be another consideration, although considered less likely. Correlation with urinalysis and urine cultures is recommended. 6. Small amount of free fluid identified within the pelvis, likely reactive. 7. Advanced background emphysematous changes as well as multiple scattered nodular-appearing infiltrates seen throughout the lungs. These actually appear improved when compared to the prior CT angiogram from October 27, 2016, but followup until complete resolution is recommended. Dictated by... Beatriz Sotomayor M.D. THIS IS AN ELECTRONICALLY VERIFIED REPORT Beatriz Sotomayor M.D. at 11/10/2016 5:48 PM AFF/tmw TD: 11/10/2016 12:52 JOB #: [id number] MEDICAL IMAGING REPORT Page 1 of 1 COPY
--- NOTE | ~2016-11-05 | CO ---
Unit #: [id number] #: [id number] Patient: FRANCESCA HENDRICKS [id number] [address] [place], [place] [address] [id number] I MR#: [id number] NAME: FRANCESCA HENDRICKS ROOM: 329 Age: 56 Sex: M Admission Date: 11/06/2016 : 1960 Attending Physician: Dante Saah M.D. Primary Care Physician: Primary Care Physician No Consultation Date: 11/13/2016 CONSULTATION REPORT JOB NOTE: CC: HIPS PHYSICIAN REASON FOR CONSULTATION Sacral ulcer. Thank you very much for asking us to see Ms. Hendricks. HISTORY OF PRESENT ILLNESS He is a 56-year-old white male, who is admitted with altered mental status. He was found to have severe peripheral vascular disease and actually underwent a right above-knee amputation recently. He was found to have a sacral area breakdown. We were asked to see at this time for further evaluation. ALLERGIES Penicillin. MEDICATIONS Please see med rec sheet. PAST SURGICAL HISTORY Right above-knee amputation, bypass graft right leg, right upper lung resection. SOCIAL HISTORY Positive alcohol use. Positive tobacco use. PAST MEDICAL HISTORY Heart disease, hypertension, peripheral vascular disease, anxiety, atrial fibrillation, depression. IMMUNIZATION STATUS Unknown. REVIEW OF SYSTEMS Negative except for above. PHYSICAL EXAMINATION GENERAL: Well-developed, well-nourished white male, in no apparent distress. VITAL SIGNS: Afebrile. Vital signs stable. NECK: Supple. No thyromegaly or adenopathy. BACK: No CVA or spinous tenderness. ABDOMEN: Flat, soft, nontender. Unit #: [id number] #: [id number] Patient: FRANCESCA HENDRICKS SACRAL: Examination of the sacrum reveals a superficial area of breakdown, 2 x 1-1/2 cm in size. It does not appear to have any deep necrosis. There is no surrounding erythema, induration, or drainage. IMPRESSION A 56-year-old white male with superficial area breakdown. Currently, the patient is having pressure relief and regular wound care. Will follow expectantly. We will see if we were able to have Dr. Brink of the wound care service to see the patient as well. Dictated by... Rubén Croft M.D. CARMEN/kathleen TD: 11/14/2016 20:57 JOB #: [id number] CC: [facility] CONSULTATION REPORT Page 1 of 1 X Rubén Croft MD CONSULTATION REPORT
--- NOTE | ~2016-11-05 | OR ---
Unit #: [id number] #: [id number] Patient: FRANCESCA RAI [id number] [address] [place], [place] [address] [id number] I MR#: [id number] NAME: FRANCESCA RAI ROOM: [facility] Date of Procedure: 11/13/2016 Admission Date: 11/06/2016 Surgeon: Mariza Queen M.D. : 1960 Attending Physician: Dante Saha M.D. 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 PREOPERATIVE DIAGNOSES Thrombosis, right common iliac artery through right common femoral artery with ischemia of right pasqs-pes-anvv amputation stump. POSTOPERATIVE DIAGNOSES Thrombosis, right common iliac artery through right common femoral artery with ischemia of right mkubm-avm-emxi amputation stump. PROCEDURE PERFORMED Left common femoral artery to right profunda femoris artery bypass with 6 mm ringed reinforced Propaten graft. ANESTHESIA General. COMPLICATIONS None. ESTIMATED BLOOD LOSS 100 mL. SPECIMEN None. INDICATIONS FOR PROCEDURE The patient is a 56-year-old gentleman with significant peripheral arterial disease, who recently had a right olkzv-umg-vftt amputation performed 1 month ago. He had falls at home and was readmitted to the hospital for other medical reasons. He was identified to have an ischemic stump on the right AKA. A CTA was performed, which showed occlusion of the common iliac artery as well as external iliac artery and right common femoral artery. He was recommended a femoral to femoral bypass to improve flow and preserve as much of the stump as possible. He understood the planned procedure including the associated risks, and benefits and wishes to proceed. DESCRIPTION OF PROCEDURE The patient was taken to the operating room and placed on the operating table in supine position. Following general anesthesia, the patient's Unit #: [id number] #: [id number] Patient: FRANCESCA RAI lower abdomen, pelvis, and legs were circumferentially prepped and draped in normal standard manner. In the left groin, a longitudinal incision was created, taken down through subcutaneous tissues with cautery. The common femoral artery was identified and dissected free circumferentially to the level of the inguinal ligament and looped with vessel loops. The origin of the superficial femoral artery and profunda femoris arteries were also identified and dissected free circumferentially and looped with vessel loops. Overlying the inguinal ligament, a suprafascial tunnel was then created to the midline of the lower abdomen and a longitudinal incision was then created in the right groin and taken down through subcutaneous tissues with cautery. Continued dissection deeply identified the patient's previously created femoral to popliteal artery bypass and further dissection laterally identified the profunda femoris artery. The profunda femoris artery was then able to be dissected free from its origin at the common femoral artery and further dissection distally was performed for roughly 10 to 15 cm. The artery looked to be of adequate quality for creation of a bypass distally at the 1 cm or so of the artery. Overlying the right inguinal ligament of the suprafascial tunnel was then further created from the right side to the midline and then completely created through the midline. A 6 mm ringed reinforced Propaten graft was then tunneled into the suprafascial tunnel. The patient was given heparin 100 units/kg and allowed to circulate for 3 minutes. ACT measurements were followed and maintained above 250 seconds with further boluses of heparin as needed. The left common femoral artery, profunda femoris and superficial femoral arteries were then clamped. Longitudinal arteriotomy was created and extended with Bartlett scissors. The PTFE graft was beveled and anastomosis to the femoral artery was performed with a 6-0 Prolene suture in a running manner. Upon completion, the clamps were removed and flow was restored. Excellent arterial inflow was noted in the graft. The graft was flushed with heparinized saline and then clamped. The right profunda femoris artery was then clamped proximally and distally and a longitudinal arteriotomy was created and extended distally with Bartlett scissors. The lumen of the artery was good with good back bleeding identified. The PTFE graft was cut to length and beveled and anastomosis to the artery was performed with a 6-0 Prolene suture in a running manner. Prior to completion of anastomosis, forward and backbleeding of the vessel was performed as well as forward bleeding of the graft. No debris was noted in the anastomosis was then completed. All clamps were then removed and flow was restored. Excellent signal was noted in the distal profunda femoris artery. The patient was given protamine to reverse the heparin. Evaluation of both groin incisions revealed some subcutaneous oozing controlled with cautery. No further bleeding was then identified. The wounds were then closed in 2 layers with a deep running 2-0 Vicryl suture, subcutaneous running 3-0 Vicryl suture, and 4-0 Monocryl suture for skin. The incisions were washed, dressings applied, and the procedure was terminated. The patient tolerated the procedure well and was taken to the recovery room in stable condition. All needle, sponge, and instrument counts were correct at the end of the case. Dictated by... Apple Handy/kathleen Unit #: [id number] #: [id number] Patient: FRANCESCA RAI TD: 11/16/2016 05:28 JOB #: [id number] OPERATIVE REPORT Page 1 of 1 X Mariza Queen MD X PROCEDURE OPERATIVE NOTE
--- NOTE | ~2016-11-05 | CR71 ---
[facility] A Service of [facility] RADIOLOGY TEXT RESULTS PATIENT: FRANCESCA RAI LOCATION: [facility] 329-01 : 56 UNIT #: [id number] AGE: [address]: Janes Perales MD SEX: M ORDER DR: [id number] [facility] [address] [place], [place] [address] [id number] I MR#: [id number] Acc #: [id number] NAME: FRANCESCA RAI : 1960 SEX: M STUDY DATE/TIME: 11/08/2016 12:08 UNIT: [address] ROOM: [facility] STUDY DESCRIPTION: CR Chest Single View Attending Physician: Janes Perales M.D. Ordering Physician: Leonrada Ohara M.D. Primary Care Physician: Primary Care Physician No MEDICAL IMAGING REPORT This report is preliminary unless electronic signature is present EXAM Portable chest INDICATION Shortness of breath, confusion and weakness today. COMPARISON 11/05/2016 FINDINGS There is blunting of the right lateral costophrenic angle suggesting a small right pleural effusion. Background emphysema. Postoperative changes of the right lung. Stable hazy density in the right base. No new infiltrates in the lungs since the previous study. Heart size stable. IMPRESSION New blunting of the right lateral costophrenic angle suggesting small right pleural effusion. Dictated by... Lawrence Goodman M.D. THIS IS AN ELECTRONICALLY VERIFIED REPORT Lawrence Goodman M.D. at 11/08/2016 5:28 PM Jarvis TD: 11/08/2016 13:56 JOB #: [id number] MEDICAL IMAGING REPORT Page 1 of 1 COPY
--- NOTE | ~2016-11-05 | CT71 ---
[facility] A Service of [facility] RADIOLOGY TEXT RESULTS PATIENT: FRANCESCA RAI LOCATION: [facility] 329-01 : 56 UNIT #: [id number] AGE: [address]: Janes Perales MD SEX: M ORDER DR: [id number] [place] [id number] [facility]. [place], [place] [address] [id number] I MR#: [id number] Acc #: [id number] NAME: FRANCESCA RAI : 1960 SEX: M STUDY DATE/TIME: 11/06/2016 0:58 UNIT: [facility] ROOM: 92565 STUDY DESCRIPTION: CT Head Wo Contrast Attending Physician: Janes Perales M.D. Ordering Physician: Osorio Mojica M.D. Primary Care Physician: No Primary Care Physician MEDICAL IMAGING REPORT This report is preliminary unless electronic signature is present EXAM CT head, noncontrast, 11/06/2016. HISTORY 56-year-old male in the ED with a 3-day history of weakness and confusion. Shortness of air. TECHNIQUE CT examination of the head without IV contrast. This CT exam was performed with one or more of the following radiation dose reduction techniques: automatic exposure control, adjustment of mA and/or kV according to patient size, and iterative reconstruction. FINDINGS No acute intracranial abnormality is identified. Mild generalized cerebral cortical atrophy. Mild diffuse low-attenuation white matter changes, nonspecific, but likely related to chronic small vessel disease. Old lacunar infarcts in the left lentiform nucleus, bilateral thalami and right anterior internal capsule. No evidence of intracranial hemorrhage, mass, mass effect, cerebral edema, hydrocephalus or additional abnormality. IMPRESSION 1. No acute intracranial abnormality. 2. Mild diffuse chronic changes as noted above. Bilateral chronic basal ganglia lacunar infarcts. [facility] A Service [facility] RADIOLOGY TEXT RESULTS PATIENT: FRANCESCA RAI LOCATION: [facility] 329-01 : [birth year] UNIT #: [id number] AGE: [address]: Janes Perales MD SEX: M ORDER DR: Dictated by... Yo Hopkins M.D. THIS IS AN ELECTRONICALLY VERIFIED REPORT Yo Hopkins M.D. at 11/06/2016 8:56 PM RGW/marcos TD: 11/06/2016 09:22 JOB #: [id number] MEDICAL IMAGING REPORT Page 1 of 1 COPY
[~2016-11-05 22:10] MED LIST changes: +ALDACTONE PO; +BACTRIM DS TAB1 EACH PO; +DIFLUCAN200 MG PO; +DOCUSATE SODIU100 MG PO; +HIBICLENS 4% L120 ML TOP; +KCL PO; +LASIX20 MG PO; +LISINOPRIL2.5 MG PO; +NEURONTIN100 MG PO; +NICOTINE PATCH1 EACH TD
[2016-11-05 23:11] LABS: BASOPHIL% 0.3 % (0-2.5); EOSINOPHIL% 0.1 % (0.0-7.0); HEMATOCRIT 26.6 % (38.0-50.0); HEMOGLOBIN 8.8 gm/dL (13.0-16.0); LYMPHOCYTE% 13.8 % (17.0-45.0); MEAN CELL VOLUME 86.2 FL (83-96); MEAN CORPUSCULAR HEMOGLOBIN 28.4 PG (28-34); MEAN PLATELET VOLUME 6.7 FL (6.5-11.5); MONOCYTE# 1.8 X10e3 (0-1.0); NEUTROPHIL# 10.8 X10e3 (1.5-7.1); NEUTROPHIL% 73.8 % (40-75); PLATELET COUNT 864 X10e3 (140-420); RED BLOOD COUNT 3.09 X10e (3.90-5.60); WHITE BLOOD COUNT 14.7 X10e3 (4.0-10.5)
[2016-11-05 23:13] LABS: DIFF IND NO
[2016-11-05 23:25] LABS: PARTIAL THROMBOPLASTIN TIME 30.4 SECONDS (23.5-31.3); PROTHROMBIN TIME (PATIENT) 10.9 SECONDS (10.0-11.7)
[2016-11-05 23:52] LABS: ALBUMIN SERUM 2.5 g/dL (3.5-5.0); ALKALINE PHOSPHATASE 92 U/L (32-92); ALT (SGPT) 27 U/L (10-40); AMYLASE 14 U/L (0-46); AST (SGOT) 46 U/L (10-42); BILIRUBIN,TOTAL 0.4 mg/dL (0.2-2.0); BLOOD UREA NITROGEN 16 mg/dL (9-23); CALCIUM SERUM 8.7 mg/dL (8.4-10.2); CARBON DIOXIDE 24 mmol/L (22-31); CHLORIDE 99 mmol/L (100-111); CREATININE SERUM 1.3 mg/dL (0.6-1.4); GLOM FILT RATE Estimated 60.2 mL/min (>60); GLUCOSE FASTING 109 mg/dL (70-110); LIPASE 10 U/L (22-51); MAGNESIUM 2.1 mg/dL (1.6-3.0); PHOSPHOROUS 5.3 mg/dL (2.5-4.6); POTASSIUM 5.2 mmol/L (3.5-5.1); PROTEIN TOTAL SERUM 7.6 g/dL (6.0-8.3); SODIUM 133 mmol/L (135-145)
[2016-11-05 23:55] LABS: BILIRUBIN, DIRECT <0.1 mg/dL (0.0-0.2); BILIRUBIN,INDIRECT 0.3 mg/dL (0.0-0.9)
[2016-11-06 00:09] LABS: URINE SOURCE CLEAN CATCH
[2016-11-06 00:18] LABS: URINE APPEARANCE CLEAR; URINE BILIRUBIN NEG (NEG); URINE BLOOD NEG (NEG); URINE COLOR YELLOW; URINE GLUCOSE NEG (NEG); URINE KETONE NEG (NEG); URINE LEUKOCYTE ESTERASE NEG (NEG); URINE NITRATE NEG (NEG); URINE PH 5.5 (5-8); URINE PROTEIN NEG (NEG); URINE UROBILINOGEN 0.2 MG/DL (NEG)
[2016-11-06 00:28] LABS: CULTURE INDICATED? NO
[2016-11-06 03:01] LABS: POC - TROPONIN <0.05 ng/mL (<=0.05)
[2016-11-06 04:46] LABS: AMPHETAMINE NEG (NEG); BARBITURATES NEG (NEG); BENZODIAZEPINES NEG (NEG); COCAINE NEG (NEG); MARIJUANA NEG (NEG); OPIATES POS (NEG); TRICYCLIC ANTIDEPRESSANTS NEG (NEG); U METHADONE NEG (NEG)
[2016-11-06 07:19] LABS: BASOPHIL% 0.3 % (0-2.5); HEMATOCRIT 24.8 % (38.0-50.0); HEMOGLOBIN 8.3 gm/dL (13.0-16.0); LYMPHOCYTE# 1.4 X10e3 (1.0-3.5); LYMPHOCYTE% 9.8 % (17.0-45.0); MEAN CELL VOLUME 86.4 FL (83-96); MEAN CORPUSCULAR HEMOGLOBIN 28.8 PG (28-34); MEAN CORPUSCULAR HGB CONC 33.4 g/dL (30-36); MEAN PLATELET VOLUME 6.3 FL (6.5-11.5); MONOCYTE# 1.4 X10e3 (0-1.0); MONOCYTE% 9.6 % (3.0-12.0); NEUTROPHIL# 11.3 X10e3 (1.5-7.1); NEUTROPHIL% 80.3 % (40-75); PLATELET COUNT 792 X10e3 (140-420); RED BLOOD COUNT 2.87 X10e (3.90-5.60); RED CELL DISTRIBUTION WIDTH 19.1 % (11.0-15.5); WHITE BLOOD COUNT 14.1 X10e3 (4.0-10.5)
[2016-11-06 07:20] LABS: DIFF IND NO
[2016-11-06 08:28] LABS: BUN/CREATININE RATIO 12.22; CALCIUM SERUM 8.1 mg/dL (8.4-10.2); CREATININE SERUM 0.9 mg/dL (0.6-1.4); GLOM FILT RATE Estimated 93.8 mL/min (>60); POTASSIUM 5.4 mmol/L (3.5-5.1)
[2016-11-06 09:42] LABS: THYROID STIMULATING HORMONE 1.04 uIU/ml (0.34-5.60)
[2016-11-06 09:49] LABS: FREE THYROXIN (T4) 1.34 ng/dL (0.58-1.64)
[2016-11-07 04:56] LABS: HEMATOCRIT 27.3 % (38.0-50.0); MEAN CELL VOLUME 85.4 FL (83-96); MEAN CORPUSCULAR HGB CONC 32.8 g/dL (30-36); MEAN PLATELET VOLUME 6.6 FL (6.5-11.5); RED BLOOD COUNT 3.2 X10e (3.90-5.60); RED CELL DISTRIBUTION WIDTH 19.1 % (11.0-15.5); WHITE BLOOD COUNT 17.2 X10e3 (4.0-10.5)
[2016-11-07 06:57] LABS: CALCIUM SERUM 8.2 mg/dL (8.4-10.2); CREATININE SERUM 0.6 mg/dL (0.6-1.4); GLOM FILT RATE Estimated 110.9 mL/min (>60); POTASSIUM 5.1 mmol/L (3.5-5.1)
[2016-11-08 06:37] LABS: CALCIUM SERUM 8.3 mg/dL (8.4-10.2); CREATININE SERUM 0.5 mg/dL (0.6-1.4); GLOM FILT RATE Estimated 119.5 mL/min (>60); POTASSIUM 5.2 mmol/L (3.5-5.1)
[2016-11-08 06:39] LABS: HEMATOCRIT 25.5 % (38.0-50.0); HEMOGLOBIN 8.4 gm/dL (13.0-16.0); MEAN CELL VOLUME 85.2 FL (83-96); MEAN CORPUSCULAR HEMOGLOBIN 28.2 PG (28-34); MEAN CORPUSCULAR HGB CONC 33.1 g/dL (30-36); MEAN PLATELET VOLUME 6.8 FL (6.5-11.5); RED BLOOD COUNT 2.99 X10e (3.90-5.60); RED CELL DISTRIBUTION WIDTH 18.9 % (11.0-15.5); WHITE BLOOD COUNT 17.6 X10e3 (4.0-10.5)
[2016-11-09 05:27] LABS: HEMATOCRIT 25.9 % (38.0-50.0); HEMOGLOBIN 8.4 gm/dL (13.0-16.0); MEAN CELL VOLUME 84.8 FL (83-96); MEAN CORPUSCULAR HEMOGLOBIN 27.6 PG (28-34); MEAN CORPUSCULAR HGB CONC 32.5 g/dL (30-36); RED BLOOD COUNT 3.05 X10e (3.90-5.60); RED CELL DISTRIBUTION WIDTH 19.2 % (11.0-15.5)
[2016-11-09 07:15] LABS: CALCIUM SERUM 8.2 mg/dL (8.4-10.2); CREATININE SERUM 0.5 mg/dL (0.6-1.4); GLOM FILT RATE Estimated 119.5 mL/min (>60)
[2016-11-09 07:35] LABS: POTASSIUM 3.7 mmol/L (3.5-5.1)
[2016-11-10 05:18] LABS: HEMATOCRIT 24.8 % (38.0-50.0); HEMOGLOBIN 8.3 gm/dL (13.0-16.0); MEAN CELL VOLUME 84.4 FL (83-96); MEAN CORPUSCULAR HEMOGLOBIN 28.2 PG (28-34); MEAN CORPUSCULAR HGB CONC 33.4 g/dL (30-36); MEAN PLATELET VOLUME 6.8 FL (6.5-11.5); RED BLOOD COUNT 2.94 X10e (3.90-5.60); RED CELL DISTRIBUTION WIDTH 19.3 % (11.0-15.5)
[2016-11-10 05:24] LABS: PROTHROMBIN TIME (PATIENT) 11.2 SECONDS (10.0-11.7)
[2016-11-10 05:54] LABS: CREATININE SERUM 0.5 mg/dL (0.6-1.4); GLOM FILT RATE Estimated 119.5 mL/min (>60); POTASSIUM 4.3 mmol/L (3.5-5.1)
[2016-11-11 05:16] LABS: HEMATOCRIT 23.3 % (38.0-50.0); HEMOGLOBIN 7.7 gm/dL (13.0-16.0); MEAN CELL VOLUME 84.8 FL (83-96); MEAN CORPUSCULAR HEMOGLOBIN 27.9 PG (28-34); MEAN CORPUSCULAR HGB CONC 32.9 g/dL (30-36); MEAN PLATELET VOLUME 6.6 FL (6.5-11.5); RED BLOOD COUNT 2.75 X10e (3.90-5.60); RED CELL DISTRIBUTION WIDTH 19.2 % (11.0-15.5); WHITE BLOOD COUNT 14.8 X10e3 (4.0-10.5)
[2016-11-11 05:45] LABS: CALCIUM SERUM 7.9 mg/dL (8.4-10.2); CREATININE SERUM 0.5 mg/dL (0.6-1.4); GLOM FILT RATE Estimated 119.5 mL/min (>60); POTASSIUM 4.1 mmol/L (3.5-5.1)
[2016-11-11 06:28] LABS: URINE APPEARANCE CLEAR; URINE BILIRUBIN NEG (NEG); URINE BLOOD NEG (NEG); URINE COLOR YELLOW; URINE GLUCOSE NEG (NEG); URINE KETONE NEG (NEG); URINE LEUKOCYTE ESTERASE NEG (NEG); URINE NITRATE NEG (NEG); URINE PROTEIN NEG (NEG); URINE SPECIFIC GRAVITY 1.021 (1.003-1.035)
[2016-11-12 06:29] LABS: BUN/CREATININE RATIO 22.5; CALCIUM SERUM 8.4 mg/dL (8.4-10.2); CREATININE SERUM 0.4 mg/dL (0.6-1.4); POTASSIUM 4.5 mmol/L (3.5-5.1)
[2016-11-13 06:22] LABS: HEMATOCRIT 23.8 % (38.0-50.0); HEMOGLOBIN 7.7 gm/dL (13.0-16.0); MEAN CELL VOLUME 84.9 FL (83-96); MEAN CORPUSCULAR HEMOGLOBIN 27.3 PG (28-34); MEAN CORPUSCULAR HGB CONC 32.2 g/dL (30-36); MEAN PLATELET VOLUME 6.5 FL (6.5-11.5); RED BLOOD COUNT 2.8 X10e (3.90-5.60); RED CELL DISTRIBUTION WIDTH 19.2 % (11.0-15.5); WHITE BLOOD COUNT 12.8 X10e3 (4.0-10.5)
[2016-11-13 06:44] LABS: CREATININE SERUM 0.5 mg/dL (0.6-1.4); GLOM FILT RATE Estimated 119.5 mL/min (>60); POTASSIUM 4.4 mmol/L (3.5-5.1)
[2016-11-13 13:48] LABS: BASOPHIL# 0.1 X10e3 (0-0.3); BASOPHIL% 0.5 % (0-2.5); EOSINOPHIL% 0.2 % (0.0-7.0); HEMOGLOBIN 7.9 gm/dL (13.0-16.0); LYMPHOCYTE# 2.7 X10e3 (1.0-3.5); LYMPHOCYTE% 17.2 % (17.0-45.0); MEAN CELL VOLUME 86.3 FL (83-96); MEAN CORPUSCULAR HEMOGLOBIN 27.2 PG (28-34); MEAN CORPUSCULAR HGB CONC 31.5 g/dL (30-36); MEAN PLATELET VOLUME 6.6 FL (6.5-11.5); MONOCYTE# 1.2 X10e3 (0-1.0); MONOCYTE% 7.7 % (3.0-12.0); NEUTROPHIL# 11.7 X10e3 (1.5-7.1); NEUTROPHIL% 74.4 % (40-75); PLATELET COUNT 917 X10e3 (140-420); RED CELL DISTRIBUTION WIDTH 19.3 % (11.0-15.5); WHITE BLOOD COUNT 15.7 X10e3 (4.0-10.5)
[2016-11-13 13:50] LABS: DIFF IND YES
[2016-11-13 14:15] LABS: INR 1.1; PROTHROMBIN TIME (PATIENT) 11.5 SECONDS (10.0-11.7)
[2016-11-13 14:36] LABS: PLATELET ESTIMATE INCREASED (NORMAL)
[2016-11-13 14:37] LABS: ANISOCYTOSIS SL
[2016-11-14 06:56] LABS: CALCIUM SERUM 7.8 mg/dL (8.4-10.2); CREATININE SERUM 0.5 mg/dL (0.6-1.4); GLOM FILT RATE Estimated 119.5 mL/min (>60); POTASSIUM 4.6 mmol/L (3.5-5.1)
[2016-11-14 11:14] LABS: HEMOGLOBIN 7.3 gm/dL (13.0-16.0); MEAN CELL VOLUME 84.8 FL (83-96); MEAN PLATELET VOLUME 6.4 FL (6.5-11.5); RED BLOOD COUNT 2.6 X10e (3.90-5.60); RED CELL DISTRIBUTION WIDTH 19.8 % (11.0-15.5)
[2016-11-15 01:40] LABS: MEAN CELL VOLUME 83.9 FL (83-96); MEAN CORPUSCULAR HGB CONC 32.2 g/dL (30-36); MEAN PLATELET VOLUME 6.2 FL (6.5-11.5); RED BLOOD COUNT 2.5 X10e (3.90-5.60); RED CELL DISTRIBUTION WIDTH 19.6 % (11.0-15.5); WHITE BLOOD COUNT 11.1 X10e3 (4.0-10.5)
[2016-11-15 01:44] LABS: HEMOGLOBIN 6.8 gm/dL (13.0-16.0)
[2016-11-15 01:47] LABS: PARTIAL THROMBOPLASTIN TIME 43.7 SECONDS (23.5-31.3); PROTHROMBIN TIME (PATIENT) 11.2 SECONDS (10.0-11.7)
[2016-11-15 02:13] LABS: ALBUMIN SERUM 1.6 g/dL (3.5-5.0); BILIRUBIN,TOTAL 0.5 mg/dL (0.2-2.0); CALCIUM SERUM 7.8 mg/dL (8.4-10.2); CREATININE SERUM 0.5 mg/dL (0.6-1.4); GLOM FILT RATE Estimated 119.5 mL/min (>60); POTASSIUM 4.5 mmol/L (3.5-5.1)
[2016-11-16 03:12] LABS: HEMATOCRIT 28.3 % (38.0-50.0); MEAN CELL VOLUME 84.6 FL (83-96); MEAN CORPUSCULAR HEMOGLOBIN 27.6 PG (28-34); MEAN CORPUSCULAR HGB CONC 32.6 g/dL (30-36); MEAN PLATELET VOLUME 6.6 FL (6.5-11.5); RED BLOOD COUNT 3.35 X10e (3.90-5.60); RED CELL DISTRIBUTION WIDTH 17.4 % (11.0-15.5); WHITE BLOOD COUNT 12.1 X10e3 (4.0-10.5)
[2016-11-16 03:13] LABS: HEMOGLOBIN 9.2 gm/dL (13.0-16.0)
[2016-11-16 03:27] LABS: PARTIAL THROMBOPLASTIN TIME 49.5 SECONDS (23.5-31.3); PROTHROMBIN TIME (PATIENT) 10.8 SECONDS (10.0-11.7)
[2016-11-16 03:44] LABS: BUN/CREATININE RATIO 27.5; CALCIUM SERUM 8.2 mg/dL (8.4-10.2); CREATININE SERUM 0.4 mg/dL (0.6-1.4); POTASSIUM 4.4 mmol/L (3.5-5.1)
[2016-11-17 05:45] LABS: HEMATOCRIT 27.3 % (38.0-50.0); MEAN CELL VOLUME 85.1 FL (83-96); MEAN CORPUSCULAR HEMOGLOBIN 28.2 PG (28-34); MEAN CORPUSCULAR HGB CONC 33.1 g/dL (30-36); MEAN PLATELET VOLUME 6.8 FL (6.5-11.5); RED BLOOD COUNT 3.2 X10e (3.90-5.60); RED CELL DISTRIBUTION WIDTH 18.6 % (11.0-15.5); WHITE BLOOD COUNT 10.7 X10e3 (4.0-10.5)
[2016-11-17 06:13] LABS: INR 1.1; PROTHROMBIN TIME (PATIENT) 11.9 SECONDS (10.0-11.7)
[2016-11-17 06:26] LABS: CREATININE SERUM 0.5 mg/dL (0.6-1.4); GLOM FILT RATE Estimated 119.5 mL/min (>60); POTASSIUM 4.1 mmol/L (3.5-5.1)
[2016-11-17 15:53] LABS: INR 1.1; PARTIAL THROMBOPLASTIN TIME 72.8 SECONDS (23.5-31.3); PROTHROMBIN TIME (PATIENT) 11.9 SECONDS (10.0-11.7)
[2016-11-18 07:01] LABS: HEMOGLOBIN 9.3 gm/dL (13.0-16.0); MEAN CELL VOLUME 85.6 FL (83-96); MEAN CORPUSCULAR HEMOGLOBIN 28.4 PG (28-34); MEAN CORPUSCULAR HGB CONC 33.2 g/dL (30-36); MEAN PLATELET VOLUME 6.6 FL (6.5-11.5); RED BLOOD COUNT 3.27 X10e (3.90-5.60); RED CELL DISTRIBUTION WIDTH 18.7 % (11.0-15.5)
[2016-11-18 08:17] LABS: INR 1.2; PROTHROMBIN TIME (PATIENT) 12.7 SECONDS (10.0-11.7)
[2016-11-19 06:09] LABS: HEMATOCRIT 27.1 % (38.0-50.0); MEAN CELL VOLUME 85.8 FL (83-96); MEAN CORPUSCULAR HEMOGLOBIN 28.4 PG (28-34); MEAN PLATELET VOLUME 6.5 FL (6.5-11.5); RED BLOOD COUNT 3.16 X10e (3.90-5.60); RED CELL DISTRIBUTION WIDTH 18.7 % (11.0-15.5); WHITE BLOOD COUNT 10.3 X10e3 (4.0-10.5)
[2016-11-19 06:30] LABS: INR 2.1; PROTHROMBIN TIME (PATIENT) 23.4 SECONDS (10.0-11.7)
[2016-11-19 07:18] LABS: BUN/CREATININE RATIO 33.33; CREATININE SERUM 0.3 mg/dL (0.6-1.4); GLOM FILT RATE Estimated 147.4 mL/min (>60); POTASSIUM 4.5 mmol/L (3.5-5.1)
[2016-11-19] MEDS ORDERED: AMIODARONE PO (12:24)
[2016-11-19] MEDS ORDERED: ACETAMINOPHEN650 M4 PO (12:25)
[2016-11-19] MEDS ORDERED: COUMADIN PO (12:25)
[2016-11-19] MEDS ORDERED: HALOPERIDOL1 MG PO (12:27)
[2016-11-19] MEDS ORDERED: NILSTAT PO (12:27)
[2016-11-19] MEDS ORDERED: LIPITOR20 MG PO (12:29)
[2016-11-19] MEDS ORDERED: SANTYL30 GM XX (12:30)
[2016-11-19] MEDS ORDERED: PERCOCET 5/321 UDTAB PO (12:35)
[2016-12-07] MEDS ORDERED: COMBIVENT U/D3 M2 INH (04:25)
[2016-12-07] MEDS ORDERED: PREDNISONE PO (04:28)
[2016-12-07] MEDS ORDERED: DESYREL50 MG PO (04:30)
[2016-12-07] MEDS ORDERED: BUMEX1 MG PO (04:31)
[2016-12-07] MEDS ORDERED: MULTI-VITAMIN1 EAC1 PO (04:33)
[2016-12-07] MEDS ORDERED: K-TAB ER20 MEQ PO (04:36)
[2016-12-07] MEDS ORDERED: ASCORBIC ACID500 M3 PO (04:36)
== END 2016-11-19 15:29 | disposition home health service (06) | DRG 163 ==
LOC: CED 22:10 → C3A PCU 11-06 04:15 → CEDOF 11-06 04:15 → CED 11-06 04:20 → CEDOF 11-06 06:26 → C3A PCU 11-06 10:27 → CEDOF 11-06 10:27 → C3A PCU 11-13 07:44
PROVIDERS: Emergency Medicine; Family Medicine; Internal Medicine; Internal Medicine Gastroenterology; Internal Medicine Pulmonary Disease
PROC: 30233N1 Transfusion of Nonautologous Red Blood Cells into Peripheral Vein, Percutaneous Approach (ICD-10-PCS; 2016-11-08)
PROC: 0B928ZZ Drainage of Carina, Via Natural or Artificial Opening Endoscopic (ICD-10-PCS; 2016-11-09)
PROC: 0BBB8ZX Excision of Left Lower Lobe Bronchus, Via Natural or Artificial Opening Endoscopic, Diagnostic (ICD-10-PCS; 2016-11-09)
PROC: 0B9F8ZX Drainage of Right Lower Lung Lobe, Via Natural or Artificial Opening Endoscopic, Diagnostic (ICD-10-PCS; principal; 2016-11-09 07:00)
PROC: 0B968ZZ Drainage of Right Lower Lobe Bronchus, Via Natural or Artificial Opening Endoscopic (ICD-10-PCS; 2016-11-09 07:00)
PROC: 041L0JH Bypass Left Femoral Artery to Right Femoral Artery with Synthetic Substitute, Open Approach (ICD-10-PCS; 2016-11-13)
PROC: 0DJ08ZZ Inspection of Upper Intestinal Tract, Via Natural or Artificial Opening Endoscopic (ICD-10-PCS; 2016-11-16)
DX: J15.1 Pneumonia due to Pseudomonas (principal); G92 Toxic encephalopathy; E43 Unspecified severe protein-calorie malnutrition; I74.3 Embolism and thrombosis of arteries of the lower extremities; I96 Gangrene, not elsewhere classified; I11.0 Hypertensive heart disease with heart failure; L89.153 Pressure ulcer of sacral region, stage 3; I50.22 Chronic systolic (congestive) heart failure; T17.590A Other foreign object in bronchus causing asphyxiation, initial encounter; E46 Unspecified protein-calorie malnutrition; Z68.1 Body mass index [BMI] 19.9 or less, adult; I42.9 Cardiomyopathy, unspecified; E87.1 Hypo-osmolality and hyponatremia; E87.2 Acidosis; T87.89 Other complications of amputation stump; E78.5 Hyperlipidemia, unspecified; Z88.0 Allergy status to penicillin; I48.91 Unspecified atrial fibrillation; D64.9 Anemia, unspecified; E86.0 Dehydration; R25.1 Tremor, unspecified; K29.00 Acute gastritis without bleeding; E87.5 Hyperkalemia; F10.20 Alcohol dependence, uncomplicated; T87.53 Necrosis of amputation stump, right lower extremity; K26.9 Duodenal ulcer, unspecified as acute or chronic, without hemorrhage or perforation; D47.3 Essential (hemorrhagic) thrombocythemia; F17.210 Nicotine dependence, cigarettes, uncomplicated
CPT/HCPCS: 36415; 36430; 51701; 70450; 71010; 73706; 74174; 80048; 80053; 80076; 80202; 80307; 81003; 82140; 82150; 82308; 82553; 82607; 82746; 83605; 83690; 83735; 83880; 84100; 84439; 84443; 84484; 85025; 85027; 85610; 85730; 86850; 86900; 86901; 86923; 87040; 87070; 87077; 87086; 87102; 87116; 87186; 87205; 87206; 88108; 88305; 88312; 89190; 93005; 93926; 94640; 94760; 96360; 96361; 97110; 97163; 97166; 97530; 97535; 99285; C9113; G0480; G8978-GP; G8979-GP; G8987-GO; G8988-GO; J0171; J0282; J0330; J1644; J1940; J2185; J2250; J2270; J2370; J2710; J2720; J3010; J3370; L5460; P9016; Q9967